=== PATIENT | female | born 1945 | race Caucasian/White ===

== ENCOUNTER 2016-03-04 09:00 | Outpatient (CLI) | payer MEDICARE | END 2016-03-04 09:01 | disposition home or self-care (01) | DX: I48.91 Unspecified atrial fibrillation (principal); Z79.899 Other long term (current) drug therapy ==

== ENCOUNTER 2016-04-01 20:18 | Outpatient (CLI) | payer MEDICARE | END 2016-04-01 20:19 | disposition home or self-care (01) | DX: I48.91 Unspecified atrial fibrillation (principal); Z79.899 Other long term (current) drug therapy ==

== ENCOUNTER 2016-04-15 12:32 | Outpatient (CLI) | payer MEDICARE | END 2016-04-15 12:33 | disposition home or self-care (01) | DX: I48.91 Unspecified atrial fibrillation (principal); Z79.899 Other long term (current) drug therapy ==

== ENCOUNTER 2016-05-06 09:15 | Outpatient (CLI) | payer MEDICARE | END 2016-05-06 09:16 | disposition home or self-care (01) | DX: I48.91 Unspecified atrial fibrillation (principal); Z79.899 Other long term (current) drug therapy ==

== ENCOUNTER 2016-05-24 08:21 | Outpatient (CLI) | payer MEDICARE | END 2016-05-24 08:22 | disposition home or self-care (01) | DX: E78.5 Hyperlipidemia, unspecified (principal); I48.91 Unspecified atrial fibrillation ==

== ENCOUNTER 2016-06-03 08:00 | Outpatient (CLI) | payer MEDICARE | END 2016-06-03 08:01 | DX: I48.91 Unspecified atrial fibrillation (principal); Z79.899 Other long term (current) drug therapy ==

== ENCOUNTER 2016-06-03 08:00 | Outpatient (CLI) | payer MEDICARE | END 2016-06-03 08:01 | disposition home or self-care (01) | DX: R73.9 Hyperglycemia, unspecified (principal) ==

== ENCOUNTER 2016-06-11 11:02 | Outpatient (CLI) | payer MEDICARE | END 2016-06-11 11:03 | disposition home or self-care (01) | DX: Z12.31 Encounter for screening mammogram for malignant neoplasm of breast (principal); R92.1 Mammographic calcification found on diagnostic imaging of breast; Z85.3 Personal history of malignant neoplasm of breast ==

== ENCOUNTER 2016-06-20 12:00 | Outpatient (CLI) | payer MEDICARE | END 2016-06-20 12:01 | disposition home or self-care (01) | DX: R92.1 Mammographic calcification found on diagnostic imaging of breast (principal) ==

== ENCOUNTER 2016-07-11 10:53 | Outpatient (CLI) | payer MEDICARE | END 2016-07-11 10:54 | disposition home or self-care (01) | LOC: LAB.N 10:53 | PROVIDERS: ATTEND Internal Medicine Cardiovascular Disease | DX: I48.91 Unspecified atrial fibrillation (principal); Z79.899 Other long term (current) drug therapy | CPT/HCPCS: 85610 ==

== ENCOUNTER 2016-07-18 10:43 | Outpatient (CLI) | payer MEDICARE | END 2016-07-18 10:44 | disposition home or self-care (01) | DX: I48.91 Unspecified atrial fibrillation (principal); Z79.899 Other long term (current) drug therapy ==

== ENCOUNTER 2016-08-02 07:52 | Outpatient (CLI) | payer MEDICARE ==
[2016-08-02 08:20] LABS: CREATININE 0.9 mg/dL (0.4-1.0)
[2016-08-02] MEDS: GADOBUTROL 10 MMOL/10 ML SYRINGE IVP ONE (09:41)
--- NOTE | 2016-08-02 12:29 | MRI Report ---
MRI BILATERAL BREASTS WITH AND WITHOUT CONTRAST: 08/02/2016 CLINICAL INDICATION: Calcifications on mammogram, discordant biopsy results, history of right breast cancer. TECHNIQUE: Using a dedicated breast coil, axial precontrast STIR, T1, dynamic postcontrast axial 3D images, axial 3D high-resolution images, and postcontrast diffusion-weighted images were obtained. A total of 9 mL of Gadavist was administered intravenously. Post-processing with dynamic contrast enh ancement analysis and multiplanar reformations were performed with [employer]. FINDINGS: The breasts demonstrate no significant background parenchymal enhancement. Right breast: Postoperative and post-treatment changes are present in the right breast. There is no evidence of abnormal enhancement to suggest recurrent or residual tumor. Postoperative changes are noted in the right axilla. No axillary adenopathy is seen. Left breast: There is no abnormal enhancement in the left breast. Biopsy marker is noted in the lef t lower central breast. Left axillary lymph nodes appear unremarkable. IMPRESSION: 1. POSTOPERATIVE AND POST-TREATMENT CHANGES IN THE RIGHT BREAST. 2. POST-BIOPSY CHANGES IN THE LEFT BREAST. RECOMMENDATION: Given discordant biopsy results on stereotactic biopsy, wire localization and surgic al excision of left breast calcifications, as planned for 08/06/2016. BIRADS CATEGORY 2 - BENIGN FINDINGS. The patient has been instructed to obtain results from Dr. Escobar. COMMENT: Breast MRI is a highly sensitive examination, and has a cancer detection threshold down to approximately 5 mm; however, it only has moderate specificity. Although breast MRI has a high negati ve predictive value, appropriate clinical and mammographic followup are always necessary. MRI may mi ss less angiogenic tumors; therefore, it should not be used to avoid a biopsy which is otherwise clin ically indicated. Normal-appearing lymph nodes may contain microscopic tumor. Due to prone position ing, the described location of findings may differ from other modalities. :9 JOB #: [id number] EXT JOB #:[id number]
== END 2016-08-02 07:53 | disposition home or self-care (01) ==
LOC: LAB 07:52
PROVIDERS: ATTEND Surgery
DX: N63 Unspecified lump in breast (principal); Z85.3 Personal history of malignant neoplasm of breast
CPT/HCPCS: 36415; 82565; A9585; C8908; 77059

== ENCOUNTER 2016-08-06 08:36 | Day surgery (SDC) | payer MEDICARE ==
[~2016-08-06 08:36] MED LIST: ceFAZolin 2 GM/50 ML 50 ML IV ONE
[2016-08-06] MEDS ORDERED: LACTATED RINGERS 1,000 ML IV ONE ×2 (09:04→14:15)
[2016-08-06] MEDS ORDERED: BUPIVACAINE 0.5%-EPI 1:200000 PF 30 ML VIAL SUBQ ONE ×2 (12:18)
[2016-08-06] MEDS: BUFFERED LIDOCAINE 10 ML SYRINGE IU ONE (12:21)
[2016-08-06] MEDS ORDERED: BUPIVACAINE 0.5% PF 30 ML VIAL SUBQ ONE (12:58)
[2016-08-06] MEDS ORDERED: fentaNYL 100 MCG/2 ML VIAL IVP ONE (13:00)
[2016-08-06] MEDS ORDERED: MIDAZOLAM 2 MG/2 ML VIAL IVP ONE (13:00)
[2016-08-06] MEDS ORDERED: ONDANSETRON 4 MG/2 ML VIAL IVP ONE (13:00)
[2016-08-06] MEDS ORDERED: LIDOCAINE-MPF 2% 5 ML VIAL IM ONE (13:00)
[2016-08-06] MEDS ORDERED: PROPOFOL 200 MG/20 ML VIAL IVP ONE (13:00)
--- NOTE | 2016-08-06 13:47 | Ultrasound Report ---
ULTRASOUND-GUIDED LEFT BREAST LOCALIZATION: 08/06/2016 Preliminary to the wire localization, an ultrasound exam was done for evaluation of a small stellate lesion noted in the upper outer quadrant of the left breast on review of patient's left mammogram prior to needle localization of calcifications within the left breast. Left breast ultrasound confirms the presence of a 1 cm mass. The mass is hypoechoic with pronounced shadowing and hyperechoic margins. Findings appear classic for breast carcinoma. This lesion is located in the 12 o'clock position 4 cm from the left nipple. Findings have a classic appearance of a breast carcinoma. Since patient is going to surgery today, it was decided to also perform a needle localization on this lesion. The needle localization was done after patient had a bracketed localization under mammographic guidance of the calcifications at the 6 o'clock position. PAR conference was held and informed consent was obtained. Patient's left breast was sterilely prepped with Betadine and Chloraprep. Sterile technique was used throughout the exam; 5 mL of buffered 1% Xylocaine was used in the skin and subcutaneous tissues of the upper outer quadrant of the left breast. Under ultrasound guidance, a 5 cm [place] needle with an inner core hook stylet was placed into the mass and the hook wire was deployed. The mass was very hard and it was difficult to deploy the wire but it was accomplished. The needle was then left in place and was covered with sterile 4 x 4. Final images were reviewed with Dr. Escobar. Also, the radiologist assisted Dr. Escobar with localizing the lesion in surgery using the surgical SonoSite unit. This was done to assure an accurate incision. IMPRESSION: 1. A 1 CM MASS IS NOTED IN THE 12 O'CLOCK POSITION OF THE LEFT BREAST 4 CM SUPERIOR TO THE NIPPLE. THIS MASS HAD CHARACTERISTICS OF A BREAST CARCINOMA ON ULTRASOUND DISCUSSED ABOVE. 2. NEEDLE LOCALIZATION IN THIS LESION WAS DONE UNDER ULTRASOUND GUIDANCE USING A HOMER 5 CM NEEDLE WITH AN INNER CORE HOOK STYLET. JOB #: [id number] EXT JOB #: [id number] HELLEN
[2016-08-06] MEDS ORDERED: oxyCOD/ACETAMIN 5 MG/325 MG TABLET PO ONE (15:43)
[2016-08-06 16:06] VITALS: BP 128/66
--- NOTE | 2016-08-07 07:43 | OPERATIVE REPORT ---
DATE OF SURGERY: 08/06/2016 00:00:00 PREOPERATIVE DIAGNOSIS: Left breast mass. POSTOPERATIVE DIAGNOSES: Left breast mass. PROCEDURE: left breast partial mastectomy SURGEON: Yuki Escobar MD ANESTHESIOLOGIST: Susan Landon CRNA ANESTHESIA: General INDICATION FOR PROCEDURE: This is a 70-year-old female who had a mammographic abnormality in the 6-o'clock position of the left breast which was biopsied; however, biopsy results were not concordant with the mammographic finding, and surgical excision was recommended. The patient on the day of the procedure went for radiologic identification with wire localization, and on this mammography a second lesion was noted in her left breast. Of note, the patient did have a preop MRI that did not suggest any other lesions other than the one lesion at the 6-o'clock position. For this reason, the radiologist placed a needle into the newly-found 1 cm lesion located in the 12-o'clock position of the left breast, which he feels is strongly likely to be carcinoma. Additionally, needle brackets were placed in the 6-o'clock calcification lesions. Prior to proceeding with surgery, a full discussion was had with the patient regarding this new finding and the increased chance of having a second surgery either for positive margins or for the necessity of a sentinel lymph node biopsy; she understands and agrees to proceed. FINDINGS: After obtaining informed consent with the patient, she was brought into the operating room and positioned on the operating table in a supine position, taking note of pressure points. The LMA was placed by Anesthesiology, 2 grams of Ancef were administered, she was prepped and draped in the usual sterile fashion, and a time-out was taken according to protocol. Ultrasound guidance was utilized to find the tip of both needles, and this was marked on the skin. A 3 cm incision was created in the 12-o'clock position approximately 4 cm above the nipple. This was deepened down, creating skin flaps and circumferentially dissecting the breast tissue around the needle. The needle was then disconnected from its hub and withdrawn with the wire remaining in place. The wire was then withdrawn into the incision cavity. The lumpectomy specimen was then completely excised, and hemostasis was achieved by packing the wound. The specimen was then marked with a long stitch placed anteriorly and a short stitch placed laterally; it was then passed off as a specimen. Attention was then turned to the 6-o'clock lesion. A 4 cm incision was created inferior to the nipple approximately 5 cm. This was deepened down, creating skin flaps and circumferentially dissecting breast tissue around the finder needles. These lesions were noted to be more deep in nature, and dissection was slightly more difficult. Upon circumferential dissection, the needles were removed and the wires left in place. The wires were then withdrawn into the incisional cavity. The lumpectomy specimen was then completely removed and the cavity packed. The specimen was marked with a long stitch superiorly and a short stitch laterally and was passed off. Both specimens were sent for radiologic confirmation of the mammographic lesions in question, and this was confirmed. Both packings were removed, and hemostasis was noted to be achieved. The cavities were irrigated. Both cavities were closed with 3-0 Vicryl for deep layers and 4-0 Monocryl for the superficial skin, and Dermabond was applied. The patient was extubated and taken to the recovery room in stable condition. ESTIMATED BLOOD LOSS: 10 mL. SPECIMENS 1. Breast lump in the 12-o'clock position. 3. Breast lump in the 6-o'clock position. JOB #: [id number] EXT JOB #:[id number] MTDPiper
--- NOTE | 2016-08-07 08:41 | Mammography Report ---
PRESURGICAL NEEDLE LOCALIZATION OF AN ELONGATED CLUSTER OF CALCIFICATIONS IN THE 6 O'CLOCK POSITION OF THE LEFT BREAST UNDER MAMMOGRAPHIC GUIDANCE: 2016 Prior to the needle localization, coned-down compression craniocaudad view of the left breast was obtained for evaluation of the stellate lesion at the 12 to 1 o'clock position in the outer half of the left breast. Coned-down craniocaudad view was done and there was still present this small stellate lesion measuring 1.6 cm. It was decided prior to the localization to obtain a left breast ultrasound for evaluation of this lesion. A report will follow on this ultrasound. PRESURGICAL LOCALIZATION: This began after patient's focal left breast ultrasound today. A PAR conference was held and informed consent was obtained. Patient's left breast was sterilely prepped with Betadine and Chloraprep after patient was placed in a localizing grid. Using a localizing grid, coordinates were obtained in the mediolateral projection of the cluster of calcification for a bracketed localization. Two 10 cm [place] needles were utilized with inner core hook stylet. Each of these needles were placed into the breast at approximately the 6 o'clock position. These needles bracketed the anterior and posterior aspect of the cluster of calcification in question. Localizing images demonstrated that the needle tips as well as the hook wires were located at the anterior and posterior borders of the cluster of calcifications. The proximal ends of the needles that were lying outside of the breast were covered with a sterile 4 x 4 after the hook wires were deployed and locked in place. The images were reviewed with patient's surgeon, Dr. Escobar, immediately before patient's surgery. Also, Dr. Galvan assisted Dr. Escobar in localizing the tips of both of the bracketing needles under ultrasound guidance for purposes of accuracy of surgical incision. The small surgical clip deployed at the time of patient's stereotactic biopsy is seen inferior to the cluster of calcifications. Dr. Escobar indicated that she will also attempt to remove this area. IMPRESSION: 1. A 1.6 CM STELLATE LESION IS NOTED IN THE 12 TO 1 O'CLOCK POSITION OF THE ANTERIOR HALF OF THE LEFT BREAST ON ADDITIONAL MAMMOGRAPHIC VIEWS. A LEFT BREAST ULTRASOUND WILL BE OBTAINED FOR FURTHER EVALUATION OF THIS FINDING. ULTRASOUND REPORT IS TO FOLLOW. 2. PRESURGICAL BRACKETED LOCALIZATION OF A SMALL CLUSTER OF CALCIFICATIONS WAS PERFORMED UNDER MAMMOGRAPHIC GUIDANCE USING TWO HOMER NEEDLES DISCUSSED ABOVE. ADDENDUM: Dr. Galvan received a voice order from patient's surgeon, Dr. Escobar for additional left breast mammogram view, left breast ultrasound, and ultrasound- guided wire localization. He did this before proceeding with these examinations. This was done in the morning of 08/06/2016. JOB #: [id number] EXT JOB #: [id number]
--- NOTE | 2016-08-07 08:43 | Mammography Report ---
FIRST SPECIMEN RADIOGRAPH: 08/06/2016 First specimen radiograph was from the lesion in the 12 o'clock position of the left breast. First s pecimen radiograph contained a hook wire in place. Within the central aspect of the specimen was a s tellate mass measuring 1.3 cm x 0.5 cm. This represents the finding noted on today's ultrasound of t he left breast. Dr. Escobar in Surgery was informed by Dr. Galvan of the successful removal of the lesion in questi on in the 12 o'clock position of the left breast. IMPRESSION: A 1.3 CM X 0.5 CM SPICULATED MASS IS NOTED IN THE SPECIMEN RADIOGRAPH. IT REPRESENTS TH E LESION SEEN ON TODAY'S ULTRASOUND IN THE 12 O'CLOCK POSITION OF THE LEFT BREAST. JOB #: [id number] EXT JOB #:
--- NOTE | 2016-08-07 09:43 | Mammography Report ---
EXAM: [id number] MARY/SPECSUR SECOND SPECIMEN RADIOGRAPH: 08/06/2016 This represents the second specimen removed from the left breast. Specimen radiograph demonstrates t wo hook wires in place in association with the cluster of calcifications in question within the speci men. These calcifications reside within the distal aspect of the hook wires. The specimen indicates successful removal of the cluster of calcifications in question on pre-surgical mammograms. Dr. Escobar in Surgery was informed of the successful removal of the cluster of calcifications in qu estion. This was done by Dr. Galvan. IMPRESSION: SPECIMEN RADIOGRAPH 2 CONFIRMS THE SUCCESSFUL REMOVAL OF THE CLUSTER OF CALCIFICATIONS P RESENT IN THE 6 O'CLOCK POSITION OF THE PRE-SURGICAL LEFT MAMMOGRAM. JOB #: [id number] EXT JOB #:[id number]
== END 2016-08-06 08:37 | disposition home or self-care (01) ==
LOC: DI 08:36
PROVIDERS: ATTEND Surgery
PROC: 0HBU0ZX Excision of Left Breast, Open Approach, Diagnostic (ICD-10-PCS; principal; 2016-08-06 11:15)
DX: C50.912 Malignant neoplasm of unspecified site of left female breast (principal); D24.2 Benign neoplasm of left breast; I48.91 Unspecified atrial fibrillation; I25.2 Old myocardial infarction; K21.9 Gastro-esophageal reflux disease without esophagitis; E66.9 Obesity, unspecified; Z68.35 Body mass index [BMI] 35.0-35.9, adult; Z79.01 Long term (current) use of anticoagulants; Z87.891 Personal history of nicotine dependence; Z90.11 Acquired absence of right breast and nipple; Z92.21 Personal history of antineoplastic chemotherapy; Z92.3 Personal history of irradiation; Z95.5 Presence of coronary angioplasty implant and graft
CPT/HCPCS: 19125; 19126; 19281; 19285; 76098; A9270; J0690; J7120; 88305; 88307; 88341; 88342; 88360

== ENCOUNTER 2016-08-19 09:19 | Day surgery (SDC) | payer MEDICARE ==
[2016-08-19] MEDS ORDERED: BUPIVACAINE 0.5%-EPI 1:200000 PF 10 ML VIAL SUBQ ONE (11:13)
[2016-08-19] MEDS ORDERED: LIDOCAINE 1% 50 ML MDV SUBQ ONE ×2 (11:14)
[2016-08-19] MEDS ORDERED: METHYLENE BLUE 100 MG/10 ML VIAL IVP ONE ×2 (11:14)
[2016-08-19] MEDS ORDERED: fentaNYL 100 MCG/2 ML VIAL IVP ONE (12:00)
[2016-08-19] MEDS ORDERED: ONDANSETRON 4 MG/2 ML VIAL IVP ONE (12:00)
[2016-08-19] MEDS ORDERED: LIDOCAINE 2% 10 ML MDV SUBQ ONE (12:00)
[2016-08-19] MEDS ORDERED: PROPOFOL 200 MG/20 ML VIAL IVP ONE (12:00)
[2016-08-19] MEDS ORDERED: DEXAMETHASONE 4 MG/ML VIAL IVP ONE (12:00)
[2016-08-19] MEDS ORDERED: MIDAZOLAM 2 MG/2 ML VIAL IVP ONE (12:00)
[2016-08-19] MEDS ORDERED: ceFAZolin 1 GM VIAL IV ONE (12:00)
[2016-08-19] MEDS ORDERED: LACTATED RINGERS 1,000 ML IV ONE ×2 (12:06→13:55)
--- NOTE | 2016-08-19 12:43 | Nuclear Medicine Report ---
LEFT BREAST INJECTION FOR SENTINEL LYMPH NODE IDENTIFICATION: 08/19/2016 CLINICAL INDICATION: Left breast cancer. FINDINGS: One mCi of technetium-99m filtered sulfur colloid in 4 mL buffered lidocaine was injected intradermally into the left areola. Anterior imaging demonstrates only nipple activity. Discussed with Dr. Escobar in the operating room on 08/19/2016. IMPRESSION: LEFT BREAST INJECTION, BUT NO LEFT AXILLARY UPTAKE IS IDENTIFIED ON ANTERIOR IMAGING. JOB #: [id number] EXT JOB #:[id number]
[2016-08-19] MEDS ORDERED: HYDROmorphone 1 MG/ML SYRINGE ONE (13:25)
[2016-08-19] MEDS ORDERED: KETOROLAC 15 MG/ML VIAL ONE (13:43)
[2016-08-19] MEDS ORDERED: oxyCOD/ACETAMIN 5 MG/325 MG TABLET PO ONE (13:55)
[2016-08-19 14:26] VITALS: BP 109/68
--- NOTE | 2016-08-20 11:10 | OPERATIVE REPORT ---
DATE OF SURGERY: 08/19/2016 00:00:00 PREOPERATIVE DIAGNOSIS: Left breast cancer. POSTOPERATIVE DIAGNOSIS: Left breast cancer. PROCEDURE: Left sentinel lymph node biopsy. SURGEON: Yuki Escobar MD ANESTHESIA: General by Susan Landon CRNA INDICATIONS FOR PROCEDURE: This is a 70-year-old female for whom I performed left breast needle localized excisional biopsies for 2 separate lesions in her left breast; 1 came back positive for invasive cancer. She had not preoperatively had stereotactic biopsy on this lesion because it was not initially seen on her diagnostic mammography, it was only seen on the day of the surgery, when she was being localized for the lesion located at the 6 o' clock position. The lesion in the 12-o'clock position came back positive for breast cancer, and subsequently the patient is being scheduled for a sentinel lymph node biopsy. Prior to the procedure she underwnt sentinel lymph node mapping. FINDINGS: After obtaining informed consent from the patient, she was brought in to the operating room and positioned on the operating table in the supine position, taking note of pressure points. She was administered 2 grams of Ancef. She was sedated by Anesthesia. 5 mL methylene blue was then injected into her left periareolar region and the breast massaged for 5 min. She was then prepped and draped in the usual sterile fashion, and a timeout was taken according to protocol. Subsequently an incision was made in the inferior axillary region approximately 3 cm in length; this was deepened down through the subcutaneous tissue to the fascial layer, which was incised, entering the axillary space. The Neoprobe was utilized to attempt to locate lymph nodes; however, no signal was found. Additionally no blue nodes were found. I did speak with the radiologist at this point to discuss whether or not the tracer was detected on his imaging, and he states that it did not migrate to the axilla. I believe this is secondary to her having undergone the partial mastectomy 1 week prior. In any case, I felt around her axillary space for any enlarged lymph nodes. Small lymph nodes were encountered, but no enlarged lymph nodes were encountered. Four small lymph nodes were excised and sent off as specimens. None of them were noted to be blue, and none of them had a Neoprobe signal. After careful inspection of the axillary space, no additional lymph nodes were felt and no blue dye or neoprobe signal was identified. At this point, the axillary cavity was irrigated and was closed in layers with 3-0 Vicryl and 4-0 Monocryl; 30 mL of local anesthetic was utilized. Steri-Strips and Telfa and Tegaderm were applied. The patient was then taken to recovery in stable condition. ESTIMATED BLOOD LOSS: Minimal. COMPLICATIONS: None. SPECIMENS: Four axillary lymph nodes. JOB #: [id number] [facility] JOB #:[id number] [facility]ITAL[facility]
--- NOTE | 2016-08-21 12:53 | HISTORY & PHYSICAL EXAMINATION ---
HPI - History of Present Illness HPI Comment/Other: This is to reflect H and P performed on 08/19. Nora is here today to proceed with sentinel lymph node biopsy. she underwent needle localization partial mastectomy of two left breast lesions last week and one is positive for invasive breast cancer. On the day of her scheduled surgery last week, the radiologist performing the localization called to inform be that a second lesion was found in the 12 o'clock position and he felt strongly that it was cancer. The localization wire was placed and I informed the patient of these findings. I did indicated that typically a stereotactic biopsy is performed prior to surgery, but as she had the wire placed and was booked for excision of the other lesion she elected to proceed with lumpectomy of both lesions. This was performed and the 12 o'clock lesion was positive for breast cancer while the 6 o'clock position lesion was benign. She is here today to proceed with left SLNB. Past Medical History: Reviewed history from 02/26/2013 and no changes required: NKDA Right hip fx 2012 A fib Acid Reflux cardiac stent [place] Past Surgical History: Reviewed history from 02/26/2013 and no changes required: Right breast lumpectomy: 2002 Left wrist surgery secondary to fracture: 2005 Cardiac stent placed: 1996 temporal artery bx: 2009 Right hip fx 2012 - Dr. Jones Left breast partial mastectomy. Family History Summary: Reviewed history and no changes required: 07/09/2016 Mother (biol.) - Has Family History of Other Medical Problems - Osteoporosis - Entered On: 07/09/2016 General Comments - FH: Dad with alzheimers dz Brother with esophageal ca mom with [place], osteoporosis cousin: DM Social History: Reviewed history from 10/15/2012 and no changes required: Patient is a former smoker. Passive smoke exposure - no Alcohol Use - yes Drug Use - no HIV/High Risk - no Regular Exercise - yes Risk Factors: Smoked Tobacco Use: Former smoker Smokeless Tobacco Use: Never Passive smoke exposure: no Drug use: no HIV high-risk behavior: no Caffeine use: <1 drinks per day Alcohol use: yes Type: 1x week Drinks per day: <1 Exercise: yes Times per week: 3 Type of Exercise: Treadmill Seatbelt use: 100 % Sun Exposure: rarely Review of Systems See HPI Physical Exam General: well developed, well nourished, in no acute distress Breasts: Well healing incisions on left breast. No erythema. Lungs: clear bilaterally to A & P Heart: irregular Abdomen: bowel sounds positive; abdomen soft and non-tender without masses, organomegaly, or hernias noted Pulses: pulses normal in all 4 extremities Extremities: no clubbing, cyanosis, edema, or deformity noted with normal full range of motion of all joints Cervical Nodes: no significant adenopathy Axillary Nodes: no significant adenopathy Psych: alert and cooperative; normal mood and affect; normal attention span and concentration Impression & Recommendations: left breast cancer Will proceed with left sentinel lymph node biopsy. She has received her radionucleotide injection. PMH/PSH - Past Medical History Cardiovascular: positive: Coronary artery disease, [place], Atrial fibrillation Respiratory: positive: None Neuro: positive: None Endocrine/Autoimmune: positive: None GI: positive: GERD, Ulcers STONE BELT SANDER: positive: None : positive: None HEENT: positive: None Psych: positive: None Musculoskeletal: positive: Osteopenia, Chronic back pain Derm: positive: None MRSA Hx?: No - Past Surgical History Ortho: positive: Other /STONE BELT SANDER: positive: Other HEENT: positive: Cataracts Social & Family Hx - Social History Does the pt smoke?: No Smoking Status: Former smoker Does the pt drink ETOH?: Yes ETOH Use: Wine Does the pt have substance abuse?: No - POLST Patient has POLST: No Meds/Allgy - Home Medications Home Medications: Ambulatory Orders Medication Instructions Recorded Confirmed Diltiazem HCl [Dilt-Xr] 240 mg PO DAILY 12/08/12 08/19/16 HYDROcodone/ACET 10/325 [Assonet 10 1 each PO Q4-6H PRN 12/08/12 08/19/16 mg/325 mg] Metoprolol Tartrate 150 mg PO BID 12/08/12 08/19/16 Omeprazole [PriLOSEC] 20 mg PO DAILY 12/08/12 08/19/16 Potassium Chloride [Klor-Con 8] 10 meq PO DAILY 12/08/12 08/19/16 hydroCHLOROthiazide [Hydrodiuril] 12.5 mg PO DAILY 12/08/12 08/19/16 Gabapentin 300 mg PO BID 11/04/13 08/19/16 Warfarin [Coumadin] 2.5 mg PO 1400 11/04/13 08/19/16 Furosemide [Lasix] 40 mg PO DAILY PRN 07/18/16 08/19/16 Cholecalciferol (Vitamin D3) 1,000 unit PO DAILY 08/19/16 08/19/16 [Vitamin D3] - Allergies Allergies/Adverse Reactions: Allergies Allergy/AdvReac Type Severity Reaction Status Date / Time No Known Drug Allergies Allergy Verified 12/08/12 00:26
== END 2016-08-19 09:20 | disposition home or self-care (01) ==
LOC: DI 09:19
PROVIDERS: ATTEND Surgery
PROC: 07B60ZX Excision of Left Axillary Lymphatic, Open Approach, Diagnostic (ICD-10-PCS; principal; 2016-08-19 12:30)
DX: C50.912 Malignant neoplasm of unspecified site of left female breast (principal); M85.80 Other specified disorders of bone density and structure, unspecified site; I48.91 Unspecified atrial fibrillation; K21.9 Gastro-esophageal reflux disease without esophagitis; K22.70 Barrett's esophagus without dysplasia; I25.2 Old myocardial infarction; Z95.5 Presence of coronary angioplasty implant and graft; Z82.0 Family history of epilepsy and other diseases of the nervous system; Z80.0 Family history of malignant neoplasm of digestive organs; Z79.01 Long term (current) use of anticoagulants; Z82.49 Family history of ischemic heart disease and other diseases of the circulatory system; Z82.62 Family history of osteoporosis; Z83.3 Family history of diabetes mellitus; Z87.891 Personal history of nicotine dependence
CPT/HCPCS: 38500; 78195; A9270; A9541; J1170; J7120; 88307

== ENCOUNTER 2016-09-02 08:00 | Outpatient (CLI) | payer MEDICARE | END 2016-09-02 08:01 | disposition home or self-care (01) | LOC: LAB.N 08:00 | PROVIDERS: ATTEND Internal Medicine Cardiovascular Disease | DX: I48.91 Unspecified atrial fibrillation (principal); Z79.899 Other long term (current) drug therapy | CPT/HCPCS: 85610 ==

== ENCOUNTER 2016-09-30 10:02 | Outpatient (CLI) | payer MEDICARE | END 2016-09-30 10:03 | disposition home or self-care (01) | LOC: LAB.N 10:02 | PROVIDERS: ATTEND Internal Medicine Cardiovascular Disease | DX: I48.91 Unspecified atrial fibrillation (principal); Z79.899 Other long term (current) drug therapy | CPT/HCPCS: 85610 ==

== ENCOUNTER 2016-10-28 08:00 | Outpatient (CLI) | payer MEDICARE | END 2016-10-28 08:01 | disposition home or self-care (01) | LOC: LAB.N 08:00 | PROVIDERS: ATTEND Internal Medicine Cardiovascular Disease | DX: I48.91 Unspecified atrial fibrillation (principal); Z79.899 Other long term (current) drug therapy | CPT/HCPCS: 85610 ==

== ENCOUNTER 2016-11-11 12:47 | Outpatient (CLI) | payer MEDICARE ==
--- NOTE | 2016-11-11 18:11 | MRI Report ---
EXAM: RIGHT SHOULDER MRI WITHOUT CONTRAST EXAM DATE: 11/11/2016 01:46 PM. CLINICAL HISTORY: Anterior dislocation of right humerus, sequela. COMPARISON: Plain x-ray from 01/21/2016. TECHNIQUE: Multiplanar, multisequence T1-weighted and fluid-sensitive sequences of the shoulder witho ut contrast. Other: None. FINDINGS: Acromioclavicular Region: The acromion is type II. AC joint is moderately osteoarthritic with a small AC joint effusion. The coracoacromial and coracoclavicular ligaments are intact. Large amount of bur marilyn fluid is present. Glenohumeral Region: Severe subluxation of the humeral head with respect to the bony glenoid and pseu doarticulation with the undersurface of the acromion. Large joint effusion. Some debris also seen dep endently within the joint. Loss of articular cartilage at the humeral head. The glenohumeral ligament s and joint capsule are unremarkable. Bone Marrow: Bone marrow shows focal areas of abnormal mixed T1 and T2 signal in the superior most as pect of the humeral head and also superolaterally. Please see series 501 image 14, series 801 image 3 5. Labrum: The labrum is unremarkable on this nonarthrographic study. Musculature/Rotator Cuff: Full-thickness tear and proximal retraction of the supraspinatus, infraspi natus, and subscapularis portions of the rotator cuff. There may be minimal residual attachment of th e teres minor. Marked fatty atrophy of the supraspinatus, infraspinatus and subscapularis muscle bund les. Biceps Tendon: Long head of the biceps tendon is subluxed into the anterior aspect of the joint, out of the bicipital groove. It does attach to the biceps labral attachment. Other: The subcutaneous tissues are unremarkable. IMPRESSION: 1. Type II unipartite undersurface osseous acromion shape. AC joint is moderately osteoarthritic with small AC joint effusion. Large amount of bursal fluid is present. 2. Superior subluxation of humeral head with respect to the bony glenoid, secondary to full-thickness tear and proximal retraction of the subscapularis, supraspinatus and infraspinatus portions of the r otator cuff. Long head biceps tendon is subluxed into the anterior glenohumeral joint, attached to th e biceps labral attachment. Labrum shows no focal tears. Marked fatty atrophy of the supraspinatus, i nfraspinatus and subscapularis portions of the cuff. [facility] MUSCULOSKELET[facility] RADIOLOG[facility] SECTION Referring Provider Line: [phone] SITE ID: [id number]
== END 2016-11-11 12:48 | disposition home or self-care (01) ==
LOC: DI 12:47
PROVIDERS: ATTEND Physician Assistant Medical
DX: M19.011 Primary osteoarthritis, right shoulder (principal); M75.101 Unspecified rotator cuff tear or rupture of right shoulder, not specified as traumatic; S43.001A Unspecified subluxation of right shoulder joint, initial encounter

== ENCOUNTER 2016-12-02 11:47 | Outpatient (CLI) | payer MEDICARE | END 2016-12-02 11:48 | disposition home or self-care (01) | LOC: LAB.N 11:47 | PROVIDERS: ATTEND Internal Medicine Cardiovascular Disease | DX: I48.91 Unspecified atrial fibrillation (principal); Z79.899 Other long term (current) drug therapy | CPT/HCPCS: 85610 ==

== ENCOUNTER 2016-12-30 10:04 | Outpatient (CLI) | payer MEDICARE | END 2016-12-30 10:05 | disposition home or self-care (01) | LOC: LAB.N 10:04 | PROVIDERS: ATTEND Internal Medicine Cardiovascular Disease | DX: I48.91 Unspecified atrial fibrillation (principal); Z79.899 Other long term (current) drug therapy | CPT/HCPCS: 85610 ==

== ENCOUNTER 2017-01-06 09:22 | Outpatient (CLI) | payer MEDICARE | END 2017-01-06 09:23 | disposition home or self-care (01) | LOC: LAB.N 09:22 | PROVIDERS: ATTEND Internal Medicine Cardiovascular Disease | DX: I48.91 Unspecified atrial fibrillation (principal); Z79.899 Other long term (current) drug therapy | CPT/HCPCS: 85610 ==

== ENCOUNTER 2017-01-13 13:07 | Outpatient (CLI) | payer MEDICARE | END 2017-01-13 13:08 | LOC: LAB.N 13:07 | PROVIDERS: ATTEND Internal Medicine Cardiovascular Disease | DX: I48.91 Unspecified atrial fibrillation (principal); Z79.899 Other long term (current) drug therapy | CPT/HCPCS: 85610 ==

== ENCOUNTER 2017-01-20 10:49 | Outpatient (CLI) | payer MEDICARE | END 2017-01-20 10:50 | disposition home or self-care (01) | LOC: LAB.N 10:49 | PROVIDERS: ATTEND Internal Medicine Cardiovascular Disease | DX: I48.91 Unspecified atrial fibrillation (principal); Z79.899 Other long term (current) drug therapy | CPT/HCPCS: 85610 ==

== ENCOUNTER 2017-01-27 08:00 | Outpatient (CLI) | payer MEDICARE | END 2017-01-27 08:01 | disposition home or self-care (01) | LOC: LAB.N 08:00 | PROVIDERS: ATTEND Internal Medicine Cardiovascular Disease | DX: I48.91 Unspecified atrial fibrillation (principal); Z79.899 Other long term (current) drug therapy | CPT/HCPCS: 85610 ==

== ENCOUNTER 2017-02-07 10:10 | Outpatient (CLI) | payer MEDICARE | END 2017-02-07 10:11 | disposition home or self-care (01) | LOC: LAB.N 10:10 | PROVIDERS: ATTEND Internal Medicine Cardiovascular Disease | DX: I48.91 Unspecified atrial fibrillation (principal); Z79.899 Other long term (current) drug therapy | CPT/HCPCS: 85610 ==

== ENCOUNTER 2017-02-20 10:18 | Outpatient (CLI) | payer MEDICARE ==
--- NOTE | 2017-02-21 08:56 | Mammography Report ---
DATE OF SERVICE: 02/20/2017 DIGITAL LEFT DIAGNOSTIC MAMMOGRAM: 02/20/2017 COMPARISON: Mammogram 08/06/2016. INDICATION: This is a 71-year-old woman who had two left excisional biopsies. One was malignant and one was benign. Preoperative mammography of 08/06/2016 is used as comparison. TECHNIQUE: Multiple views of the left breast including magnification views, CC , MLO, and ML. FINDINGS: There is increased density and architectural distortion about the area of presurgical architectural distortion of the lower outer left breast approximately 3-4 o'clock at anterior to mid depth. It is unclear if findings represent normal scar formation or recurrent mass. In other regards there is no new concerning cluster of microcalcifications. Previous microcalcifications have been excised. IMPRESSION: BIRADS category: 0. Additional imaging is required. Recommend followup bilateral breast MRI in this complex patient. STANDARD QUALIFYING STATEMENTS 1. This examination was reviewed with the aid of Computed-Aided Detection (CAD) . 2. A negative or benign imaging report should not delay biopsy if clinically suspicious findings are present. Consider surgical consultation if warranted. More than 5% of cancers are not identified by imaging. 3. Dense breasts may obscure an underlying neoplasm. TD: 02/20/2017 19:25 HELLEN
== END 2017-02-20 10:19 | disposition home or self-care (01) ==
LOC: DI 10:18
PROVIDERS: ATTEND Internal Medicine Hematology & Oncology
DX: C50.912 Malignant neoplasm of unspecified site of left female breast (principal)

== ENCOUNTER 2017-02-21 09:00 | Outpatient (CLI) | payer MEDICARE | END 2017-02-21 09:01 | disposition home or self-care (01) | LOC: LAB.N 09:00 | PROVIDERS: ATTEND Internal Medicine Cardiovascular Disease | DX: I48.91 Unspecified atrial fibrillation (principal); Z79.899 Other long term (current) drug therapy | CPT/HCPCS: 85610 ==

== ENCOUNTER 2017-03-07 11:11 | Outpatient (CLI) | payer MEDICARE | END 2017-03-07 11:12 | disposition home or self-care (01) | LOC: LAB.N 11:11 | PROVIDERS: ATTEND Internal Medicine Cardiovascular Disease | DX: I48.91 Unspecified atrial fibrillation (principal) | CPT/HCPCS: 85610 ==

== ENCOUNTER 2017-03-13 08:00 | Outpatient (CLI) | payer MEDICARE | END 2017-03-13 08:01 | disposition home or self-care (01) | LOC: LAB.N 08:00 | PROVIDERS: ATTEND Internal Medicine Cardiovascular Disease | DX: I48.91 Unspecified atrial fibrillation (principal); Z79.899 Other long term (current) drug therapy | CPT/HCPCS: 85610 ==

== ENCOUNTER 2017-03-24 11:48 | Outpatient (CLI) | payer MEDICARE ==
[2017-03-24 12:12] LABS: CREATININE 0.9 mg/dL (0.4-1.0)
[2017-03-24] MEDS ORDERED: GADOBUTROL 10 MMOL/10 ML VIAL IVP ONE (12:40)
--- NOTE | 2017-03-24 16:19 | MRI Report ---
DATE OF SERVICE: 03/24/2017 MRI OF BILATERAL BREASTS WITH AND WITHOUT CONTRAST: 03/24/2017 CLINICAL INDICATION: Increased density and architectural distortion on immediate post-lumpectomy mammogram. COMPARISON: Mammogram 02/20/2017, 08/06/2016, 06/11/2016, 04/21/2015, 03/01/2014, 08/27/2012, 07/11/2011, 06/25/2010, 04/20/2009. TECHNIQUE: Using a dedicated breast coil, axial precontrast STIR, T1, dynamic postcontrast axial 3-D images, axial 3-D high resolution images, and postcontrast diffusion-weighted images were obtained. 9 mL Gadavist was administered intravenously. Postprocessing with dynamic contrast enhancement analysis and multiplanar reformations were performed with [employer]. FINDINGS: The breasts demonstrate minimal background parenchymal enhancement. RIGHT BREAST: No mass, abnormal enhancement, or region of architectural distortion is identified. Right axillary lymph nodes appear morphologically unremarkable. Postsurgical changes appear stable. LEFT BREAST: Postoperative changes are present in the left breast. No abnormal enhancement is seen. Left axillary lymph nodes appear morphologically normal. IMPRESSION: EXPECTED POSTOPERATIVE CHANGES. NO ABNORMAL ENHANCEMENT, MASS LESION, OR ARCHITECTURAL DISTORTION. RECOMMENDATION: DIAGNOSTIC BILATERAL MAMMOGRAM IN SIX MONTHS. BIRADS CATEGORY 3-PROBABLE BENIGN FINDINGS. The patient has been instructed to obtain results from Dr. King in five business days. COMMENT: Breast MRI is a highly sensitive examination, and has a cancer detection threshold down to approximately 5 mm; however, it only has moderate specificity. Although breast MRI has a high negative predictive value, appropriate clinical and mammographic followup are always necessary. MRI may miss less angiogenic tumors; therefore, it should not be used to avoid a biopsy which is otherwise clinically indicated. Normal appearing lymph nodes may contain microscopic tumor. Due to prone positioning, the described location of findings may differ from other modalities. TD: 03/24/2017 16:18
== END 2017-03-24 11:49 | disposition home or self-care (01) ==
LOC: LAB 11:48
PROVIDERS: ATTEND Internal Medicine Hematology & Oncology
DX: C50.912 Malignant neoplasm of unspecified site of left female breast (principal)
CPT/HCPCS: 36415; 82565; A9585; C8908; 77059

== ENCOUNTER 2017-04-03 13:10 | Outpatient (CLI) | payer MEDICARE | END 2017-04-03 13:11 | disposition home or self-care (01) | LOC: LAB.N 13:10 | PROVIDERS: ATTEND Internal Medicine Cardiovascular Disease | DX: I48.91 Unspecified atrial fibrillation (principal); Z79.899 Other long term (current) drug therapy | CPT/HCPCS: 85610 ==

== ENCOUNTER 2017-05-01 13:32 | Outpatient (CLI) | payer MEDICARE | END 2017-05-01 13:33 | disposition home or self-care (01) | LOC: LAB.N 13:32 | PROVIDERS: ATTEND Internal Medicine Cardiovascular Disease | DX: I48.91 Unspecified atrial fibrillation (principal); Z79.899 Other long term (current) drug therapy | CPT/HCPCS: 85610 ==

== ENCOUNTER 2017-05-15 09:58 | Outpatient (CLI) | payer MEDICARE ==
--- NOTE | 2017-05-15 11:22 | XRAY Report ---
THREE VIEW LEFT KNEE: 05/15/2017 CLINICAL INDICATION: Pain. FINDINGS: AP, lateral, sunrise views of the left knee demonstrate moderate osteoarthritis. There is no evidence of acute fracture or dislocation. A small effusion is present. Vascular calcifications are seen. IMPRESSION: MODERATE OSTEOARTHRITIS, WITH A SMALL EFFUSION. TD: 05/15/2017 11:21
== END 2017-05-15 09:59 | disposition home or self-care (01) ==
LOC: DI 09:58
PROVIDERS: ATTEND Physician Assistant Medical
DX: M17.12 Unilateral primary osteoarthritis, left knee (principal); M25.462 Effusion, left knee; I48.91 Unspecified atrial fibrillation; Z79.899 Other long term (current) drug therapy
CPT/HCPCS: 85610

== ENCOUNTER 2017-05-15 10:11 | Outpatient (CLI) | payer MEDICARE | END 2017-05-15 10:12 | disposition home or self-care (01) | LOC: LAB 10:11 | PROVIDERS: ATTEND Internal Medicine Cardiovascular Disease | DX: I48.91 Unspecified atrial fibrillation (principal); Z79.899 Other long term (current) drug therapy | CPT/HCPCS: 85610 ==

== ENCOUNTER 2017-06-10 11:07 | Day surgery (SDC) | payer MEDICARE ==
[2017-06-10] MEDS: LACTATED RINGERS 1,000 ML IV ONE (11:33)
[2017-06-10] MEDS: BENZOCAINE/TETRACAINE/BUTAMBEN SPRAY 56 GM TOP ONE (11:59)
[2017-06-10] MEDS ORDERED: fentaNYL 100 MCG/2 ML VIAL IVP ONE (12:04)
[2017-06-10] MEDS ORDERED: MIDAZOLAM 2 MG/2 ML VIAL IVP ONE (12:04)
[2017-06-10 13:14] VITALS: BP 122/65
== END 2017-06-10 11:08 | disposition home or self-care (01) ==
LOC: SDS 11:07
PROVIDERS: ATTEND Surgery
PROC: 0DB78ZX Excision of Stomach, Pylorus, Via Natural or Artificial Opening Endoscopic, Diagnostic (ICD-10-PCS; 2017-06-10)
PROC: 0DB48ZX Excision of Esophagogastric Junction, Via Natural or Artificial Opening Endoscopic, Diagnostic (ICD-10-PCS; principal; 2017-06-10 12:15)
DX: K22.70 Barrett's esophagus without dysplasia (principal); K44.9 Diaphragmatic hernia without obstruction or gangrene; K31.89 Other diseases of stomach and duodenum; I48.91 Unspecified atrial fibrillation; Z79.01 Long term (current) use of anticoagulants; K21.9 Gastro-esophageal reflux disease without esophagitis; Z87.891 Personal history of nicotine dependence; Z79.810 Long term (current) use of selective estrogen receptor modulators (SERMs)
CPT/HCPCS: 43239; A9270; J7120; 88305

== ENCOUNTER 2017-06-24 08:00 | Outpatient (CLI) | payer MEDICARE | END 2017-06-24 08:01 | disposition home or self-care (01) | LOC: LAB.N 08:00 | PROVIDERS: ATTEND Internal Medicine Cardiovascular Disease | DX: I48.91 Unspecified atrial fibrillation (principal); Z79.899 Other long term (current) drug therapy | CPT/HCPCS: 85610 ==

== ENCOUNTER 2017-07-29 08:00 | Outpatient (CLI) | payer MEDICARE | END 2017-07-29 08:01 | LOC: LAB.N 08:00 | PROVIDERS: ATTEND Internal Medicine Cardiovascular Disease | DX: I48.91 Unspecified atrial fibrillation (principal); Z79.899 Other long term (current) drug therapy | CPT/HCPCS: 85610 ==

== ENCOUNTER 2017-08-12 10:46 | Outpatient (CLI) | payer MEDICARE | END 2017-08-12 10:47 | disposition home or self-care (01) | LOC: LAB.N 10:46 | PROVIDERS: ATTEND Internal Medicine Cardiovascular Disease | DX: I48.91 Unspecified atrial fibrillation (principal); Z79.899 Other long term (current) drug therapy | CPT/HCPCS: 85610 ==

== ENCOUNTER 2017-08-28 12:54 | Outpatient (CLI) | payer MEDICARE ==
--- NOTE | 2017-08-28 16:22 | Mammography Report ---
Procedure Date: 08/28/2017 Accession Number: [id number] / [id number] Procedure: MARY - Diagnostic Dig Bilat CPT Code: FULL RESULT: EXAM: Diagnostic Dig Bilat DATE: 08/28/2017 1:32 PM CLINICAL HISTORY: Follow-up left breast cancer post excision and radiation therapy, remote history of right breast cancer status post lumpectomy and radiation therapy. TECHNIQUE: Bilateral CC and MLO views, left true lateral and spot magnification views. COMPARISON: 02/20/2017, 08/06/2016, 06/20/2016, 06/11/2016, 04/21/2015, 03/01/2014, 08/27/2012, 07/11/2011, 06/25/2010, 04/20/2009 FINDINGS: The breasts again demonstrate scattered fibroglandular densities bilaterally. Postoperative and posttreatment changes are present bilaterally. Coarse, typically benign calcifications are present. Previously biopsied nodule in the left breast is unchanged. No suspicious masses, clustered microcalcifications, or new regions of architectural distortion are identified. IMPRESSION: Probable benign postoperative changes in the left breast. RECOMMENDATION: Diagnostic left mammogram in 6 months. BIRADS CATEGORY 3: Probable benign findings STANDARD QUALIFYING STATEMENTS: 1. This examination was reviewed with the aid of Computer-Aided Detection (CAD). 2. A negative or benign imaging report should not delay biopsy if clinically suspicious findings are present. Consider surgical consultation if warrented. More than 5% of cancers are not identified by imaging. 3. Dense breasts may obscure an underlying neoplasm.
== END 2017-08-28 12:55 | disposition home or self-care (01) ==
LOC: DI 12:54
PROVIDERS: ATTEND Internal Medicine Hematology & Oncology
DX: C50.912 Malignant neoplasm of unspecified site of left female breast (principal)
CPT/HCPCS: 77066

== ENCOUNTER 2017-09-09 08:00 | Outpatient (CLI) | payer MEDICARE | END 2017-09-09 08:01 | disposition home or self-care (01) | LOC: LAB.N 08:00 | PROVIDERS: ATTEND Internal Medicine Cardiovascular Disease | DX: I48.91 Unspecified atrial fibrillation (principal); Z79.899 Other long term (current) drug therapy | CPT/HCPCS: 85610 ==

== ENCOUNTER 2017-09-23 08:00 | Outpatient (CLI) | payer MEDICARE | END 2017-09-23 08:01 | disposition home or self-care (01) | LOC: LAB.N 08:00 | PROVIDERS: ATTEND Internal Medicine Cardiovascular Disease | DX: I48.91 Unspecified atrial fibrillation (principal); Z79.899 Other long term (current) drug therapy | CPT/HCPCS: 85610 ==

== ENCOUNTER 2017-09-29 09:08 | Outpatient (CLI) | payer MEDICARE ==
[2017-09-29 13:08] LABS: BASOPHILS % (AUTO) 0.6 %; EOSINOPHILS # (AUTO) 0.1 10^3/uL (0.0-0.7); EOSINOPHILS % (AUTO) 1.4 %; HGB - HEMOGLOBIN 12.4 g/dL (12.0-16.0); LYMPHOCYTES # (AUTO) 1.2 10^3/uL (1.5-3.5); MEAN CORPUSCULAR HEMOGLOBIN 34.5 pg (27.0-31.0); MEAN CORPUSCULAR HGB CONC 33.7 g/dL (32.0-36.0); MEAN CORPUSCULAR VOLUME 102.3 fL (81.0-99.0); MEAN PLATELET VOLUME 8.9 fL (7.9-10.8); MONOCYTES # (AUTO) 0.9 10^3/uL (0.0-1.0); MONOCYTES % (AUTO) 10.6 %; NEUTROPHILS # (AUTO) 5.9 10^3/uL (1.5-6.6); NEUTROPHILS % (AUTO) 72.4 %; PLT - PLATELET COUNT 243 10^3/uL (130-450); RED BLOOD COUNT 3.59 10^6/uL (4.20-5.40); WHITE BLOOD COUNT 8.1 x10^3/uL (4.8-10.8)
[2017-09-29 13:31] LABS: ALBUMIN 3.4 g/dL (3.2-5.5); ALBUMIN/GLOBULIN RATIO 0.8 (1.0-2.2); ALKALINE PHOSPHATASE 92 IU/L (42-121); ALT ALANINE AMINOTRANSFERASE 21 IU/L (10-60); AST ASPARTATE AMINOTRANSFERASE 72 IU/L (10-42); BILIRUBIN,TOTAL 1.3 mg/dL (0.2-1.0); BUN - BLOOD UREA NITROGEN 13 mg/dL (6-20); CALCIUM 8.9 mg/dL (8.5-10.3); CARBON DIOXIDE - CO2 27 mmol/L (21-32); CHLORIDE 102 mmol/L (101-111); CHOL/HDL RATIO 3.6 (<4.4); CHOLESTEROL 174 mg/dL; CREATININE 0.6 mg/dL (0.4-1.0); GFR - MDRD 99 (>89); GLUCOSE 137 mg/dL (70-100); HDL CHOLESTEROL 48 mg/dL; LDL CHOLESTEROL,CALCULATED 101 mg/dL; LDL/HDL RATIO 2.1 (<4.4); SODIUM 139 mmol/L (135-145); TOTAL PROTEIN 7.6 g/dL (6.7-8.2); VLDL CHOLESTEROL 25 mg/dL
[2017-09-29 14:10] LABS: HB2 TOTAL 13.3 g/dL; HEMOGLOBIN A1C 0.49 g/dL; HEMOGLOBIN A1C % 5.5 % (4.6-6.2)
== END 2017-09-29 09:09 | disposition home or self-care (01) ==
LOC: LAB.WCP 09:08
PROVIDERS: ATTEND Physician Assistant Medical
DX: R74.8 Abnormal levels of other serum enzymes (principal); I48.0 Paroxysmal atrial fibrillation; E78.5 Hyperlipidemia, unspecified; R73.9 Hyperglycemia, unspecified; I25.10 Atherosclerotic heart disease of native coronary artery without angina pectoris
CPT/HCPCS: 36415; 80053; 80061; 83036; 83721; 84443; 85025

== ENCOUNTER 2017-10-21 09:09 | Outpatient (CLI) | payer MEDICARE | END 2017-10-21 09:10 | disposition home or self-care (01) | LOC: LAB.N 09:09 | PROVIDERS: ATTEND Internal Medicine Cardiovascular Disease | DX: I48.91 Unspecified atrial fibrillation (principal); Z79.899 Other long term (current) drug therapy | CPT/HCPCS: 85610 ==

== ENCOUNTER 2017-11-04 08:09 | Outpatient (CLI) | payer MEDICARE | END 2017-11-04 08:10 | disposition home or self-care (01) | LOC: LAB.N 08:09 | PROVIDERS: ATTEND Internal Medicine Cardiovascular Disease | DX: I48.91 Unspecified atrial fibrillation (principal); Z79.899 Other long term (current) drug therapy | CPT/HCPCS: 85610 ==

== ENCOUNTER 2017-12-02 08:53 | Outpatient (CLI) | payer MEDICARE | END 2017-12-02 08:54 | disposition home or self-care (01) | LOC: LAB.N 08:53 | PROVIDERS: ATTEND Internal Medicine Cardiovascular Disease | DX: I48.91 Unspecified atrial fibrillation (principal); Z79.899 Other long term (current) drug therapy | CPT/HCPCS: 85610 ==

== ENCOUNTER 2017-12-12 08:56 | Outpatient (CLI) | payer MEDICARE | END 2017-12-12 08:57 | disposition home or self-care (01) | LOC: LAB.N 08:56 | PROVIDERS: ATTEND Internal Medicine Cardiovascular Disease | DX: I48.91 Unspecified atrial fibrillation (principal); Z79.899 Other long term (current) drug therapy | CPT/HCPCS: 85610 ==

== ENCOUNTER 2018-01-06 08:29 | Outpatient (CLI) | payer MEDICARE | END 2018-01-06 08:30 | disposition home or self-care (01) | LOC: LAB.N 08:29 | PROVIDERS: ATTEND Internal Medicine Cardiovascular Disease | DX: I48.91 Unspecified atrial fibrillation (principal); Z79.899 Other long term (current) drug therapy | CPT/HCPCS: 85610 ==

== ENCOUNTER 2018-02-03 08:00 | Outpatient (CLI) | payer MEDICARE | END 2018-02-03 23:59 | disposition home or self-care (01) | LOC: LAB.N 08:00 | PROVIDERS: ATTEND Internal Medicine Cardiovascular Disease | DX: I48.91 Unspecified atrial fibrillation (principal); Z79.899 Other long term (current) drug therapy | CPT/HCPCS: 85610 ==

== ENCOUNTER 2018-03-06 09:07 | Outpatient (CLI) | payer MEDICARE ==
--- NOTE | 2018-03-06 11:53 | Mammography Report ---
Reason: L BREAST CANCER Procedure Date: 03/06/2018 Accession Number: [id number] / [id number] Procedure: MARY - Diagnostic Dig LT CPT Code: FULL RESULT: EXAM: Diagnostic Dig LT DATE: 03/06/2018 10:18 AM CLINICAL HISTORY: History of bilateral breast cancer, status post right lumpectomy 2002 and left lumpectomy 2017 TECHNIQUE: Unilateral left CC, ML, and MLO projections including tomosynthesis with additional magnification views. COMPARISON: 08/28/2017, 02/20/2017, 08/06/2016, 06/20/2016, 06/11/2016, 04/21/2015 and 03/01/2014 FINDINGS: The breast tissue is heterogeneously dense. Innumerable benign-appearing calcifications are present. Post therapeutic architectural distortion is similar to 08/28/2017. One biopsy clip remains as before. No significant new findings. IMPRESSION: Benign findings RECOMMENDATION: Follow-up bilateral mammography in 6 months, screening on the right and diagnostic on the left. BIRADS CATEGORY 2: Benign findings STANDARD QUALIFYING STATEMENTS: 1. This examination was reviewed with the aid of Computer-Aided Detection (CAD). 2. A negative or benign imaging report should not delay biopsy if clinically suspicious findings are present. Consider surgical consultation if warrented. More than 5% of cancers are not identified by imaging. 3. Dense breasts may obscure an underlying neoplasm.
== END 2018-03-06 09:08 | disposition home or self-care (01) ==
LOC: DI 09:07
PROVIDERS: ATTEND Internal Medicine Hematology & Oncology
DX: C50.912 Malignant neoplasm of unspecified site of left female breast (principal)

== ENCOUNTER 2018-03-10 08:00 | Outpatient (CLI) | payer MEDICARE | END 2018-03-10 23:59 | disposition home or self-care (01) | LOC: LAB.N 08:00 | PROVIDERS: ATTEND Internal Medicine Cardiovascular Disease | DX: I48.91 Unspecified atrial fibrillation (principal); Z79.899 Other long term (current) drug therapy | CPT/HCPCS: 85610 ==

== ENCOUNTER 2018-03-25 08:00 | Outpatient (CLI) | payer MEDICARE | END 2018-03-25 23:59 | disposition home or self-care (01) | LOC: LAB.N 08:00 | PROVIDERS: ATTEND Internal Medicine Cardiovascular Disease | DX: I48.91 Unspecified atrial fibrillation (principal); Z79.899 Other long term (current) drug therapy | CPT/HCPCS: 85610 ==

== ENCOUNTER 2018-04-02 09:40 | Outpatient (CLI) | payer MEDICARE ==
[2018-04-02 14:14] LABS: ALBUMIN 3.5 g/dL (3.2-5.5); ALBUMIN/GLOBULIN RATIO 0.9 (1.0-2.2); ALKALINE PHOSPHATASE 92 IU/L (42-121); ALT ALANINE AMINOTRANSFERASE 33 IU/L (10-60); AST ASPARTATE AMINOTRANSFERASE 69 IU/L (10-42); BILIRUBIN,TOTAL 0.9 mg/dL (0.2-1.0); BUN - BLOOD UREA NITROGEN 16 mg/dL (6-20); CALCIUM 8.5 mg/dL (8.5-10.3); CARBON DIOXIDE - CO2 27 mmol/L (21-32); CHLORIDE 102 mmol/L (101-111); CHOLESTEROL 191 mg/dL; CREATININE 0.4 mg/dL (0.4-1.0); GFR - MDRD 158 (>89); GLUCOSE 125 mg/dL (70-100); HDL CHOLESTEROL 48 mg/dL; LDL CHOLESTEROL,CALCULATED 117 mg/dL; LDL/HDL RATIO 2.4 (<4.4); SODIUM 137 mmol/L (135-145); TOTAL PROTEIN 7.5 g/dL (6.7-8.2); VLDL CHOLESTEROL 26 mg/dL
[2018-04-02 14:21] LABS: HB2 TOTAL 14.3 g/dL; HEMOGLOBIN A1C 0.56 g/dL; HEMOGLOBIN A1C % 5.7 % (4.6-6.2)
== END 2018-04-02 23:59 | disposition home or self-care (01) ==
LOC: LAB.WCP 09:40
PROVIDERS: ATTEND Physician Assistant Medical
DX: E78.5 Hyperlipidemia, unspecified (principal); R73.9 Hyperglycemia, unspecified
CPT/HCPCS: 36415; 80053; 80061; 83036; 83721

== ENCOUNTER 2018-04-08 08:00 | Outpatient (CLI) | payer MEDICARE | END 2018-04-08 23:59 | disposition home or self-care (01) | LOC: LAB.N 08:00 | PROVIDERS: ATTEND Internal Medicine Cardiovascular Disease | DX: I48.91 Unspecified atrial fibrillation (principal); Z79.899 Other long term (current) drug therapy | CPT/HCPCS: 85610 ==

== ENCOUNTER 2018-04-28 08:00 | Outpatient (CLI) | payer MEDICARE | END 2018-04-28 23:59 | disposition home or self-care (01) | LOC: LAB.N 08:00 | PROVIDERS: ATTEND Internal Medicine Cardiovascular Disease | DX: I48.91 Unspecified atrial fibrillation (principal); Z79.899 Other long term (current) drug therapy | CPT/HCPCS: 85610 ==

== ENCOUNTER 2018-05-12 08:00 | Outpatient (CLI) | payer MEDICARE | END 2018-05-12 23:59 | disposition home or self-care (01) | LOC: LAB.N 08:00 | PROVIDERS: ATTEND Internal Medicine Cardiovascular Disease | DX: I48.91 Unspecified atrial fibrillation (principal); Z79.899 Other long term (current) drug therapy | CPT/HCPCS: 85610 ==

== ENCOUNTER 2018-06-08 08:00 | Outpatient (CLI) | payer MEDICARE | END 2018-06-08 23:59 | disposition home or self-care (01) | LOC: LAB.N 08:00 | PROVIDERS: ATTEND Internal Medicine Cardiovascular Disease | DX: I48.91 Unspecified atrial fibrillation (principal); Z79.899 Other long term (current) drug therapy | CPT/HCPCS: 85610 ==

== ENCOUNTER 2018-07-08 08:00 | Outpatient (CLI) | payer MEDICARE | END 2018-07-08 23:59 | disposition home or self-care (01) | LOC: LAB.N 08:00 | PROVIDERS: ATTEND Internal Medicine Cardiovascular Disease | DX: I48.91 Unspecified atrial fibrillation (principal); Z79.899 Other long term (current) drug therapy | CPT/HCPCS: 85610 ==

== ENCOUNTER 2018-07-29 08:00 | Outpatient (CLI) | payer MEDICARE | END 2018-07-29 23:59 | disposition home or self-care (01) | LOC: LAB.N 08:00 | PROVIDERS: ATTEND Internal Medicine Cardiovascular Disease | DX: I48.91 Unspecified atrial fibrillation (principal); Z79.899 Other long term (current) drug therapy | CPT/HCPCS: 85610 ==

== ENCOUNTER 2018-08-18 12:34 | Outpatient (CLI) | payer MEDICARE ==
--- NOTE | 2018-08-18 13:32 | Mammography Report ---
Reason: LT BREAST CA Procedure Date: 08/18/2018 Accession Number: [id number] / [id number] Procedure: MARY - Diagnostic Dig Bilat CPT Code: FULL RESULT: EXAM: Diagnostic Dig Bilat DATE: 08/18/2018 1:08 PM CLINICAL HISTORY: History of bilateral breast cancers, on the right treated with radiation and chemotherapy and on the left with lumpectomy. TECHNIQUE: (B) - Bilateral CC and MLO views were obtained. COMPARISON: 03/06/2018, 08/28/2017, 02/20/2017, 08/06/2016, 06/20/2016, 06/11/2016, 04/21/2015 and 03/01/2014 PARENCHYMAL PATTERN: (D) - The breasts demonstrate heterogeneously dense fibroglandular parenchyma bilaterally. FINDINGS: No significant interval change. Multiple surgical clips right breast and right axilla with architectural distortion and skin thickening consistent with prior treatment. Architectural distortion left breast consistent with prior lumpectomy. Stable biopsy clip left breast. Extensive bilateral benign-appearing calcifications.. There are no new suspicious masses, suspicious calcifications, or new areas of distortion. IMPRESSION: Benign findings. BI-RADS category 2. RECOMMENDATION: (ANNUAL) - Recommend routine annual screening mammography. BI-RADS CATEGORY: (2) - Benign Findings. STANDARD QUALIFYING STATEMENTS: 1. This examination was not reviewed with the aid of Computer-Aided Detection (CAD). 2. A negative or benign imaging report should not preclude biopsy if clinically suspicious findings are present. 3. Dense breasts may obscure an underlying neoplasm. 4. This examination was reviewed with the aid of 3D breast imaging (tomosynthesis).
== END 2018-08-18 12:35 | disposition home or self-care (01) ==
LOC: DI 12:34
PROVIDERS: ATTEND Internal Medicine Hematology & Oncology
DX: C50.912 Malignant neoplasm of unspecified site of left female breast (principal)
CPT/HCPCS: 77066; G0279; 77062

== ENCOUNTER 2018-08-26 08:00 | Outpatient (CLI) | payer MEDICARE | END 2018-08-26 23:59 | disposition home or self-care (01) | LOC: LAB.WCP 08:00 | PROVIDERS: ATTEND Internal Medicine Cardiovascular Disease | DX: I48.91 Unspecified atrial fibrillation (principal); Z79.899 Other long term (current) drug therapy | CPT/HCPCS: 85610 ==

== ENCOUNTER 2018-09-30 08:00 | Outpatient (CLI) | payer MEDICARE | END 2018-09-30 23:59 | disposition home or self-care (01) | LOC: LAB.N 08:00 | PROVIDERS: ATTEND Internal Medicine Cardiovascular Disease | DX: I48.91 Unspecified atrial fibrillation (principal); Z79.899 Other long term (current) drug therapy | CPT/HCPCS: 85610 ==

== ENCOUNTER 2018-10-28 08:00 | Outpatient (CLI) | payer MEDICARE | END 2018-10-28 23:59 | disposition home or self-care (01) | LOC: LAB.N 08:00 | PROVIDERS: ATTEND Internal Medicine Cardiovascular Disease | DX: I48.91 Unspecified atrial fibrillation (principal); Z79.899 Other long term (current) drug therapy | CPT/HCPCS: 85610 ==

== ENCOUNTER 2018-11-11 09:16 | Outpatient (CLI) | payer MEDICARE | END 2018-11-11 23:59 | disposition home or self-care (01) | LOC: LAB.N 09:16 | PROVIDERS: ATTEND Internal Medicine Cardiovascular Disease | DX: I48.91 Unspecified atrial fibrillation (principal); Z79.899 Other long term (current) drug therapy | CPT/HCPCS: 85610 ==

== ENCOUNTER 2018-12-09 08:00 | Outpatient (CLI) | payer MEDICARE ==
[2018-12-09 12:21] LABS: BASOPHILS # (AUTO) 0.1 10^3/uL (0.0-0.1); BASOPHILS % (AUTO) 0.7 %; EOSINOPHILS # (AUTO) 0.1 10^3/uL (0.0-0.7); EOSINOPHILS % (AUTO) 1.5 %; HGB - HEMOGLOBIN 12.5 g/dL (12.0-16.0); LYMPHOCYTES # (AUTO) 1.6 10^3/uL (1.5-3.5); LYMPHOCYTES % (AUTO) 22.1 %; MEAN CORPUSCULAR HEMOGLOBIN 33.4 pg (27.0-31.0); MEAN CORPUSCULAR HGB CONC 32.8 g/dL (32.0-36.0); MEAN CORPUSCULAR VOLUME 101.9 fL (81.0-99.0); MEAN PLATELET VOLUME 10.4 fL (7.9-10.8); MONOCYTES # (AUTO) 0.9 10^3/uL (0.0-1.0); MONOCYTES % (AUTO) 12.5 %; NEUTROPHILS # (AUTO) 4.6 10^3/uL (1.5-6.6); NEUTROPHILS % (AUTO) 62.8 %; PLT - PLATELET COUNT 257 10^3/uL (130-450); RED BLOOD COUNT 3.74 10^6/uL (4.20-5.40); WHITE BLOOD COUNT 7.4 x10^3/uL (4.8-10.8)
== END 2018-12-09 23:59 | disposition home or self-care (01) ==
LOC: LAB.N 08:00
PROVIDERS: ATTEND Internal Medicine Cardiovascular Disease
DX: I48.91 Unspecified atrial fibrillation (principal); Z79.899 Other long term (current) drug therapy; I48.0 Paroxysmal atrial fibrillation; Z51.81 Encounter for therapeutic drug level monitoring; Z79.01 Long term (current) use of anticoagulants
CPT/HCPCS: 36415; 85025; 85610

== ENCOUNTER 2018-12-23 08:00 | Outpatient (CLI) | payer MEDICARE | END 2018-12-23 23:59 | disposition home or self-care (01) | LOC: LAB.N 08:00 | PROVIDERS: ATTEND Internal Medicine Cardiovascular Disease | DX: I48.91 Unspecified atrial fibrillation (principal); Z79.899 Other long term (current) drug therapy | CPT/HCPCS: 85610 ==

== ENCOUNTER 2019-01-04 09:34 | Outpatient (CLI) | payer MEDICARE | END 2019-01-04 23:59 | disposition home or self-care (01) | LOC: LAB.N 09:34 | PROVIDERS: ATTEND Internal Medicine Cardiovascular Disease | DX: I48.91 Unspecified atrial fibrillation (principal); Z79.899 Other long term (current) drug therapy | CPT/HCPCS: 85610 ==

== ENCOUNTER 2019-01-07 12:41 | Outpatient (CLI) | payer MEDICARE ==
--- NOTE | 2019-01-12 08:14 | DEXA Report ---
Reason: OSTEOPENIA Procedure Date: 01/07/2019 Accession Number: [id number] / [id number] Procedure: DEX - Dexa Spine and/or Hip CPT Code: Final Report FULL RESULT: EXAM: Dexa Spine and/or Hip DATE: 01/07/2019 2:52 PM CLINICAL HISTORY: OSTEOPENIA TECHNIQUE: Dual energy x-ray absorptiometry (DXA) was performed on a [employer] System. Regions measured are the AP Spine, femoral neck, and if needed forearm. COMPARISON: 12/09/2016 In accordance with the International Society for Clinical Densitometry (ISCD) guidelines, data from previous exams may be reanalyzed using current recommendations and techniques. This is done to allow a more accurate basis for comparison with the current study. FINDINGS: The data for the lumbar spine is as follows: BMD (g/cm/cm) T-SCORE Z-SCORE REGION L1 1.201 0.6 1.3 L2 1.412 1.8 2.4 L3 1.414 1.8 2.5 L4 1.278 0.6 1.3 TOTAL 1.327 1.2 1.9 NOTE: All evaluable vertebrae are used for classification The data for the hip is as follows: BMD (g/cm/cm) T-SCORE Z-SCORE REGION Neck 0.710 -2.4 -1.3 TOTAL 0.748 -2.1 -1.3 NOTE: The femoral neck or total proximal femur, whichever is lowest, is used for classification. DXA RESULTS SUMMARY: Spine SCAN DATE AGE BMD CHANGE VS CHANGE VS PREVIOUS PREVIOUS % 01[age]07/2019 [age] 1[age]327 0.004 0.3 12/09/2016 [age] 1.323 * Denotes significant change at the 95% confidence level. Denotes dissimilar scan types or analysis methods. DXA RESULTS SUMMARY: Hip SCAN DATE AGE BMD CHANGE VS CHANGE VS PREVIOUS PREVIOUS % [birth year][age]07/2019 [age] 0.748 -0.012 -1.6 12/09/2016 [age] 0.760 * Denotes significant change at the 95% confidence level. Denotes dissimilar scan types or analysis methods. DXA RESULTS SUMMARY: Forearm IMPRESSION: 1. THE WHO CLASSIFICATION BASED ON THE INTERNATIONAL REFERENCE STANDARD IS OSTEOPENIA; REFERENCE HIP RESULTS. THE FRACTURE RISK IS INCREASED. 2. THERE HAS BEEN NO STATISTICALLY SIGNIFICANT CHANGE SINCE THE PRIOR STUDY (12/09/2016). RECOMMENDATION: Patients with diagnosis of osteoporosis or osteopenia should have regular bone mineral density assessment. For those eligible for Medicare, routine testing is allowed once every 2 years. Testing frequency can be increased for patients who have rapidly progressing disease or for those who are receiving medical therapy to restore bone mass. COMMENT: World Health Organization (WHO) definitions for osteoporosis and osteopenia: NORMAL BMD: T-score at -1.0 or higher, fracture risk is low OSTEOPENIA BMD: T-score between -1.0 and -2.5, fracture risk is increased. OSTEOPOROSIS BMD: T-score at -2.5 or lower, fracture risk is high. National Osteoporosis Foundation recommends: 1. Obtain adequate dietary calcium (at least 1200 mg per day) and vitamin D (400-800 international units per day). 2. Participate, as appropriate, in regular weightbearing and muscle-strengthening exercise. 3. Avoid tobacco use and reduce alcohol and caffeine intake. 4. For more detailed information see the website at www.NOF.org.
== END 2019-01-07 12:42 | disposition home or self-care (01) ==
LOC: DI 12:41
PROVIDERS: ATTEND Physician Assistant Medical
DX: M85.88 Other specified disorders of bone density and structure, other site (principal)
CPT/HCPCS: 77080

== ENCOUNTER 2019-01-18 08:55 | Outpatient (CLI) | payer MEDICARE | END 2019-01-18 23:59 | disposition home or self-care (01) | LOC: LAB.N 08:55 | PROVIDERS: ATTEND Internal Medicine Cardiovascular Disease | DX: I48.91 Unspecified atrial fibrillation (principal); Z79.899 Other long term (current) drug therapy | CPT/HCPCS: 85610 ==

== ENCOUNTER 2019-02-01 08:00 | Outpatient (CLI) | payer MEDICARE | END 2019-02-01 23:59 | disposition home or self-care (01) | LOC: LAB.N 08:00 | PROVIDERS: ATTEND Internal Medicine Cardiovascular Disease | DX: I48.91 Unspecified atrial fibrillation (principal); Z79.899 Other long term (current) drug therapy | CPT/HCPCS: 85610 ==

== ENCOUNTER 2019-02-24 08:00 | Outpatient (CLI) | payer MEDICARE | END 2019-02-24 23:59 | disposition home or self-care (01) | LOC: LAB.N 08:00 | PROVIDERS: ATTEND Internal Medicine Cardiovascular Disease | DX: I48.91 Unspecified atrial fibrillation (principal); Z79.899 Other long term (current) drug therapy | CPT/HCPCS: 85610 ==

== ENCOUNTER 2019-03-10 08:00 | Outpatient (CLI) | payer MEDICARE | END 2019-03-10 23:59 | disposition home or self-care (01) | LOC: LAB.N 08:00 | PROVIDERS: ATTEND Internal Medicine Cardiovascular Disease | DX: I48.91 Unspecified atrial fibrillation (principal); Z79.899 Other long term (current) drug therapy | CPT/HCPCS: 85610 ==

== ENCOUNTER 2019-03-24 08:00 | Outpatient (CLI) | payer MEDICARE | END 2019-03-24 23:59 | disposition home or self-care (01) | LOC: LAB.N 08:00 | PROVIDERS: ATTEND Internal Medicine Cardiovascular Disease | DX: I48.91 Unspecified atrial fibrillation (principal); Z79.899 Other long term (current) drug therapy | CPT/HCPCS: 85610 ==

== ENCOUNTER 2019-04-21 10:15 | Outpatient (CLI) | payer MEDICARE | END 2019-04-21 23:59 | disposition home or self-care (01) | LOC: LAB.N 10:15 | PROVIDERS: ATTEND Internal Medicine Cardiovascular Disease | DX: I48.91 Unspecified atrial fibrillation (principal); Z79.899 Other long term (current) drug therapy | CPT/HCPCS: 85610 ==

== ENCOUNTER 2019-05-21 08:00 | Outpatient (CLI) | payer MEDICARE ==
[2019-05-21 12:56] LABS: INR 2.6 (0.8-1.2); PT - PROTHROMBIN TIME 28.3 secs (9.9-12.6)
[2019-05-21 13:24] LABS: BASOPHILS # (AUTO) 0.1 10^3/uL (0.0-0.1); BASOPHILS % (AUTO) 0.6 %; EOSINOPHILS # (AUTO) 0.2 10^3/uL (0.0-0.7); EOSINOPHILS % (AUTO) 1.7 %; HGB - HEMOGLOBIN 12.3 g/dL (12.0-16.0); LYMPHOCYTES # (AUTO) 2.5 10^3/uL (1.5-3.5); LYMPHOCYTES % (AUTO) 24.5 %; MEAN CORPUSCULAR HEMOGLOBIN 34.7 pg (27.0-31.0); MEAN CORPUSCULAR HGB CONC 33.7 g/dL (32.0-36.0); MEAN CORPUSCULAR VOLUME 103.1 fL (81.0-99.0); MEAN PLATELET VOLUME 10.4 fL (7.9-10.8); MONOCYTES # (AUTO) 1.1 10^3/uL (0.0-1.0); MONOCYTES % (AUTO) 11.3 %; NEUTROPHILS # (AUTO) 6.1 10^3/uL (1.5-6.6); NEUTROPHILS % (AUTO) 61.4 %; PLT - PLATELET COUNT 286 10^3/uL (130-450); RED BLOOD COUNT 3.54 10^6/uL (4.20-5.40); RED CELL DISTRIBUTION WIDTH 13.2 % (12.0-15.0)
[2019-05-21 13:39] LABS: ALBUMIN/GLOBULIN RATIO 0.9 (1.0-2.2); ALKALINE PHOSPHATASE 86 IU/L (42-121); ALT ALANINE AMINOTRANSFERASE 18 IU/L (10-60); AST ASPARTATE AMINOTRANSFERASE 50 IU/L (10-42); BUN - BLOOD UREA NITROGEN 18 mg/dL (6-20); CALCIUM 8.1 mg/dL (8.5-10.3); CARBON DIOXIDE - CO2 25 mmol/L (21-32); CHLORIDE 98 mmol/L (101-111); CHOL/HDL RATIO 3.3 (<4.4); CHOLESTEROL 179 mg/dL; CREATININE 1.1 mg/dL (0.4-1.0); GLUCOSE 145 mg/dL (70-100); HDL CHOLESTEROL 55 mg/dL; LDL CHOLESTEROL,CALCULATED 93 mg/dL; LDL/HDL RATIO 1.7 (<4.4); SODIUM 136 mmol/L (135-145); TOTAL PROTEIN 8.4 g/dL (6.7-8.2); VLDL CHOLESTEROL 31 mg/dL
[2019-05-21 13:45] LABS: HB2 TOTAL 12.7 g/dL; HEMOGLOBIN A1C 0.53 g/dL
== END 2019-05-21 23:59 | disposition home or self-care (01) ==
LOC: LAB.WCP 08:00
PROVIDERS: ATTEND Internal Medicine Cardiovascular Disease
DX: I48.91 Unspecified atrial fibrillation (principal); Z79.899 Other long term (current) drug therapy; R74.8 Abnormal levels of other serum enzymes; R73.9 Hyperglycemia, unspecified; I25.10 Atherosclerotic heart disease of native coronary artery without angina pectoris; E78.5 Hyperlipidemia, unspecified
CPT/HCPCS: 36415; 80053; 80061; 83036; 83721; 84443; 85025; 85610

== ENCOUNTER 2019-06-25 09:10 | Outpatient (CLI) | payer MEDICARE ==
[2019-06-25 13:37] LABS: INR 1.9 (0.8-1.2); PT - PROTHROMBIN TIME 20.9 secs (9.9-12.6)
== END 2019-06-25 23:59 | disposition home or self-care (01) ==
LOC: LAB.WCP 09:10
PROVIDERS: ATTEND Internal Medicine Cardiovascular Disease
DX: I48.91 Unspecified atrial fibrillation (principal); Z79.899 Other long term (current) drug therapy
CPT/HCPCS: 36415; 85610

== ENCOUNTER 2019-07-26 08:00 | Outpatient (CLI) | payer MEDICARE ==
[2019-07-26 12:09] LABS: INR 2.6 (0.8-1.2); PT - PROTHROMBIN TIME 28.2 secs (9.9-12.6)
== END 2019-07-26 23:59 | disposition home or self-care (01) ==
LOC: LAB.WCP 08:00
PROVIDERS: ATTEND Internal Medicine Cardiovascular Disease
DX: I48.91 Unspecified atrial fibrillation (principal); Z79.899 Other long term (current) drug therapy
CPT/HCPCS: 36415; 85610

== ENCOUNTER 2019-08-25 08:00 | Outpatient (CLI) | payer MEDICARE ==
[2019-08-25 18:29] LABS: INR 2.9 (0.8-1.2); PT - PROTHROMBIN TIME 31.3 secs (9.9-12.6)
== END 2019-08-25 23:59 | disposition home or self-care (01) ==
LOC: LAB.WCP 08:00
PROVIDERS: ATTEND Internal Medicine Cardiovascular Disease
DX: I48.91 Unspecified atrial fibrillation (principal); Z79.899 Other long term (current) drug therapy
CPT/HCPCS: 36415; 85610

== ENCOUNTER 2019-09-30 16:00 | Outpatient (CLI) | payer MEDICARE ==
[2019-09-30 18:38] LABS: INR 1.7 (0.8-1.2); PT - PROTHROMBIN TIME 18.9 secs (9.9-12.6)
== END 2019-09-30 23:59 | disposition home or self-care (01) ==
LOC: LAB.WCP 16:00
PROVIDERS: ATTEND Internal Medicine Cardiovascular Disease
DX: I48.91 Unspecified atrial fibrillation (principal); Z79.899 Other long term (current) drug therapy
CPT/HCPCS: 36415; 85610

== ENCOUNTER 2019-10-04 09:20 | Outpatient (CLI) | payer MEDICARE ==
--- NOTE | 2019-10-05 08:29 | Mammography Report ---
BILATERAL DIGITAL DIAGNOSTIC MAMMOGRAM 3D/2D: 10/04/2019 CLINICAL: Palpable left breast lump. Comparison is made to exams dated: 08/18/2018 mammogram, 03/06/2018 mammogram, 08/28/2017 mammogram, 03/24 breast MRI, 02/20/2017 mammogram, and 08/06/2016 ultrasound - [facility]. There are scattered fibroglandular elements in both breasts. The right breast has post-operative findings. There is a biopsy site marker on the left breast. The re are benign appearing calcifications in both breasts that are not significantly changed. Post biop sy changes in the left breast. No other significant masses, calcifications, or other findings are seen in either breast. IMPRESSION: INCOMPLETE: NEEDS ADDITIONAL IMAGING EVALUATION There is no abnormality seen in the left breast to correspond with the area of clinical concern and p alpable abnormality indicated by triangular marker in the anterior depth in the lower inner quadrant. A left breast ultrasound is recommended for further evaluation and is scheduled to immediately foll ow this examination. This exam was interpreted at Station ID: [id number]. NOTE: For mammograms, a report in lay terms will be sent to the patient. Approximately 15% of breast malignancies will not be visualized mammographically. In the management of a palpable breast mass, a negative mammogram must not discourage biopsy of a clinically suspicious lesion. Electronically Signed By: Kaleb Ash M.D. aty/:10/04/2019 10:25:11 ACR BI-RADS Category 0: Incomplete 3340F PARENCHYMAL PATTERN: (A) - The breast(s) demonstrate(s) scattered fibroglandular densities. BI-RADS CATEGORY: (0) - 0 Ultrasound [id number] Immediate follow-up LATERALITY: (L)
--- NOTE | 2019-10-05 08:29 | Ultrasound Report ---
LIMITED ULTRASOUND OF LEFT BREAST: 10/04/2019 CLINICAL: Palpable left breast lump. Comparison is made to exams dated: 10/04/2019 mammogram, 08/18/2018 mammogram, 03/06/2018 mammogram, 08/17 mammogram, 03/24/2017 breast MRI, and [facility] Real-time ultrasound of the left breast 10 o'clock region was performed. Matthews scale images of the r eal-time examination were reviewed. No significant abnormalities were seen sonographically in the left breast. IMPRESSION: BENIGN There is no sonographic evidence of malignancy. There is no abnormality seen in the left breast to correspond with the area of clinical concern and p alpable abnormality at 10 o'clock, however, clinical followup is recommended for persistent or worsen ing symptoms and/or development of any clinically suspicious findings. A 1 year screening mammogram is recommended. Findings and recommendations were conveyed to the patient during today's visit. This exam was interpreted at Station ID: [id number]. Electronically Signed By: Kaleb Ash M.D. aty/:10/04/2019 10:35:41 Ultrasound BI-RADS: 2 Benign BI-RADS CATEGORY: (2) - 2 RECOMMENDATION: (ANNUAL) - Recommend routine annual screening mammography. [id number] 1 year screening LATERALITY: (B)
== END 2019-10-04 09:21 | disposition home or self-care (01) ==
LOC: DI 09:20
PROVIDERS: ATTEND Internal Medicine Hematology & Oncology
DX: N63.25 Unspecified lump in the left breast, overlapping quadrants (principal)
CPT/HCPCS: 76642; 77066

== ENCOUNTER 2019-10-15 08:52 | Outpatient (CLI) | payer MEDICARE ==
[2019-10-15 11:53] LABS: INR 2.3 (0.8-1.2); PT - PROTHROMBIN TIME 25.3 secs (9.9-12.6)
== END 2019-10-15 23:59 | disposition home or self-care (01) ==
LOC: LAB.WCP 08:52
PROVIDERS: ATTEND Internal Medicine Cardiovascular Disease
DX: I48.91 Unspecified atrial fibrillation (principal); Z79.899 Other long term (current) drug therapy
CPT/HCPCS: 36415; 85610

== ENCOUNTER 2019-11-08 09:18 | Outpatient (CLI) | payer MEDICARE ==
[2019-11-08 12:22] LABS: INR 2.6 (0.8-1.2); PT - PROTHROMBIN TIME 27.6 secs (9.9-12.6)
== END 2019-11-08 23:59 | disposition home or self-care (01) ==
LOC: LAB.WCP 09:18
PROVIDERS: ATTEND Internal Medicine Cardiovascular Disease
DX: I48.91 Unspecified atrial fibrillation (principal); Z79.899 Other long term (current) drug therapy
CPT/HCPCS: 36415; 85610

== ENCOUNTER 2019-12-07 15:59 | Outpatient (CLI) | payer MEDICARE ==
[2019-12-07 19:20] LABS: INR 3.3 (0.8-1.2); PT - PROTHROMBIN TIME 33.9 secs (9.9-12.6)
== END 2019-12-07 23:59 | disposition home or self-care (01) ==
LOC: LAB.WCP 15:59
PROVIDERS: ATTEND Internal Medicine Cardiovascular Disease
DX: I48.91 Unspecified atrial fibrillation (principal); Z79.899 Other long term (current) drug therapy
CPT/HCPCS: 36415; 85610

== ENCOUNTER 2019-12-23 07:00 | Outpatient (CLI) | payer MEDICARE ==
[2019-12-23 18:50] LABS: INR 3.7 (0.8-1.2); PT - PROTHROMBIN TIME 37.8 secs (9.9-12.6)
== END 2019-12-23 23:59 | disposition home or self-care (01) ==
LOC: LAB.WCP 07:00
PROVIDERS: ATTEND Internal Medicine Cardiovascular Disease
DX: I48.91 Unspecified atrial fibrillation (principal); Z79.899 Other long term (current) drug therapy
CPT/HCPCS: 36415; 85610

== ENCOUNTER 2020-01-06 08:00 | Outpatient (CLI) | payer MEDICARE ==
[2020-01-06 12:07] LABS: INR 3.5 (0.8-1.2); PT - PROTHROMBIN TIME 35.9 secs (9.9-12.6)
== END 2020-01-06 23:59 | disposition home or self-care (01) ==
LOC: LAB.WCP 08:00
PROVIDERS: ATTEND Internal Medicine Cardiovascular Disease
DX: I48.91 Unspecified atrial fibrillation (principal); Z79.899 Other long term (current) drug therapy
CPT/HCPCS: 36415; 85610

== ENCOUNTER 2020-01-20 09:09 | Outpatient (CLI) | payer MEDICARE ==
[2020-01-20 13:45] LABS: INR 2.5 (0.8-1.2); PT - PROTHROMBIN TIME 26.4 secs (9.9-12.6)
== END 2020-01-20 09:10 | disposition home or self-care (01) ==
LOC: LAB.N 09:09
PROVIDERS: ATTEND Internal Medicine Cardiovascular Disease
DX: I48.91 Unspecified atrial fibrillation (principal); Z79.899 Other long term (current) drug therapy
CPT/HCPCS: 36415; 85610

== ENCOUNTER 2020-02-03 09:20 | Outpatient (CLI) | payer MEDICARE ==
[2020-02-03 12:45] LABS: INR 3.1 (0.8-1.2); PT - PROTHROMBIN TIME 32.7 secs (9.9-12.6)
== END 2020-02-03 09:21 | disposition home or self-care (01) ==
LOC: LAB.N 09:20
PROVIDERS: ATTEND Internal Medicine Cardiovascular Disease
DX: I48.91 Unspecified atrial fibrillation (principal); Z79.899 Other long term (current) drug therapy
CPT/HCPCS: 36415; 85610

== ENCOUNTER 2020-02-17 08:00 | Outpatient (CLI) | payer MEDICARE ==
[2020-02-17 13:15] LABS: INR 2.3 (0.8-1.2); PT - PROTHROMBIN TIME 24.8 secs (9.9-12.6)
== END 2020-02-17 08:01 | disposition home or self-care (01) ==
LOC: LAB.N 08:00
PROVIDERS: ATTEND Internal Medicine Cardiovascular Disease
DX: I48.91 Unspecified atrial fibrillation (principal); Z79.899 Other long term (current) drug therapy
CPT/HCPCS: 36415; 85610

== ENCOUNTER 2020-03-03 14:28 | Outpatient (CLI) | payer MEDICARE | END 2020-03-03 14:29 | disposition home or self-care (01) | LOC: LAB 14:28 | PROVIDERS: ATTEND Internal Medicine Cardiovascular Disease | DX: I48.91 Unspecified atrial fibrillation (principal); Z79.899 Other long term (current) drug therapy | CPT/HCPCS: 85610 ==

== ENCOUNTER 2020-03-13 13:15 | Outpatient (CLI) | payer MEDICARE | END 2020-03-13 13:16 | disposition home or self-care (01) | LOC: LAB 13:15 | PROVIDERS: ATTEND Internal Medicine Cardiovascular Disease | DX: I48.91 Unspecified atrial fibrillation (principal); Z79.899 Other long term (current) drug therapy | CPT/HCPCS: 85610 ==

== ENCOUNTER 2020-03-27 09:19 | Outpatient (CLI) | payer MEDICARE | END 2020-03-27 09:20 | disposition home or self-care (01) | LOC: LAB 09:19 | PROVIDERS: ATTEND Internal Medicine Cardiovascular Disease | DX: I48.91 Unspecified atrial fibrillation (principal); Z79.899 Other long term (current) drug therapy | CPT/HCPCS: 85610 ==

== ENCOUNTER 2020-04-10 09:02 | Outpatient (CLI) | payer MEDICARE | END 2020-04-10 09:03 | disposition home or self-care (01) | LOC: LAB 09:02 | PROVIDERS: ATTEND Internal Medicine Cardiovascular Disease | DX: I48.91 Unspecified atrial fibrillation (principal); Z79.899 Other long term (current) drug therapy | CPT/HCPCS: 85610 ==

== ENCOUNTER 2020-04-24 09:39 | Outpatient (CLI) | payer MEDICARE | END 2020-04-24 09:40 | disposition home or self-care (01) | LOC: LAB 09:39 | PROVIDERS: ATTEND Internal Medicine Cardiovascular Disease | DX: I48.91 Unspecified atrial fibrillation (principal); Z51.81 Encounter for therapeutic drug level monitoring; Z79.01 Long term (current) use of anticoagulants; Z79.899 Other long term (current) drug therapy | CPT/HCPCS: 85610 ==

== ENCOUNTER 2020-05-08 09:50 | Outpatient (CLI) | payer MEDICARE | END 2020-05-08 09:51 | disposition home or self-care (01) | LOC: LAB 09:50 | PROVIDERS: ATTEND Internal Medicine Cardiovascular Disease | DX: I48.91 Unspecified atrial fibrillation (principal); Z79.899 Other long term (current) drug therapy | CPT/HCPCS: 85610 ==

== ENCOUNTER 2020-05-22 09:17 | Outpatient (CLI) | payer MEDICARE | END 2020-05-22 09:18 | disposition home or self-care (01) | LOC: LAB 09:17 | PROVIDERS: ATTEND Internal Medicine Cardiovascular Disease | DX: I48.91 Unspecified atrial fibrillation (principal); Z79.899 Other long term (current) drug therapy | CPT/HCPCS: 85610 ==

== ENCOUNTER 2020-06-05 11:58 | Outpatient (CLI) | payer MEDICARE | END 2020-06-05 11:59 | disposition home or self-care (01) | LOC: LAB 11:58 | PROVIDERS: ATTEND Internal Medicine Cardiovascular Disease | DX: I48.91 Unspecified atrial fibrillation (principal); Z79.899 Other long term (current) drug therapy | CPT/HCPCS: 85610 ==

== ENCOUNTER 2020-06-16 08:00 | Outpatient (CLI) | payer MEDICARE ==
[2020-06-16 12:05] LABS: BASOPHILS % (AUTO) 0.7 %; EOSINOPHILS % (AUTO) 14.6 %; HGB - HEMOGLOBIN 11.4 g/dL (12.0-16.0); LYMPHOCYTES % (AUTO) 18.4 %; MEAN CORPUSCULAR HEMOGLOBIN 35.1 pg (27.0-31.0); MEAN CORPUSCULAR HGB CONC 32.6 g/dL (32.0-36.0); MEAN CORPUSCULAR VOLUME 107.7 fL (81.0-99.0); MEAN PLATELET VOLUME 10.2 fL (7.9-10.8); MONOCYTES % (AUTO) 10.9 %; PLT - PLATELET COUNT 258 10^3/uL (130-450); RED BLOOD COUNT 3.25 10^6/uL (4.20-5.40); RED CELL DISTRIBUTION WIDTH 13.2 % (12.0-15.0); WHITE BLOOD COUNT 7.6 x10^3/uL (4.8-10.8)
[2020-06-16 12:08] LABS: ABNORMAL LYMPHS % (MANUAL) 0 %; BAND NEUTROPHILS % (MANUAL) 0 %
[2020-06-16 12:25] LABS: BASOPHILS # (MANUAL) 0.2 10^3/uL (0-0.1); BASOPHILS % (MANUAL) 2 %; EOSINOPHILS # (MANUAL) 0.4 10^3/uL (0-0.7); LYMPHOCYTES # (MANUAL) 1.6 10^3/uL (1.5-3.5); LYMPHOCYTES % (MANUAL) 21 %; MONOCYTES # (MANUAL) 0.5 10^3/uL (0.0-1.0); NEUTROPHILS # (MANUAL) 4.9 10^3/uL (1.5-6.6); RBC MORPHOLOGY (MULTIPLE) 1+ MACROCYTOSIS (NORMAL)
[2020-06-16 12:26] LABS: DIFFERENTIAL COMMENT MANUAL DIFFERENTIAL; PLATELET ESTIMATE, MANUAL NORMAL (130-450,000) (NORMAL); PLATELET MORPHOLOGY NORMAL APPEARANCE (NORMAL)
[2020-06-16 13:03] LABS: ALBUMIN 3.6 g/dL (3.2-5.5); ALBUMIN/GLOBULIN RATIO 0.9 (1.0-2.2); ALKALINE PHOSPHATASE 93 IU/L (42-121); ALT ALANINE AMINOTRANSFERASE 14 IU/L (10-60); AST ASPARTATE AMINOTRANSFERASE 30 IU/L (10-42); BUN - BLOOD UREA NITROGEN 14 mg/dL (6-20); CALCIUM 8.8 mg/dL (8.5-10.3); CARBON DIOXIDE - CO2 25 mmol/L (21-32); CHLORIDE 102 mmol/L (101-111); CHOL/HDL RATIO 2.7 (<4.4); CHOLESTEROL 172 mg/dL; CREATININE 1.2 mg/dL (0.4-1.0); GFR - MDRD 44 (>89); GLUCOSE 128 mg/dL (70-100); HDL CHOLESTEROL 63 mg/dL; LDL CHOLESTEROL,CALCULATED 87 mg/dL; LDL/HDL RATIO 1.4 (<4.4); POTASSIUM 4.2 mmol/L (3.5-5.0); SODIUM 139 mmol/L (135-145); TOTAL PROTEIN 7.7 g/dL (6.7-8.2); TRIGLYCERIDES 109 mg/dL; VLDL CHOLESTEROL 22 mg/dL
[2020-06-16 13:07] LABS: THYROID STIMULATING HORMONE 3.01 uIU/mL (0.34-5.60)
[2020-06-16 13:15] LABS: ESTIMATED AVERAGE GLUCOSE 114 mg/dL (70-100); HEMOGLOBIN A1c% 5.6 % (4.27-6.07)
== END 2020-06-16 23:59 | disposition home or self-care (01) ==
LOC: LAB.WCP 08:00
PROVIDERS: ATTEND Physician Assistant Medical
DX: E78.5 Hyperlipidemia, unspecified (principal); R73.9 Hyperglycemia, unspecified; I48.0 Paroxysmal atrial fibrillation; C50.912 Malignant neoplasm of unspecified site of left female breast; C50.911 Malignant neoplasm of unspecified site of right female breast
CPT/HCPCS: 36415; 80053; 80061; 83036; 83721; 84443; 85025

== ENCOUNTER 2020-06-19 07:00 | Outpatient (CLI) | payer MEDICARE | END 2020-06-19 23:59 | disposition home or self-care (01) | LOC: LAB 07:00 | PROVIDERS: ATTEND Internal Medicine Cardiovascular Disease | DX: I48.91 Unspecified atrial fibrillation (principal); Z79.899 Other long term (current) drug therapy | CPT/HCPCS: 36416; 85610 ==

== ENCOUNTER 2020-07-03 09:27 | Outpatient (CLI) | payer MEDICARE | END 2020-07-03 09:28 | disposition home or self-care (01) | LOC: LAB 09:27 | PROVIDERS: ATTEND Internal Medicine Cardiovascular Disease | DX: I48.91 Unspecified atrial fibrillation (principal); Z79.899 Other long term (current) drug therapy | CPT/HCPCS: 36416; 85610 ==

== ENCOUNTER 2020-07-07 10:58 | Outpatient (CLI) | payer MEDICARE | END 2020-07-07 10:59 | disposition home or self-care (01) | LOC: LAB 10:58 | PROVIDERS: ATTEND Internal Medicine Cardiovascular Disease | DX: I48.91 Unspecified atrial fibrillation (principal); Z79.899 Other long term (current) drug therapy | CPT/HCPCS: 36416; 85610 ==

== ENCOUNTER 2020-07-10 11:38 | Outpatient (CLI) | payer MEDICARE | END 2020-07-10 11:39 | disposition home or self-care (01) | LOC: LAB 11:38 | PROVIDERS: ATTEND Internal Medicine Cardiovascular Disease | DX: I48.91 Unspecified atrial fibrillation (principal); Z79.899 Other long term (current) drug therapy | CPT/HCPCS: 36416; 85610 ==

== ENCOUNTER 2020-07-26 09:02 | Outpatient (CLI) | payer MEDICARE | END 2020-07-26 09:03 | disposition home or self-care (01) | LOC: LAB 09:02 | PROVIDERS: ATTEND Internal Medicine Cardiovascular Disease | DX: I48.91 Unspecified atrial fibrillation (principal); Z79.899 Other long term (current) drug therapy | CPT/HCPCS: 36416; 85610 ==

== ENCOUNTER 2020-08-03 09:12 | Outpatient (CLI) | payer MEDICARE | END 2020-08-03 09:13 | disposition home or self-care (01) | LOC: LAB 09:12 | PROVIDERS: ATTEND Internal Medicine Cardiovascular Disease | DX: I48.91 Unspecified atrial fibrillation (principal); Z79.899 Other long term (current) drug therapy | CPT/HCPCS: 36416; 85610 ==

== ENCOUNTER 2020-08-17 09:22 | Outpatient (CLI) | payer MEDICARE | END 2020-08-17 09:23 | disposition home or self-care (01) | LOC: LAB 09:22 | PROVIDERS: ATTEND Internal Medicine Cardiovascular Disease | DX: I48.91 Unspecified atrial fibrillation (principal); Z79.899 Other long term (current) drug therapy | CPT/HCPCS: 36416; 85610 ==

== ENCOUNTER 2020-09-07 08:52 | Outpatient (CLI) | payer MEDICARE | END 2020-09-07 08:53 | disposition home or self-care (01) | LOC: LAB 08:52 | PROVIDERS: ATTEND Internal Medicine Cardiovascular Disease | DX: I48.91 Unspecified atrial fibrillation (principal); Z79.01 Long term (current) use of anticoagulants | CPT/HCPCS: 36416; 85610 ==

== ENCOUNTER 2020-10-04 09:00 | Outpatient (CLI) | payer MEDICARE | END 2020-10-04 09:01 | disposition home or self-care (01) | LOC: LAB 09:00 | PROVIDERS: ATTEND Internal Medicine Cardiovascular Disease | DX: I48.91 Unspecified atrial fibrillation (principal); Z79.899 Other long term (current) drug therapy | CPT/HCPCS: 36416; 85610 ==

== ENCOUNTER 2020-10-10 11:22 | Outpatient (CLI) | payer MEDICARE ==
--- NOTE | 2020-10-11 12:15 | Mammography Report ---
BILATERAL DIGITAL SCREENING MAMMOGRAM 3D/2D: 10/10/2020 CLINICAL: Routine screening. Personal history of left breast cancer. Routine screening. Personal hist ory of right breast cancer. Comparison is made to exams dated: 10/04/2019 mammogram, 08/18/2018 mammogram, 03/06/2018 mammogram, and 08/28/2017 mammogram - [facility]. The tissue of both breasts is heterogeneously d ense. This may lower the sensitivity of mammography. There is a benign calcification in both breasts. There also are benign post operative findings in th e right breast. Additionally, there is a biopsy clip in the left breast. No significant masses, calcifications, or other findings are seen in either breast. There has been no significant interval change. IMPRESSION: BENIGN There is no mammographic evidence of malignancy. A 1 year screening mammogram is recommended. This exam was interpreted at Station ID: [id number]. NOTE: For mammograms, a report in lay terms will be sent to the patient. Approximately 15% of breast malignancies will not be visualized mammographically. In the management of a palpable breast mass, a negative mammogram must not discourage biopsy of a clinically suspicious lesion. Electronically Signed By: Claudio watters/akila:10/10/2020 15:28:54 ACR BI-RADS Category 2: Benign Finding(s) 3342F PARENCHYMAL PATTERN: (D) - The breast(s) demonstrate(s) heterogeneously dense fibroglandular lucy boucher. BI-RADS CATEGORY: (2) - 2 RECOMMENDATION: (ANNUAL) - Recommend routine annual screening mammography. [id number] 1 year screening LATERALITY: (B)
== END 2020-10-10 11:23 | disposition home or self-care (01) ==
LOC: DI 11:22
PROVIDERS: ATTEND Physician Assistant
DX: Z12.31 Encounter for screening mammogram for malignant neoplasm of breast (principal); Z85.3 Personal history of malignant neoplasm of breast

== ENCOUNTER 2020-11-07 08:27 | Outpatient (CLI) | payer MEDICARE ==
[2020-11-07 08:49] LABS: BASOPHILS % (AUTO) 0.6 %; EOSINOPHILS # (AUTO) 0.1 10^3/uL (0.0-0.7); EOSINOPHILS % (AUTO) 1.3 %; HCT - HEMATOCRIT 35.1 % (37.0-47.0); HGB - HEMOGLOBIN 11.8 g/dL (12.0-16.0); LYMPHOCYTES # (AUTO) 1.2 10^3/uL (1.5-3.5); LYMPHOCYTES % (AUTO) 16.7 %; MEAN CORPUSCULAR HEMOGLOBIN 35.6 pg (27.0-31.0); MEAN CORPUSCULAR HGB CONC 33.6 g/dL (32.0-36.0); MEAN PLATELET VOLUME 9.4 fL (7.9-10.8); MONOCYTES # (AUTO) 0.9 10^3/uL (0.0-1.0); MONOCYTES % (AUTO) 12.5 %; NEUTROPHILS # (AUTO) 4.9 10^3/uL (1.5-6.6); NEUTROPHILS % (AUTO) 68.5 %; PLT - PLATELET COUNT 231 10^3/uL (130-450); RED BLOOD COUNT 3.31 10^6/uL (4.20-5.40); RED CELL DISTRIBUTION WIDTH 13.7 % (12.0-15.0); WHITE BLOOD COUNT 7.1 x10^3/uL (4.8-10.8)
== END 2020-11-07 08:28 | disposition home or self-care (01) ==
LOC: LAB 08:27
PROVIDERS: ATTEND Internal Medicine Cardiovascular Disease
DX: I48.91 Unspecified atrial fibrillation (principal); Z79.899 Other long term (current) drug therapy
CPT/HCPCS: 36415; 85025; 85610

== ENCOUNTER 2020-11-28 09:23 | Outpatient (CLI) | payer MEDICARE | END 2020-11-28 09:24 | disposition home or self-care (01) | LOC: LAB 09:23 | PROVIDERS: ATTEND Internal Medicine Cardiovascular Disease | DX: I48.91 Unspecified atrial fibrillation (principal); Z79.899 Other long term (current) drug therapy | CPT/HCPCS: 36416; 85610 ==

== ENCOUNTER 2020-12-08 08:56 | Outpatient (CLI) | payer MEDICARE | END 2020-12-08 08:57 | disposition home or self-care (01) | LOC: LAB 08:56 | PROVIDERS: ATTEND Internal Medicine Cardiovascular Disease | DX: I48.91 Unspecified atrial fibrillation (principal); Z79.899 Other long term (current) drug therapy | CPT/HCPCS: 36416; 85610 ==

== ENCOUNTER 2020-12-15 09:31 | Outpatient (CLI) | payer MEDICARE | END 2020-12-15 09:32 | disposition home or self-care (01) | LOC: LAB 09:31 | PROVIDERS: ATTEND Internal Medicine Cardiovascular Disease | DX: I48.91 Unspecified atrial fibrillation (principal); Z79.899 Other long term (current) drug therapy | CPT/HCPCS: 36416; 85610 ==

== ENCOUNTER 2020-12-22 09:35 | Outpatient (CLI) | payer MEDICARE ==
[2020-12-22 13:26] LABS: BASOPHILS # (AUTO) 0.1 10^3/uL (0.0-0.1); BASOPHILS % (AUTO) 0.6 %; EOSINOPHILS # (AUTO) 0.1 10^3/uL (0.0-0.7); EOSINOPHILS % (AUTO) 1.2 %; HCT - HEMATOCRIT 36.9 % (37.0-47.0); HGB - HEMOGLOBIN 12.3 g/dL (12.0-16.0); LYMPHOCYTES # (AUTO) 1.7 10^3/uL (1.5-3.5); LYMPHOCYTES % (AUTO) 19.7 %; MEAN CORPUSCULAR HGB CONC 33.3 g/dL (32.0-36.0); MEAN CORPUSCULAR VOLUME 107.9 fL (81.0-99.0); MEAN PLATELET VOLUME 9.7 fL (7.9-10.8); MONOCYTES # (AUTO) 1.1 10^3/uL (0.0-1.0); NEUTROPHILS # (AUTO) 5.5 10^3/uL (1.5-6.6); NEUTROPHILS % (AUTO) 65.1 %; PLT - PLATELET COUNT 295 10^3/uL (130-450); RED BLOOD COUNT 3.42 10^6/uL (4.20-5.40); WHITE BLOOD COUNT 8.5 x10^3/uL (4.8-10.8)
[2020-12-22 14:16] LABS: CREATININE 0.9 mg/dL (0.4-1.0); POTASSIUM 4.5 mmol/L (3.5-5.0)
== END 2020-12-22 23:59 | disposition home or self-care (01) ==
LOC: LAB.WCP 09:35
PROVIDERS: ATTEND Physician Assistant Medical
DX: N18.9 Chronic kidney disease, unspecified (principal); D64.9 Anemia, unspecified
CPT/HCPCS: 36415; 80048; 85025

== ENCOUNTER 2020-12-28 13:41 | Outpatient (CLI) | payer MEDICARE ==
[2020-12-28 18:46] LABS: ESTIMATED AVERAGE GLUCOSE 114 mg/dL (70-100); HEMOGLOBIN A1c% 5.6 % (4.27-6.07)
== END 2020-12-28 23:59 | disposition home or self-care (01) ==
LOC: LAB.WCP 13:41
PROVIDERS: ATTEND Physician Assistant Medical
DX: E83.42 Hypomagnesemia (principal); R73.9 Hyperglycemia, unspecified
CPT/HCPCS: 36415; 83036; 83735

== ENCOUNTER 2021-01-04 09:28 | Outpatient (CLI) | payer MEDICARE | END 2021-01-04 09:29 | disposition home or self-care (01) | LOC: LAB 09:28 | PROVIDERS: ATTEND Internal Medicine Cardiovascular Disease | DX: I48.91 Unspecified atrial fibrillation (principal); Z79.899 Other long term (current) drug therapy | CPT/HCPCS: 36416; 85610 ==

== ENCOUNTER 2021-01-31 10:14 | Outpatient (CLI) | payer MEDICARE | END 2021-01-31 10:15 | disposition home or self-care (01) | LOC: LAB 10:14 | PROVIDERS: ATTEND Internal Medicine Cardiovascular Disease | DX: I48.91 Unspecified atrial fibrillation (principal); Z79.899 Other long term (current) drug therapy | CPT/HCPCS: 36416; 85610 ==

== ENCOUNTER 2021-02-28 09:53 | Outpatient (CLI) | payer MEDICARE | END 2021-02-28 09:54 | disposition home or self-care (01) | LOC: LAB 09:53 | PROVIDERS: ATTEND Internal Medicine Cardiovascular Disease | DX: I48.91 Unspecified atrial fibrillation (principal); Z79.899 Other long term (current) drug therapy | CPT/HCPCS: 36416; 85610 ==

== ENCOUNTER 2021-03-14 09:41 | Outpatient (CLI) | payer MEDICARE | END 2021-03-14 09:42 | disposition home or self-care (01) | LOC: LAB.N 09:41 | PROVIDERS: ATTEND Internal Medicine Cardiovascular Disease | DX: I48.91 Unspecified atrial fibrillation (principal); Z79.899 Other long term (current) drug therapy | CPT/HCPCS: 36416; 85610 ==

== ENCOUNTER 2021-03-19 09:43 | Outpatient (CLI) | payer MEDICARE | END 2021-03-19 09:44 | disposition home or self-care (01) | LOC: LAB 09:43 | PROVIDERS: ATTEND Internal Medicine Cardiovascular Disease | DX: I48.91 Unspecified atrial fibrillation (principal); Z79.899 Other long term (current) drug therapy | CPT/HCPCS: 36416; 85610 ==

== ENCOUNTER 2021-03-21 09:23 | Outpatient (CLI) | payer MEDICARE | END 2021-03-21 09:24 | disposition home or self-care (01) | LOC: LAB 09:23 | PROVIDERS: ATTEND Internal Medicine Cardiovascular Disease | DX: I48.91 Unspecified atrial fibrillation (principal); Z79.899 Other long term (current) drug therapy | CPT/HCPCS: 36416; 85610 ==

== ENCOUNTER 2021-03-23 10:23 | Outpatient (CLI) | payer MEDICARE | END 2021-03-23 10:24 | disposition home or self-care (01) | LOC: LAB 10:23 | PROVIDERS: ATTEND Internal Medicine Cardiovascular Disease | DX: I48.91 Unspecified atrial fibrillation (principal); Z79.899 Other long term (current) drug therapy | CPT/HCPCS: 36416; 85610 ==

== ENCOUNTER 2021-03-26 09:24 | Outpatient (CLI) | payer MEDICARE | END 2021-03-26 09:25 | disposition home or self-care (01) | LOC: LAB 09:24 | PROVIDERS: ATTEND Internal Medicine Cardiovascular Disease | DX: I48.91 Unspecified atrial fibrillation (principal); Z79.899 Other long term (current) drug therapy | CPT/HCPCS: 36416; 85610 ==

== ENCOUNTER 2021-04-04 10:47 | Outpatient (CLI) | payer MEDICARE | END 2021-04-04 10:48 | disposition home or self-care (01) | LOC: LAB 10:47 | PROVIDERS: ATTEND Internal Medicine Cardiovascular Disease | DX: I48.91 Unspecified atrial fibrillation (principal); Z79.899 Other long term (current) drug therapy | CPT/HCPCS: 36416; 85610 ==

== ENCOUNTER 2021-04-10 13:57 | Outpatient (CLI) | payer MEDICARE ==
--- NOTE | 2021-04-10 16:42 | DEXA Report ---
PROCEDURE: Dexa Spine and/or Hip INDICATIONS: OSTEOPOROSIS TECHNIQUE: Dual energy x-ray absorptiometry (DXA) was performed on a [employer] System. Regions measur ed are the AP Spine, femoral neck, and if needed forearm. COMPARISON: 01/07/2019 FINDINGS: Lumbar Spine: Bone Mineral Density 1.384 g/cm/cm,T score 1.7, normal bone density Left Hip: Bone Mineral Density 0.756 g/cm/cm,T score -2.0, osteopenia Left Femoral Neck: Bone Mineral Density 0.760 g/cm/cm, T score -2.0, osteopenia (T score greater or equal to -1.0: NORMAL) (T score from -1.1 to -2.4: OSTEOPENIA) (T score less than or equal to -2.5 to: OSTEOPOROSIS) Impression: OSTEOPENIA. Patient is at increased risk for fracture. Patients with diagnosis of osteoporosis or osteopenia should have regular bone mineral density assess ment. For those eligible for Medicare, routine testing is allowed once every 2 years. Testing frequ ency can be increased for patients who have rapidly progressing disease or for those who are receivin g medical therapy to restore bone mass. Reviewed by: Kaleb Ash MD on 04/10/2021 4:40 PM PST Approved by: Kaleb Ash MD on 04/10/2021 4:40 PM PST Station ID: [id number]
== END 2021-04-10 13:58 | disposition home or self-care (01) ==
LOC: DI 13:57
PROVIDERS: ATTEND Physician Assistant
DX: M85.89 Other specified disorders of bone density and structure, multiple sites (principal); Z79.811 Long term (current) use of aromatase inhibitors; Z92.3 Personal history of irradiation

== ENCOUNTER 2021-04-19 08:46 | Outpatient (CLI) | payer MEDICARE | END 2021-04-19 08:47 | disposition home or self-care (01) | LOC: LAB 08:46 | PROVIDERS: ATTEND Internal Medicine Cardiovascular Disease | DX: I48.91 Unspecified atrial fibrillation (principal); Z79.899 Other long term (current) drug therapy | CPT/HCPCS: 36416; 85610 ==

== ENCOUNTER 2021-04-26 08:45 | Outpatient (CLI) | payer MEDICARE | END 2021-04-26 08:46 | disposition home or self-care (01) | LOC: LAB 08:45 | PROVIDERS: ATTEND Internal Medicine Cardiovascular Disease | DX: I48.91 Unspecified atrial fibrillation (principal); Z79.899 Other long term (current) drug therapy | CPT/HCPCS: 36416; 85610 ==

== ENCOUNTER 2021-05-10 10:02 | Outpatient (CLI) | payer MEDICARE | END 2021-05-10 10:03 | disposition home or self-care (01) | LOC: LAB 10:02 | PROVIDERS: ATTEND Internal Medicine Cardiovascular Disease | DX: I48.91 Unspecified atrial fibrillation (principal); Z79.899 Other long term (current) drug therapy | CPT/HCPCS: 36416; 85610 ==

== ENCOUNTER 2021-05-23 08:36 | Outpatient (CLI) | payer MEDICARE ==
[2021-05-23 08:48] LABS: HCT - HEMATOCRIT 35.5 % (37.0-47.0); HGB - HEMOGLOBIN 11.9 g/dL (12.0-16.0); MEAN CORPUSCULAR HEMOGLOBIN 34.5 pg (27.0-31.0); MEAN CORPUSCULAR HGB CONC 33.5 g/dL (32.0-36.0); MEAN CORPUSCULAR VOLUME 102.9 fL (81.0-99.0); MEAN PLATELET VOLUME 9.9 fL (7.9-10.8); RED BLOOD COUNT 3.45 10^6/uL (4.20-5.40); RED CELL DISTRIBUTION WIDTH 13.2 % (12.0-15.0); WHITE BLOOD COUNT 8.6 x10^3/uL (4.8-10.8)
[2021-05-23 09:07] LABS: BUN - BLOOD UREA NITROGEN 12 mg/dL (6-20); CALCIUM 8.8 mg/dL (8.5-10.3); CARBON DIOXIDE - CO2 25 mmol/L (21-32); CHLORIDE 102 mmol/L (101-111); CHOL/HDL RATIO 2.2 (<4.4); CHOLESTEROL 181 mg/dL; CREATININE 1.1 mg/dL (0.4-1.0); GFR - MDRD 49 (>89); GLUCOSE 113 mg/dL (70-100); HDL CHOLESTEROL 82 mg/dL; LDL CHOLESTEROL,CALCULATED 80 mg/dL; POTASSIUM 4.4 mmol/L (3.5-5.0); SODIUM 137 mmol/L (135-145); TRIGLYCERIDES 93 mg/dL; VLDL CHOLESTEROL 19 mg/dL
== END 2021-05-23 08:37 | disposition home or self-care (01) ==
LOC: LAB 08:36
PROVIDERS: ATTEND Internal Medicine Cardiovascular Disease
DX: I10 Essential (primary) hypertension (principal); I48.0 Paroxysmal atrial fibrillation; I25.2 Old myocardial infarction
CPT/HCPCS: 36415; 80048; 80061; 83721; 85027

== ENCOUNTER 2021-06-08 08:18 | Outpatient (CLI) | payer MEDICARE | END 2021-06-08 08:19 | disposition home or self-care (01) | LOC: LAB 08:18 | PROVIDERS: ATTEND Internal Medicine Cardiovascular Disease | DX: I48.91 Unspecified atrial fibrillation (principal); Z79.899 Other long term (current) drug therapy | CPT/HCPCS: 36416; 85610 ==

== ENCOUNTER 2021-06-28 08:56 | Outpatient (CLI) | payer MEDICARE | END 2021-06-28 08:57 | disposition home or self-care (01) | LOC: LAB 08:56 | PROVIDERS: ATTEND Internal Medicine Cardiovascular Disease | DX: I48.91 Unspecified atrial fibrillation (principal); Z79.899 Other long term (current) drug therapy | CPT/HCPCS: 36416; 85610 ==

== ENCOUNTER 2021-07-06 08:23 | Outpatient (CLI) | payer MEDICARE ==
--- NOTE | 2021-07-06 14:10 | Nuclear Medicine Report ---
PROCEDURE: Bone Whole Body INDICATIONS: BREAST CA RADIOPHARMACEUTICAL: 25.3 mCi Tc-99m MDP IV. TECHNIQUE: Delayed whole-body scintigrams were obtained approximately 3-4 hours after intravenous injection of r adiotracer. Anterior and posterior views were acquired from vertex to feet. Additional left and rig ht oblique views of the calvarium were obtained. COMPARISON: CT chest 06/25/2021. FINDINGS: Linear increased radiotracer uptake identified in the medial aspect of the left clavicle i n the region of left clavicle fracture. Increased radiotracer uptake identified in the right shoulder corresponds to severe osteophytic degenerative changes identified by prior CT scan. Increased radiot racer uptake identified in the bilateral ribs at the site of multiple rib fractures. No areas of phot openia identified in the osseous skeleton. No abnormal soft tissue uptake identified. Activity in the kidneys is normal and symmetric. IMPRESSION: 1. No scintigraphic evidence of osseous metastatic disease. 2. Left clavicle and bilateral rib fractures. Reviewed by: Nely Trejo MD, PhD on 07/06/2021 2:09 PM PDT Approved by: Nely Trejo MD, PhD on 07/06/2021 2:09 PM PDT Station ID: [id number]
== END 2021-07-06 08:24 | disposition home or self-care (01) ==
LOC: DI 08:23
PROVIDERS: ATTEND Internal Medicine Hematology & Oncology
DX: C50.912 Malignant neoplasm of unspecified site of left female breast (principal); R63.4 Abnormal weight loss; S42.002A Fracture of unspecified part of left clavicle, initial encounter for closed fracture; S22.32XA Fracture of one rib, left side, initial encounter for closed fracture; S22.31XA Fracture of one rib, right side, initial encounter for closed fracture
CPT/HCPCS: 78306

== ENCOUNTER 2021-07-12 09:46 | Outpatient (CLI) | payer MEDICARE ==
--- NOTE | 2021-07-12 11:13 | CARDIAC PROCEDURE NOTE ---
Stress Test Report Service Date: 07/12/21 Service Time: 10:30 Ordering Provider: Michael Staton Indication for Test: Assess for evidence of recurrent inducible ischemia in patient with known CAD. Significant Medical History: Nora is referred for a walking Lexiscan stress myocardial perfusion imaging study today, to re-assess for inducible ischemia in the setting of known longstanding coronary artery disease and what she reports as chronic atrial fibrillation (on warfarin). She was a regular smoker when in 1996 she experienced severe heartburn that ultimately proved due to an acute PA, for which left circumflex PCI was performed. However she did not discontinue smoking at that time and approximately 8 months later had another event, on this occasion without target vessel for PCI. Subsequently she discontinued smoking and has not had recurrent heartburnlike angina since. However she describes a significant decrease in activity tolerance over the past year with a decreasing threshold for exertional dyspnea. She denies associated lightheadedness, palpitations or resting dyspnea. There is a separate issue of significant weight loss, for which she remains under active work-up by her care team that consists of her oncologist, Dr. Michael King and PCP, SHANE Gregg. Cardiac Risk Factors: Known CAD, s/p PA x2 with PCI to LCx; she has a history of hypertension and family history of coronary heart disease in her mother and maternal grandfather; no known history of diabetes or hyperlipidemia. She has a remote smoking history but discontinued approximately 21 years ago. Type of Stress Test: Pharmacologic Stress Test with MPI Pharmacologic Agent: Lexiscan Procedure: -Pharmacologic Stress Test- After signing informed consent, the patient underwent rest SPECT imaging and then performed a walking Lexiscan pharmacologic stress test. After obtaining resting vital signs and EKG (resting), the patient walked for 2 minutes (without elevation) at 0.8 mph ("baseline") followed by injection of Lexiscan and high dose 99Tc-Myoview with an additional 2 minutes of walking ("peak" reassessment) followed by monitoring for an additional 4 minutes ("recovery"). The test was terminated due to completing the protocol. Resting HR: 113 Baseline HR: 158 Peak HR: 176 Abnormal HR response. Note: patient in atrial fibrillation and omitted taking her AM metoprolol and diltiazem; also, precision of estimated HRs was limited by severe baseline artifact. Resting BP: 124/80 Baseline BP: 107/77 Peak BP: 108/74 ABNORMAL hypotensive BP response to baseline walking, with no change following Lexiscan administration. Rhythm during testing: Atrial fibrillation throughout with rare premature ventricular or aberrantly conducted QRS complexes. Symptoms: Following Lexiscan injection there was a marked increase in dyspnea and fatigue beyond that associated with baseline walking. No "heartburn" or chest discomfort reported. EKG at rest showed atrial fibrillation with incomplete left bundle branch block QRS morphologies. EKG at peak stress showed no ischemia by EKG criteria. In Recovery HR returned to resting level; BP increased sequentially with final reading (151/81) highest recorded during the study. Nuclear imaging was performed at rest and with stress. Formal image interpretat ion will be reported separately. ISteven MD, was present throughout this walking Lexiscan stress study and supervised it in its entirety. Summary: 1) Abnormal resting EKG. 2) Adequate stress was likely achieved. 3) Abnormal hypotensive BP response to walking with no change following administration of Lexiscan. 4) No ischemic changes by EKG criteria were seen at peak stress. 5) Analysis of gated nuclear images reveals normal left ventricular size and systolic function, but with dyskinesis of the septum; SPECT analysis reveals a large, primarily fixed defect of the anterior septum consistent with prior infarct, with only minimal periscar ischemia. Increase tracer uptake in the lungs compared with the heart is noted, an additional adverse predictor. See separate report for more detail. CONCLUSIONS: 1) Abnormal BP response to slow walking, with supercompensatory increase in Recovery. 2) Large anteroseptal infarct present, with associated dyskinesis but only minimal ischemia. Increased lung uptake of tracer is an additional adverse predictor.
[2021-07-12] MEDS ORDERED: REGADENOSON 0.4 MG/5 ML SYRINGE IVP ONE ×2 (11:52→13:43)
--- NOTE | 2021-07-12 15:12 | Nuclear Medicine Report ---
PROCEDURE: Rest and pharmacological stress myocardial perfusion SPECT with gated imaging and ejection fraction INDICATIONS: AFIB RADIOPHARMACEUTICAL: 12.8 mCi Tc-99m Myoview IV at rest and 39.7 mCi Tc-99m Myoview IV at peak exerc ise. [id number] was performed. TECHNIQUE: Radiopharmaceutical was injected at peak stress test, and also at rest. SPECT images wer e obtained. SPECT myocardial perfusion images were displayed in short axis, horizontal long axis, an d vertical long axis views. Gated images were reviewed using Auto[employer] software. COMPARISON: None available. FINDINGS: Raw data: There is good myocardial labeling by radiotracer. No significant motion artifacts. Lung- to-heart ratio (LHR) is 0.55 (normal is less than 0.46 for tetrafosmin tracer). Left ventricle function: Gated images demonstrate normal left ventricle wall thickening. There is se ptal dyskinesia. No transient ischemic dilation; TID is 0.73 (normal less than 1.30). The left ventr icle end-diastolic volume is normal. Left ventricle stress ejection fraction is 49%; normal values a re above 45%. Myocardial perfusion: There is a large, severe, fixed perfusion defect in the anterior septum consis tent with myocardial infarct. There is minimal reversibility in the septum. IMPRESSION: Abnormal myocardial perfusion images. 1. There is a large, severe, fixed perfusion defect in the anterior septum, consistent with myocardia l infarction. There is minimal gianluca-infarct ischemia in the infarcted territory. 2. Normal left ventricular volume and low normal left ventricular ejection fraction. There is septal dyskinesia. 3. There is elevated LHR which is an independent predictor for adverse cardiac event. 4. Please correlate with stress EKG result. PQRS ATTESTATIONS: Measure 322 - Is this imaging test primarily performed on a low-risk surgery patient for preoperative evaluation within 30 days preceding their low-risk non-cardiac surgery? Low-risk surgery is defined as cardiac or myocardial infarction less than 1%, including (but not limited to) endoscopic pr ocedures, superficial procedures, cataract surgery, and excisional breast surgery: Answer: No Measure 323 - Is this imaging test performed primarily for the monitoring of an asymptomatic patient who had percutaneous coronary intervention on the visit date or within 2 years of the visit date? An swer: No Measure 324 - Is this imaging test performed primarily for the initial detection and risk assessment on an asymptomatic, low coronary heart disease patient? Low CHD risk definition = clinicians should consider the maximum number of available patient factors used to estimate risk based on [place] (A TP III criteria), typically age, gender, diabetes, smoking status, and use of blood pressure medicati on, and integrate age appropriate estimates for missing elements, such as LDL or standard blood press ure. Answer: No Reviewed by: Svetlana Modi MD on 07/12/2021 3:10 PM PDT Approved by: Svetlana Mdoi MD on 07/12/2021 3:10 PM PDT Station ID: [id number]
== END 2021-07-12 09:47 | disposition home or self-care (01) ==
LOC: DI 09:46
PROVIDERS: ATTEND Internal Medicine Cardiovascular Disease
DX: I25.9 Chronic ischemic heart disease, unspecified (principal); R94.31 Abnormal electrocardiogram [ECG] [EKG]; I25.10 Atherosclerotic heart disease of native coronary artery without angina pectoris; I48.91 Unspecified atrial fibrillation; I10 Essential (primary) hypertension; Z82.49 Family history of ischemic heart disease and other diseases of the circulatory system; Z87.891 Personal history of nicotine dependence; Z79.899 Other long term (current) drug therapy
CPT/HCPCS: 36416; 78452; 85610; 93017; A9500; J2785

== ENCOUNTER 2021-08-01 09:26 | Outpatient (CLI) | payer MEDICARE ==
[2021-08-01 10:09] LABS: ALBUMIN 3.6 g/dL (3.2-5.5); BILIRUBIN,DIRECT 0.1 mg/dL (0.1-0.5); BILIRUBIN,TOTAL 0.7 mg/dL (0.2-1.0)
== END 2021-08-01 09:27 | disposition home or self-care (01) ==
LOC: LAB 09:26
PROVIDERS: ATTEND Internal Medicine Cardiovascular Disease
DX: I48.91 Unspecified atrial fibrillation (principal); Z79.899 Other long term (current) drug therapy; R19.7 Diarrhea, unspecified; R79.89 Other specified abnormal findings of blood chemistry
CPT/HCPCS: 36415; 80076; 82977; 83690; 85610

== ENCOUNTER 2021-09-05 08:12 | Outpatient (CLI) | payer MEDICARE ==
[2021-09-05 08:48] LABS: ALBUMIN 3.7 g/dL (3.2-5.5); ALKALINE PHOSPHATASE 87 IU/L (42-121); ALT ALANINE AMINOTRANSFERASE 17 IU/L (10-60); AST ASPARTATE AMINOTRANSFERASE 33 IU/L (10-42); BILIRUBIN,TOTAL 0.6 mg/dL (0.2-1.0); BUN - BLOOD UREA NITROGEN 15 mg/dL (6-20); CALCIUM 8.7 mg/dL (8.5-10.3); CARBON DIOXIDE - CO2 24 mmol/L (21-32); CHLORIDE 105 mmol/L (101-111); CHOL/HDL RATIO 2.1 (<4.4); CHOLESTEROL 181 mg/dL; GFR - MDRD 54 (>89); GLUCOSE 124 mg/dL (70-100); HDL CHOLESTEROL 85 mg/dL; LDL CHOLESTEROL,CALCULATED 80 mg/dL; LDL/HDL RATIO 0.9 (<4.4); POTASSIUM 4.2 mmol/L (3.5-5.0); SODIUM 138 mmol/L (135-145); TOTAL PROTEIN 7.5 g/dL (6.7-8.2); TRIGLYCERIDES 81 mg/dL; VLDL CHOLESTEROL 16 mg/dL
[2021-09-05 14:24] LABS: ESTIMATED AVERAGE GLUCOSE 105 mg/dL (70-100); HEMOGLOBIN A1c% 5.3 % (4.27-6.07)
== END 2021-09-05 08:13 | disposition home or self-care (01) ==
LOC: LAB 08:12
PROVIDERS: ATTEND Internal Medicine Cardiovascular Disease
DX: E78.5 Hyperlipidemia, unspecified (principal); I48.91 Unspecified atrial fibrillation; Z79.899 Other long term (current) drug therapy; N18.9 Chronic kidney disease, unspecified; R73.9 Hyperglycemia, unspecified; E83.42 Hypomagnesemia
CPT/HCPCS: 36415; 36416; 80053; 80061; 83036; 83721; 83735; 85610

== ENCOUNTER 2021-09-17 13:25 | Outpatient (CLI) | payer MEDICARE | END 2021-09-17 13:26 | disposition home or self-care (01) | LOC: LAB.N 13:25 | PROVIDERS: ATTEND Physician Assistant Medical | DX: E83.42 Hypomagnesemia (principal) | CPT/HCPCS: 36415; 83735 ==

== ENCOUNTER 2021-10-24 08:00 | Outpatient (CLI) | payer MEDICARE | END 2021-10-24 23:59 | disposition home or self-care (01) | LOC: LAB 08:00 | PROVIDERS: ATTEND Internal Medicine Cardiovascular Disease | DX: I48.91 Unspecified atrial fibrillation (principal); Z79.899 Other long term (current) drug therapy | CPT/HCPCS: 36416; 85610 ==

== ENCOUNTER 2021-10-26 11:07 | Outpatient (CLI) | payer MEDICARE ==
--- NOTE | 2021-10-29 10:41 | Mammography Report ---
BILATERAL DIGITAL SCREENING MAMMOGRAM 3D/2D: 10/26/2021 CLINICAL: Routine screening. Personal history of bilateral breast cancer. Comparison is made to exams dated: 10/10/2020 mammogram, 10/04/2019 mammogram, 08/18/2018 mammogram, 02/17 mammogram, 08/28/2017 mammogram, and 02/20/2017 mammogram - [facility]. Both breasts are heterogeneously dense, which may obscure small masses (category c / 51-75% glandula r tissue). There is a benign calcification in both breasts. There also are benign vascular calcifications in petar th breasts. Additionally, there are benign post operative findings in the right breast. Additionall y, there also is a biopsy clip in the left breast. No significant masses, calcifications, or other findings are seen in either breast. There has been no significant interval change. IMPRESSION: BENIGN There is no mammographic evidence of malignancy. A 1 year screening mammogram is recommended. This exam was interpreted at Station ID: [id number]. NOTE: For mammograms, a report in lay terms will be sent to the patient. Approximately 15% of breast malignancies will not be visualized mammographically. In the management of a palpable breast mass, a negative mammogram must not discourage biopsy of a clinically suspicious lesion. Electronically Signed By: Jl Rodriges acr/penrad:10/26/2021 15:22:12 ACR BI-RADS Category 2: Benign Finding(s) 3342F PARENCHYMAL PATTERN: (D) - The breast(s) demonstrate(s) heterogeneously dense fibroglandular lucy bocuher. BI-RADS CATEGORY: (2) - 2 RECOMMENDATION: (ANNUAL) - Recommend routine annual screening mammography. [id number] 1 year screening LATERALITY: (B)
== END 2021-10-26 11:08 | disposition home or self-care (01) ==
LOC: DI 11:07
PROVIDERS: ATTEND Internal Medicine Hematology & Oncology
DX: Z12.31 Encounter for screening mammogram for malignant neoplasm of breast (principal); Z85.3 Personal history of malignant neoplasm of breast

== ENCOUNTER 2021-11-07 08:42 | Outpatient (CLI) | payer MEDICARE | END 2021-11-07 08:43 | disposition home or self-care (01) | LOC: LAB 08:42 | PROVIDERS: ATTEND Internal Medicine Cardiovascular Disease | DX: I48.91 Unspecified atrial fibrillation (principal); Z79.899 Other long term (current) drug therapy | CPT/HCPCS: 36416; 85610 ==

== ENCOUNTER 2021-11-21 10:01 | Outpatient (CLI) | payer MEDICARE | END 2021-11-21 10:02 | disposition home or self-care (01) | LOC: LAB 10:01 | PROVIDERS: ATTEND Internal Medicine Cardiovascular Disease | DX: I48.91 Unspecified atrial fibrillation (principal); Z79.899 Other long term (current) drug therapy | CPT/HCPCS: 36416; 85610 ==

== ENCOUNTER 2021-12-07 11:27 | Outpatient (CLI) | payer MEDICARE | END 2021-12-07 11:28 | disposition home or self-care (01) | LOC: LAB 11:27 | PROVIDERS: ATTEND Physician Assistant Medical | DX: E83.42 Hypomagnesemia (principal) | CPT/HCPCS: 36415; 83735 ==

== ENCOUNTER 2021-12-17 09:20 | Outpatient (CLI) | payer MEDICARE | END 2021-12-17 09:21 | disposition home or self-care (01) | LOC: LAB 09:20 | PROVIDERS: ATTEND Internal Medicine Cardiovascular Disease | DX: I48.91 Unspecified atrial fibrillation (principal); Z79.899 Other long term (current) drug therapy | CPT/HCPCS: 36416; 85610 ==

== ENCOUNTER 2021-12-24 09:01 | Outpatient (CLI) | payer MEDICARE | END 2021-12-24 09:02 | disposition home or self-care (01) | LOC: LAB 09:01 | PROVIDERS: ATTEND Internal Medicine Cardiovascular Disease | DX: I48.91 Unspecified atrial fibrillation (principal); Z79.899 Other long term (current) drug therapy | CPT/HCPCS: 36416; 85610 ==

== ENCOUNTER 2021-12-31 09:23 | Outpatient (CLI) | payer MEDICARE | END 2021-12-31 09:24 | disposition home or self-care (01) | LOC: LAB 09:23 | PROVIDERS: ATTEND Internal Medicine Cardiovascular Disease | DX: I48.91 Unspecified atrial fibrillation (principal); Z79.899 Other long term (current) drug therapy | CPT/HCPCS: 36416; 85610 ==

== ENCOUNTER 2022-01-09 09:26 | Outpatient (CLI) | payer MEDICARE | END 2022-01-09 09:27 | disposition home or self-care (01) | LOC: LAB 09:26 | PROVIDERS: ATTEND Internal Medicine Cardiovascular Disease | DX: I48.91 Unspecified atrial fibrillation (principal); Z79.899 Other long term (current) drug therapy | CPT/HCPCS: 36416; 85610 ==

== ENCOUNTER 2022-01-21 10:02 | Outpatient (CLI) | payer MEDICARE | END 2022-01-21 10:03 | disposition home or self-care (01) | LOC: LAB 10:02 | PROVIDERS: ATTEND Internal Medicine Cardiovascular Disease | DX: I48.91 Unspecified atrial fibrillation (principal); Z79.899 Other long term (current) drug therapy | CPT/HCPCS: 36416; 85610 ==

== ENCOUNTER 2022-02-12 09:04 | Outpatient (CLI) | payer MEDICARE | END 2022-02-12 09:05 | disposition home or self-care (01) | LOC: LAB 09:04 | PROVIDERS: ATTEND Internal Medicine Cardiovascular Disease | DX: I48.91 Unspecified atrial fibrillation (principal); Z79.899 Other long term (current) drug therapy | CPT/HCPCS: 36416; 85610 ==

== ENCOUNTER 2022-03-06 09:42 | Outpatient (CLI) | payer MEDICARE | END 2022-03-06 09:43 | disposition home or self-care (01) | LOC: LAB 09:42 | PROVIDERS: ATTEND Internal Medicine Cardiovascular Disease | DX: I48.91 Unspecified atrial fibrillation (principal); Z79.899 Other long term (current) drug therapy | CPT/HCPCS: 36416; 85610 ==

== ENCOUNTER 2022-04-03 09:06 | Outpatient (CLI) | payer MEDICARE | END 2022-04-03 09:07 | disposition home or self-care (01) | LOC: LAB 09:06 | PROVIDERS: ATTEND Internal Medicine Cardiovascular Disease | DX: I48.91 Unspecified atrial fibrillation (principal); Z79.899 Other long term (current) drug therapy | CPT/HCPCS: 36416; 85610 ==

== ENCOUNTER 2022-05-01 09:55 | Outpatient (CLI) | payer MEDICARE | END 2022-05-01 09:56 | disposition home or self-care (01) | LOC: LAB 09:55 | PROVIDERS: ATTEND Internal Medicine Cardiovascular Disease | DX: I48.91 Unspecified atrial fibrillation (principal); Z79.899 Other long term (current) drug therapy | CPT/HCPCS: 36416; 85610 ==

== ENCOUNTER 2022-05-24 09:05 | Outpatient (CLI) | payer MEDICARE | END 2022-05-24 09:06 | disposition home or self-care (01) | LOC: LAB 09:05 | PROVIDERS: ATTEND Internal Medicine Cardiovascular Disease | DX: I48.91 Unspecified atrial fibrillation (principal); Z79.899 Other long term (current) drug therapy | CPT/HCPCS: 36416; 85610 ==

== ENCOUNTER 2022-05-31 08:36 | Outpatient (CLI) | payer MEDICARE | END 2022-05-31 08:37 | disposition home or self-care (01) | LOC: LAB 08:36 | PROVIDERS: ATTEND Internal Medicine Cardiovascular Disease | DX: I48.91 Unspecified atrial fibrillation (principal); Z79.899 Other long term (current) drug therapy | CPT/HCPCS: 36416; 85610 ==

== ENCOUNTER 2022-06-21 08:53 | Outpatient (CLI) | payer MEDICARE | END 2022-06-21 08:54 | disposition home or self-care (01) | LOC: LAB 08:53 | PROVIDERS: ATTEND Internal Medicine Cardiovascular Disease | DX: I48.91 Unspecified atrial fibrillation (principal); Z79.899 Other long term (current) drug therapy | CPT/HCPCS: 36416; 85610 ==

== ENCOUNTER 2022-07-09 17:00 | Inpatient (IN) | payer MEDICARE ==
--- NOTE | 2022-07-09 17:23 | ED Physician Documentation ---
PD HPI DYSPNEA - Stated complaint Stated Complaint: SOA - Chief complaint Chief Complaint: Resp - History obtained from History obtained from: Patient - Additional information Additional information: 76-year-old woman history of atrial fibrillation, coronary disease with AL developed symptomatic COVID 4 days ago and started paxlovid. She has had malaise, cough, and shortness of breath and had low oxygen saturations and was sent here from the walk-in clinic. 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 : None HEENT: None Psych: None Musculoskeletal: Osteopenia, Chronic back pain Derm: None - Past Surgical History Past Surgical History: Yes Ortho: Other /BOAT LOADER HELPER: Other HEENT: Cataracts - Present Medications Home Medications: Ambulatory Orders Medication Instructions Recorded Confirmed Diltiazem HCl [Dilt-Xr] 240 mg PO DAILY 12/08/12 04/15/22 Metoprolol Tartrate 150 mg PO BID 12/08/12 04/15/22 hydroCHLOROthiazide [Hydrodiuril] 25 mg PO DAILY 12/08/12 04/15/22 Warfarin [Coumadin] 2.5 mg PO 1400 11/04/13 04/15/22 Atorvastatin Calcium 80 mg PO DAILY 06/09/17 04/15/22 Ezetimibe [Zetia] 10 mg PO DAILY 08/30/19 04/15/22 Clobetasol Propionate [Impoyz] 60 gm TP BID PRN #60 gm 08/28/20 04/15/22 Anastrozole 1 mg ORAL DAILY 10/01/21 04/15/22 Ezetimibe [Zetia] 10 mg PO QD 10/01/21 04/15/22 - Allergies Allergies/Adverse Reactions: Allergies Allergy/AdvReac Type Severity Reaction Status Date / Time No Known Drug Allergies Allergy Verified 07/09/22 17:10 - Social History Does the pt smoke?: No Smoking Status: Former smoker Does the pt drink ETOH?: Yes Does the pt have substance abuse?: No - Immunizations Immunizations are current?: Yes - POLST Patient has POLST: No PD ED PE NORMAL - Vitals Vital signs reviewed: Yes (92% in triage, on my evaluation she is 82%.) - General General: Alert and oriented X 3, No acute distress - HEENT HEENT: PERRL, EOMI - Neck Neck: Supple, no meningeal sign, No bony TTP - Cardiac Cardiac: Other (Irregularly irregular) - Respiratory Respiratory: No respiratory distress, Clear bilaterally - Abdomen Abdomen: Non tender - Extremities Extremities: No edema, No calf tenderness / cord - Neuro Neuro: Alert and oriented X 3, Normal speech Results - Vitals Vitals: Vital Signs - 24 hr 07/09/22 07/09/22 07/09/22 17:05 17:10 17:18 Temperature 36.7 C Heart Rate 73 Respiratory 20 22 17 Rate Blood Pressure 113/54 L O2 Saturation 92 82 L If not protocol : Oxygen Flow, liters/minute 07/09/22 07/09/22 18:12 18:13 Temperature Heart Rate 67 76 Respiratory 16 20 Rate Blood Pressure 121/66 O2 Saturation 96 84 L If not protocol 3 : Oxygen Flow, liters/minute Oxygen O2 Source Room air - EKG (time done) 1727 EKG releavant findings:: EKG personally interpreted by author of this note. Relevant findings are: Rate: Rate (enter#) (77) Rhythm: Atrial flutter (w pvc) Intervals: Other (ivcd) Ischemia: Non specific changes. No: ST elevation c/w ischemia, ST depression - Labs Labs: Laboratory Tests 07/09/22 07/09/22 07/09/22 17:30 17:30 17:30 WBC 5.3 RBC 3.43 L Hgb 11.2 L Hct 33.7 L MCV 98.3 MCH 32.7 H MCHC 33.2 RDW 14.8 Plt Count 159 MPV 9.7 Neut # (Auto) 3.8 Lymph # (Auto) 0.7 L [place] # (Auto) 0.8 Eos # (Auto) 0.0 Baso # (Auto) 0.0 Absolute Nucleated RBC 0.00 Nucleated RBC % 0.0 PT INR Sodium 137 Potassium 3.6 Chloride 103 Carbon Dioxide 20 L Anion Gap 14.0 H BUN 23 H Creatinine 1.3 H Estimated GFR (MDRD) 40 L Glucose 108 H Calcium 8.6 B-Natriuretic Peptide 747 H 07/09/22 17:30 WBC RBC Hgb Hct MCV MCH MCHC RDW Plt Count MPV Neut # (Auto) Lymph # (Auto) [place] # (Auto) Eos # (Auto) Baso # (Auto) Absolute Nucleated RBC Nucleated RBC % PT 14.3 H INR 1.3 H Sodium Potassium Chloride Carbon Dioxide Anion Gap BUN Creatinine Estimated GFR (MDRD) Glucose Calcium B-Natriuretic Peptide - Rads (name of study) Single view chest x-ray demonstrates diffuse airway opacities Relevant Findings:: Final report received, EMP independent interpretation of test PD Medical Decision Making - ED course ED course: 76-year-old woman with multiple comorbidities presents with symptomatic COVID and hypoxemia down into the low 80s here on room air with chest x-ray showing viral pattern. The remainder of her work-up shows a CBC with mild anemia. INR subtherapeutic at 1.3, she is chronic renal insufficiency on her BMP. Decision to admit was made at 6:10 PM on July 09 but we are awaiting shift change for the hospitalist to admit. Departure - Departure Disposition: 66 [facility] DC/Xfer Clinical Impression: Pneumonia due to COVID-19 virus, Atrial fibrillation Respiratory failure Qualifiers: Chronicity: acute Respiratory failure complication: hypoxia Qualified Code(s): J96.01 - Acute respiratory failure with hypoxia Condition: Serious
[2022-07-09 17:37] LABS: HCT - HEMATOCRIT 33.7 % (37.0-47.0); HGB - HEMOGLOBIN 11.2 g/dL (12.0-16.0); LYMPHOCYTES # (AUTO) 0.7 10^3/uL (1.5-3.5); LYMPHOCYTES % (AUTO) 12.8 %; MEAN CORPUSCULAR HEMOGLOBIN 32.7 pg (27.0-31.0); MEAN CORPUSCULAR HGB CONC 33.2 g/dL (32.0-36.0); MEAN CORPUSCULAR VOLUME 98.3 fL (81.0-99.0); MEAN PLATELET VOLUME 9.7 fL (7.9-10.8); MONOCYTES # (AUTO) 0.8 10^3/uL (0.0-1.0); NEUTROPHILS # (AUTO) 3.8 10^3/uL (1.5-6.6); PLT - PLATELET COUNT 159 10^3/uL (130-450); RED BLOOD COUNT 3.43 10^6/uL (4.20-5.40); RED CELL DISTRIBUTION WIDTH 14.8 % (12.0-15.0); WHITE BLOOD COUNT 5.3 x10^3/uL (4.8-10.8)
[2022-07-09 17:46] LABS: CALCIUM 8.6 mg/dL (8.5-10.3); CREATININE 1.3 mg/dL (0.4-1.0); POTASSIUM 3.6 mmol/L (3.5-5.0)
--- NOTE | 2022-07-09 17:49 | XRAY Report ---
PROCEDURE: Chest 1 View X-Ray INDICATIONS: dyspnea, hypoxemia, covid TECHNIQUE: One view of the chest was acquired. COMPARISON: None. FINDINGS: Surgical changes and devices: Right axillary lymph node dissection. Lungs and pleura: Diffuse airspace opacities. Mediastinum: Mediastinal contours appear normal. Heart size is normal. Bones and chest wall: Right glenohumeral osteoarthritis. Overlying soft tissues appear unremarkable. IMPRESSION: Diffuse airspace opacities, could represent severe infection, acute lung injury or pulmonary edema. Reviewed by: Chinmay Dejesus on 07/09/2022 4:47 PM AKDT Approved by: Chinmay Dejesus on 07/09/2022 4:47 PM AKDT Station ID: [id number]
[2022-07-09 17:51] LABS: INR 1.3 (0.8-1.2); PT - PROTHROMBIN TIME 14.3 secs (9.9-12.6)
[2022-07-09] MEDS ORDERED: SODIUM CHLORIDE FLUSH 0.9% 10 ML SYRINGE IVP PRN (20:06)
[2022-07-09] MEDS ORDERED: ACETAMINOPHEN 325 MG TABLET PO PRN ×2 (20:06→20:10)
[2022-07-09] MEDS ORDERED: ONDANSETRON 4 MG/2 ML VIAL IVP PRN (20:06)
[2022-07-09] MEDS: cefTRIAXone 2 GM in SODIUM CHLORIDE 0.9% MINIBAG 100 ML IV SCH (20:11)
[2022-07-09] MEDS ORDERED: cefTRIAXone 2 GM VIAL ONE (20:15)
--- NOTE | 2022-07-09 20:16 | HISTORY & PHYSICAL EXAMINATION ---
Chief Complaint - Chief Complaint Chief Complaint: fever, SOB, n/v, mylaise History of Present Illness - Admitted From Admitted From:: ED - History Obtained From Records Reviewed: EMR History obtained from: Patient and EMR Exam Limitations: Telemedicine - History of Present Illness HPI Comment/Other: 76F c hypertension, HLD, and afib on warfarin. p/w fever, cough, SOB, n/v/d, and malaise since this past Friday, 3 days ago. Patient reports her and her started having URIs symptoms. Both he and her took the COVID testing and he was tested positive but she was negative. She did not feel her test was accurate. Patient's breathing worsened and she felt not well and decided to come into the ED. Here in the ED patient is noted to be hypoxemic into the 80s with CXR citing multifocal infiltrates. COVID testing was ordered by the Hospitalist. BCx and UCx ordered by Hospitals as well. She is more comfortable now on 3 L NC. 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: reports: None : reports: None HEENT: reports: None Psych: reports: None Musculoskeletal: reports: Osteopenia, Chronic back pain Derm: reports: None MRSA Hx?: No - Past Surgical History Ortho: reports: Other /EFFICIENCY ENGINEER: reports: Other HEENT: reports: Cataracts - POLST Patient has POLST: No Meds/Allgy - Home Medications Home Medications: Ambulatory Orders Medication Instructions Recorded Confirmed Diltiazem HCl [Dilt-Xr] 240 mg PO DAILY 12/08/12 04/15/22 Metoprolol Tartrate 150 mg PO BID 12/08/12 04/15/22 Warfarin [Coumadin] 2.5 mg PO 1400 11/04/13 04/15/22 Atorvastatin Calcium 80 mg PO DAILY 06/09/17 04/15/22 Ezetimibe [Zetia] 10 mg PO DAILY 08/30/19 04/15/22 Clobetasol Propionate [Impoyz] 60 gm TP BID PRN #60 gm 08/28/20 04/15/22 Anastrozole 1 mg ORAL DAILY 10/01/21 04/15/22 - Allergies Allergies/Adverse Reactions: Allergies Allergy/AdvReac Type Severity Reaction Status Date / Time No Known Drug Allergies Allergy Verified 07/09/22 17:10 Review of Systems - Constitutional Constitutional: reports: Fever, Malaise - Respiratory Respiratory: reports: Cough, SOB at rest, SOB with exertion - Gastrointestinal Gastrointestinal: reports: Diarrhea, Nausea, Vomiting - Genitourinary Genitourinary: denies: Dysuria - Musculoskeletal Musculoskeletal: reports: Muscle pain - Neurological Neurological: reports: General weakness Exam - Vital Signs Reviewed Vital Signs: Yes Vital Signs: Vital Signs x48h Temp Pulse Resp BP Pulse Ox O2 Flow Rate 07/09/22 20:09 79 19 99 3 07/09/22 19:19 85 16 133/83 H 98 3 07/09/22 18:20 3 07/09/22 18:13 76 20 84 L 07/09/22 18:12 67 16 121/66 96 3 07/09/22 17:18 17 07/09/22 17:10 22 82 L 07/09/22 17:05 36.7 C 73 20 113/54 L 92 - Physical Exam General Appearance: positive: No acute distress Eyes Bilateral: positive: Normal inspection ENT: positive: ENT inspection nml Neck: positive: Nml inspection Respiratory: positive: No respiratory distress. negative: Wheezes, Rales, Rhonchi Cardiovascular: positive: Regular rate & rhythm Abdomen: positive: Non-tender, No distention. negative: Tenderness Skin: positive: Color nml Extremities: positive: Nml appearance Neurologic/Psychiatric: positive: Oriented x3, CN's nml (2-12) Conclusion/Plan - Problem List (1) Acute hypoxemic respiratory failure Conclusion/Plan: hx and sxs and cxr support of pneumonia. r/o bacterial vs viral specifically COVID. given close prox to covid positive will emprically cover for covid. proceed with empiric abx. for covid, decardon and Remdesivir. communication to pharm for remdesivir. o2 support. breathing treatment. followup cultures and PCR stds. (2) Bacterial pneumonia Conclusion/Plan: hx and sxs and cxr support of pneumonia. r/o bacterial vs viral specifically COVID. given close prox to covid positive will emprically cover for covid. proceed with empiric abx. for covid, decardon and Remdesivir. communication to pharm for remdesivir. o2 support. breathing treatment. followup cultures and PCR stds. (3) Hypertension Conclusion/Plan: controlled. continue metorpolol and dilt. monitor blood pressure c repeat vital checks (4) Hyperlipidemia Conclusion/Plan: managed. continue atorvastatin and Zetia (5) Atrial fibrillation Conclusion/Plan: rate controlled. continue metoprolol & diltiazem. monitor on tele. continue anticoagulation with warfarin. 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 stage 3B. no prior renal function to compare. deemed chronic and baseline for patient. avoid nephrotoxins. monitor renal function with repeat BMP - Lab Results Lab results reviewed: Yes Carlton Bones: 07/09/22 17:30 07/09/22 17:30 - Diagnostic Imaging Results Diagnostic Imaging Results: positive: Final report reviewed Diagnostic Imaging Results Comments: CXR showing infiltrates Core Measures - Anticipated LOS I expect patient to be DC'd or transferred within 96 hours.: No - Issues Hospital Issues and Management Plan: The patient consented to receive this telemedicine service, which I performed via live two-way audiovisual equipment. The patient is at ([facility]) and I am physically in [facility]. A nurse assisted me in the visit. - DVT/VTE - Prophylaxis VTE/DVT Device ordered at admit?: Yes Telemedicine Consult Details - Provider Location & Consult Time Telemedicine consultation conducted via videoconferencing?: Yes List names and roles of persons who participated in consult:: patient and RN Telemedicine provider location:: [facility] Time Telemedicine consult began:: 19:44 Time Telemedicine consult completed:: 20:44
[2022-07-09] MEDS: DOXYCYCLINE INJ 100 MG in SODIUM CHLORIDE 0.9% MINIBAG 100 ML IV SCH (21:00)
[2022-07-09] MEDS ORDERED: HEPARIN 5,000 UNIT/ML VIAL SUBQ SCH (21:00)
[2022-07-09 21:15] LABS: B. PARAPERTUSSIS- RESP PCR PAN NOT DETECTED; B. PERTUSSIS- RESP PCR PANEL NOT DETECTED; C. PNEUMONIAE- RESP PCR PANEL NOT DETECTED; CORONAVIRUS 229E-RESP PCR NOT DETECTED; CORONAVIRUS HKU1-RESP PCR NOT DETECTED; CORONAVIRUS NL63-RESP PCR NOT DETECTED; CORONAVIRUS OC43-RESP PCR NOT DETECTED; HUMAN METAPNEUMOVIRUS NOT DETECTED; INFLUENZA A- RESP PCR PANEL NOT DETECTED; INFLUENZA B - RESP PCR PANEL NOT DETECTED; M. PNEUMONIAE- RESP PCR PANEL NOT DETECTED; PARAINFLUENZA VIRUS 1 NOT DETECTED; PARAINFLUENZA VIRUS 2 NOT DETECTED; PARAINFLUENZA VIRUS 3 NOT DETECTED; PARAINFLUENZA VIRUS 4 NOT DETECTED; RHINOVIRUS/ENTEROVIRUS NOT DETECTED; RSV- RESP PCR PANEL NOT DETECTED
[2022-07-09 21:23] LABS: SARS-CoV-2 -RESP PCR PANEL DETECTED
[2022-07-09] MEDS: SODIUM CHLORIDE FLUSH 0.9% 10 ML SYRINGE IVP SCH (23:52)
[2022-07-10] MEDS: IPRATROPIUM/ALBUTEROL 3 ML NEB INH SCH ×3 (02:32→05:50)
[2022-07-10 05:04] LABS: INR 1.4 (0.8-1.2); PT - PROTHROMBIN TIME 15.2 secs (9.9-12.6)
[2022-07-10] MEDS: DOXYCYCLINE INJ 100 MG in SODIUM CHLORIDE 0.9% MINIBAG 100 ML IV SCH ×2 (09:32→21:00)
[2022-07-10] MEDS: diltiaZEM CD 240 MG CAPSULE PO SCH (09:32)
[2022-07-10] MEDS: SODIUM CHLORIDE FLUSH 0.9% 10 ML SYRINGE IVP SCH ×3 (09:32→23:35)
[2022-07-10] MEDS ORDERED: REMDESIVIR 100MG VIAL 200 MG in SODIUM CHLORIDE 0.9% 250 ML IV ONE (12:00)
[2022-07-10] MEDS ORDERED: ALBUTEROL 1 PUFF INH PRN (13:13)
--- NOTE | 2022-07-10 13:36 | PHARMACY PROGRESS NOTE ---
- Best Possible Medication History Admit Date and Time: 07/09/222005 Processed by: Pharmacy Medication History completed: Yes Patient Interview: Completed Secondary Source(s): Pharmacy records As the person ultimately responsible for medication therapy, providers are able to order a medication from an existing home medication list in [facility] via the "Reconcile Routine" prior to Confirmation of that medication by direct support professional. Such practice is discouraged except when the physician, in their clinical judgment, deems that a medical need exists for a medication without regard to previous use.
--- NOTE | 2022-07-10 17:08 | PROVIDER PROGRESS NOTE ---
Subjective - Prog Note Date Prog Note Date: 07/10/22 Prog Note Time: 17:04 - Subjective Pt reports feeling: Improved Subjective: Mrs. Alejandre was very pleasant during my examination. She expresses feeling better today, but still very tired and weak. She reports not having much of an appetite. 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 Patient endorses fatigue, cough, nausea, diarrhea, and weakness. She denies JONES, sore throat, dyspnea, chest pain, palpitations, vomit, abdominal pain, frequency, urgency. Current Medications - Current Medications Current Medications: Active Medications Acetaminophen (Acetaminophen 325 Mg Tablet) 650 mg PO Q6HR PRN PRN Reason: PAIN 1-4 Albuterol (Albuterol 1 Puff) 2 puffs INH Q4HR PRN PRN Reason: Wheezing Stop: 07/17/22 13:12 Dexamethasone Sodium Phosphate (Dexamethasone 10 Mg/Ml Vial) 10 mg IVP DAILY [facility] Diltiazem HCl (Diltiazem Cd 240 Mg Capsule) 240 mg PO DAILY [facility] Last Admin: 07/10/22 09:32 Dose: 240 mg Ceftriaxone Sodium 2 gm/ (Sodium Chloride) 100 mls @ 200 mls/hr IV Q24H [facility] Last Infusion: 07/09/22 20:41 Dose: Infused Doxycycline Hyclate 100 mg/ (Sodium Chloride) 100 mls @ 100 mls/hr IV BID [facility] Last Infusion: 07/10/22 10:35 Dose: Infused Remdesivir 100 mg/ Sodium (Chloride) 100 mls @ 200 mls/hr IV DAILY [facility] Stop: 07/14/22 09:29 Ondansetron HCl (Ondansetron 4 Mg/2 Ml Vial) 4 mg IVP Q6HR PRN PRN Reason: Nausea / Vomiting Sodium Chloride (Sodium Chloride Flush 0.9% 10 Ml Syringe) 10 ml IVP PRN PRN PRN Reason: NEEDED PER PROVIDER ORDERS Sodium Chloride (Sodium Chloride Flush 0.9% 10 Ml Syringe) 10 ml IVP 0100,0900 ,1700 [facility] Last Admin: 07/10/22 15:47 Dose: 10 ml Diltiazem HCl [Dilt-Xr] 240 mg PO DAILY 12/08/12 Metoprolol Tartrate 150 mg PO BID 12/08/12 Warfarin [Coumadin] 2.5 mg PO WESA 11/04/13 Atorvastatin Calcium 80 mg PO DAILY 06/09/17 Ezetimibe [Zetia] 10 mg PO DAILY 08/30/19 Anastrozole 1 mg ORAL DAILY 10/01/21 Acetaminophen [Tylenol] 2 tab PO TID PRN 07/10/22 Amitriptyline HCl 1 tab PO HS PRN 07/10/22 Calcium Carb (Oyster Shell) [Oysco-500] 1 tab PO DAILY 07/10/22 [place]-3/Dha/Epa/Fish Oil [Fish Oil 1,000 mg Softgel] 1 cap PO DAILY 07/10/22 Warfarin [Coumadin] 0.5 tab PO SUMOTUTHFR 07/10/22 Objective - Vital Signs/Intake & Output Reviewed Vital Signs: Yes Vital Signs: Vital Signs x48h Temp Pulse Pulse Resp BP Pulse Ox O2 Flow Rate 07/10/22 15:44 36.6 C 90 16 120/60 93 1 07/10/22 13:00 36.4 C L 92 18 114/60 97 1 07/10/22 10:39 87 99 1 Intake & Output: Intake & Output 07/07/22 07/08/22 07/09/22 07/10/22 23:59 23:59 23:59 23:59 Intake Total 200 650 Balance 200 650 - Objective General Appearance: positive: No acute distress, Alert Eyes Bilateral: positive: Normal inspection, EOMI ENT: positive: ENT inspection nml Neck: positive: Nml inspection, No JVD, Trachea midline Respiratory: positive: Chest non-tender, No respiratory distress (Lower lobe, bilaterally.), Wheezes Cardiovascular: positive: No murmur, No gallop, Irregularly irregular Abdomen: positive: Non-tender, No organomegaly, Nml bowel sounds, No distention Back: positive: Nml inspection Skin: positive: Color nml, No rash, Warm, Dry Extremities: positive: Non-tender, Full ROM, Nml appearance, No pedal edema Neurologic/Psychiatric: positive: Oriented x3, CN's nml (2-12), Motor nml, Sensation nml, Mood/affect nml - Lab Results Fish Bones: 07/09/22 17:30 07/09/22 17:30 Other Labs: Lab Results x24hrs 05/24/23 05/23/23 05/23/23 Range/Units 04:35 20:10 20:05 WBC (4.8-10.8) x10^3/uL RBC (4.20-5.40) 10^6/uL Hgb (12.0-16.0) g/dL Hct (37.0-47.0) % MCV (81.0-99.0) fL MCH (27.0-31.0) pg MCHC (32.0-36.0) g/dL RDW (12.0-15.0) % Plt Count (130-450) 10^3/uL MPV (7.9-10.8) fL Neut # (Auto) (1.5-6.6) 10^3/uL Lymph # (Auto) (1.5-3.5) 10^3/uL [place] # (Auto) (0.0-1.0) 10^3/uL Eos # (Auto) (0.0-0.7) 10^3/uL Baso # (Auto) (0.0-0.1) 10^3/uL Absolute Nucleated RBC x10^3/uL Nucleated RBC % /100WBC PT 15.2 H (9.9-12.6) secs INR 1.4 H (0.8-1.2) Sodium (135-145) mmol/L Potassium (3.5-5.0) mmol/L Chloride (101-111) mmol/L Carbon Dioxide (21-32) mmol/L Anion Gap (6-13) BUN (6-20) mg/dL Creatinine (0.4-1.0) mg/dL Estimated GFR (MDRD) (>89) Glucose (70-100) mg/dL Calcium (8.5-10.3) mg/dL Troponin I High Sens 26.3 H* (2.3-14.8) ng/L B-Natriuretic Peptide (5-100) pg/mL Procalcitonin (<0.5) ng/mL Nasal Adenovirus (PCR) NOT DETECTED Nasal B. parapertussis DNA (PCR) NOT DETECTED Nasal Coronavir 229E PCR NOT DETECTED Nasal Coronavir HKU1 PCR NOT DETECTED Nasal Coronavir NL63 PCR NOT DETECTED Nasal Coronavir OC43 PCR NOT DETECTED Nasal Enterovir/Rhinovir PCR NOT DETECTED Nasal Influenza B PCR NOT DETECTED Nasal Influenza A PCR NOT DETECTED Nasal Parainfluen 1 PCR NOT DETECTED Nasal Parainfluen 2 PCR NOT DETECTED Nasal Parainfluen 3 PCR NOT DETECTED Nasal Parainfluen 4 PCR NOT DETECTED Nasal RSV (PCR) NOT DETECTED Nasal B.pertussis DNA PCR NOT DETECTED Nasal C.pneumoniae (PCR) NOT DETECTED Nemesio Human Metapneumo PCR NOT DETECTED Nasal M.pneumoniae (PCR) NOT DETECTED Nasal SARS-CoV-2 (PCR) DETECTED A 07/09/22 07/09/22 07/09/22 Range/Units 20:05 17:30 17:30 WBC (4.8-10.8) x10^3/uL RBC (4.20-5.40) 10^6/uL Hgb (12.0-16.0) g/dL Hct (37.0-47.0) % MCV (81.0-99.0) fL MCH (27.0-31.0) pg MCHC (32.0-36.0) g/dL RDW (12.0-15.0) % Plt Count (130-450) 10^3/uL MPV (7.9-10.8) fL Neut # (Auto) (1.5-6.6) 10^3/uL Lymph # (Auto) (1.5-3.5) 10^3/uL [place] # (Auto) (0.0-1.0) 10^3/uL Eos # (Auto) (0.0-0.7) 10^3/uL Baso # (Auto) (0.0-0.1) 10^3/uL Absolute Nucleated RBC x10^3/uL Nucleated RBC % /100WBC PT 14.3 H (9.9-12.6) secs INR 1.3 H (0.8-1.2) Sodium (135-145) mmol/L Potassium (3.5-5.0) mmol/L Chloride (101-111) mmol/L Carbon Dioxide (21-32) mmol/L Anion Gap (6-13) BUN (6-20) mg/dL Creatinine (0.4-1.0) mg/dL Estimated GFR (MDRD) (>89) Glucose (70-100) mg/dL Calcium (8.5-10.3) mg/dL Troponin I High Sens (2.3-14.8) ng/L B-Natriuretic Peptide 747 H (5-100) pg/mL Procalcitonin 0.39 (<0.5) ng/mL Nasal Adenovirus (PCR) Nasal B. parapertussis DNA (PCR) Nasal Coronavir 229E PCR Nasal Coronavir HKU1 PCR Nasal Coronavir NL63 PCR Nasal Coronavir OC43 PCR Nasal Enterovir/Rhinovir PCR Nasal Influenza B PCR Nasal Influenza A PCR Nasal Parainfluen 1 PCR Nasal Parainfluen 2 PCR Nasal Parainfluen 3 PCR Nasal Parainfluen 4 PCR Nasal RSV (PCR) Nasal B.pertussis DNA PCR Nasal C.pneumoniae (PCR) Nemesio Human Metapneumo PCR Nasal M.pneumoniae (PCR) Nasal SARS-CoV-2 (PCR) 07/09/22 07/09/22 Range/Units 17:30 17:30 WBC 5.3 (4.8-10.8) x10^3/uL RBC 3.43 L (4.20-5.40) 10^6/uL Hgb 11.2 L (12.0-16.0) g/dL Hct 33.7 L (37.0-47.0) % MCV 98.3 (81.0-99.0) fL MCH 32.7 H (27.0-31.0) pg MCHC 33.2 (32.0-36.0) g/dL RDW 14.8 (12.0-15.0) % Plt Count 159 (130-450) 10^3/uL MPV 9.7 (7.9-10.8) fL Neut # (Auto) 3.8 (1.5-6.6) 10^3/uL Lymph # (Auto) 0.7 L (1.5-3.5) 10^3/uL [place] # (Auto) 0.8 (0.0-1.0) 10^3/uL Eos # (Auto) 0.0 (0.0-0.7) 10^3/uL Baso # (Auto) 0.0 (0.0-0.1) 10^3/uL Absolute Nucleated RBC 0.00 x10^3/uL Nucleated RBC % 0.0 /100WBC PT (9.9-12.6) secs INR (0.8-1.2) Sodium 137 (135-145) mmol/L Potassium 3.6 (3.5-5.0) mmol/L Chloride 103 (101-111) mmol/L Carbon Dioxide 20 L (21-32) mmol/L Anion Gap 14.0 H (6-13) BUN 23 H (6-20) mg/dL Creatinine 1.3 H (0.4-1.0) mg/dL Estimated GFR (MDRD) 40 L (>89) Glucose 108 H (70-100) mg/dL Calcium 8.6 (8.5-10.3) mg/dL Troponin I High Sens (2.3-14.8) ng/L B-Natriuretic Peptide (5-100) pg/mL Procalcitonin (<0.5) ng/mL Nasal Adenovirus (PCR) Nasal B. parapertussis DNA (PCR) Nasal Coronavir 229E PCR Nasal Coronavir HKU1 PCR Nasal Coronavir NL63 PCR Nasal Coronavir OC43 PCR Nasal Enterovir/Rhinovir PCR Nasal Influenza B PCR Nasal Influenza A PCR Nasal Parainfluen 1 PCR Nasal Parainfluen 2 PCR Nasal Parainfluen 3 PCR Nasal Parainfluen 4 PCR Nasal RSV (PCR) Nasal B.pertussis DNA PCR Nasal C.pneumoniae (PCR) Nemesio Human Metapneumo PCR Nasal M.pneumoniae (PCR) Nasal SARS-CoV-2 (PCR) - Diagnostic Imaging Diagnostic Imaging Results: positive: Final report reviewed ABX Reporting Has patient been on IV antibiotics over the past 48 hours?: Yes Sepsis Event Note (H) - Evaluation Current Stage of Sepsis: Ruled out Assessment/Plan - Problem List (1) Pneumonia due to COVID-19 virus Impression: Pt has tested positive for COVID. She was started on remdesivir. She was also started on duoneb treatments. Since she has improved, duoneb can be discontinued and switched to albuterol metered dose inhaler, in order to lessen the exposure for staff. She is on empiric abx for possible secondary PNA. PLAN: Continue O2 supplementation. Continue remdesivir. Switch to albuterol 2 puffs q4hr PRN treatments, and monitor for improvement. Continue IV rocephin. (2) Acute hypoxemic respiratory failure Impression: Today patient reports no dyspnea. The source of her acute hypoxemia is very likely COVID, as she tested positive. She was titrated from 3L to 1L nasal cannula. Our goal for her is > 92%. Her sats ranged between 93-97 on 1L. Switch duoneb to albuterol. PLAN: Continue O2 support. She could likely come off supplementation if her sats are stable tomorrow. Continue decadron 10 mg IV qd. Continue albuterol treatments. (3) Atrial fibrillation Impression: Pt was diagnosed in 2013 after a hip replacement. It is rate controlled. Current management is metoprolol and diltiazem. She is anticoagulated with warfarin. Pt reports her schedule is 5 days of 1.75 mg, and 2 days of 2.5 mg. However, this does not match with the medication reconciliation. Today's INR is 1.4. PLAN: Start warfarin 10 mg tonight, and 5 mg tomorrow. Will assess tomorrow for adjustment. Continue monitoring on telemetry. Continue daily INR monitoring. (4) CKD stage G3b/A2, GFR 30-44 and albumin creatinine ratio 30-299 mg/g Impression: On admission, patient's delivery mgr was 1.3, and eGFR 40. Stage 3B CKD. There is no prior renal function to compare. This was unknown to pt until recently. Deemed chronic and baseline for patient. PLAN: Avoid nephrotoxins. Monitor renal function with repeat BMP. (5) Macrocytic anemia Impression: CBC revealed mild macrocytic anemia. Etiology could likely be deficiency of vitamin B12 or B9. PLAN: Check vitamin B12/B9 levels for deficiency. Depending on results, treat accordingly. (6) Hyperlipidemia Impression: Home management consists of atorvastatin and Zetia. PLAN: At this time, there is no indication to assess lipid panel. (7) Hypertension Impression: The patient's HTN is controlled. Her most recent bp today was 120/60, and previously 114/60. Currently, she is not receiving metoprolol. PLAN: Begin pt's home medication metoprolol 150 mg bid PO if bp becomes uncontrolled. Continue monitoring bp.
[2022-07-10] MEDS ORDERED: DEXAMETHASONE 10 MG/ML VIAL IVP SCH (19:54)
[2022-07-10] MEDS: cefTRIAXone 2 GM in SODIUM CHLORIDE 0.9% MINIBAG 100 ML IV SCH (20:16)
[2022-07-10] MEDS: METOPROLOL TARTRATE 50 MG TABLET PO SCH (20:17)
[2022-07-10] MEDS ORDERED: WARFARIN 2.5 MG TABLET PO SCH (21:00)
[2022-07-10] MEDS ORDERED: AMITRIPTYLINE 25 MG TABLET PO PRN (21:00)
[2022-07-10 22:23] LABS: BILIRUBIN,URINE NEGATIVE (NEGATIVE); GLUCOSE, URINE (UA) NEGATIVE (NEGATIVE); KETONES,URINE (UA) TRACE mg/dL (NEGATIVE); LEUKOCYTE ESTERASE, URINE TRACE (NEGATIVE); NITRITE,URINE NEGATIVE (NEGATIVE); OCCULT BLOOD,URINE NEGATIVE (NEGATIVE); PH,URINE 5.5 PH (5.0-7.5); PROTEIN,URINE 100 mg/dL (NEGATIVE); UROBILINOGEN,URINE 0.2 (NORMAL) E.U./dL (NORMAL)
[2022-07-10 22:24] LABS: CLARITY,URINE HAZY (CLEAR)
[2022-07-10 22:31] LABS: WBC,URINE >25 /HPF (0-5)
[2022-07-10 22:32] LABS: BACTERIA,URINE Few /HPF (None Seen); RBC,URINE 0-5 /HPF (0-5); SQUAMOUS EPITHELIAL CELL,UR MANY Squamous (<= Few)
[2022-07-11 05:30] LABS: INR 1.3 (0.8-1.2); PT - PROTHROMBIN TIME 13.9 secs (9.9-12.6)
[2022-07-11 05:59] LABS: FERRITIN 298.3 ng/mL (11.0-306.8)
[2022-07-11] MEDS: diltiaZEM CD 240 MG CAPSULE PO SCH (08:34)
[2022-07-11] MEDS: METOPROLOL TARTRATE 50 MG TABLET PO SCH (08:35)
[2022-07-11] MEDS: SODIUM CHLORIDE FLUSH 0.9% 10 ML SYRINGE IVP SCH (08:36)
[2022-07-11] MEDS ORDERED: DEXAMETHASONE 10 MG/ML VIAL IVP SCH (09:00)
[2022-07-11] MEDS ORDERED: ATORVASTATIN 40 MG TABLET PO SCH (09:00)
[2022-07-11] MEDS ORDERED: REMDESIVIR 100MG VIAL 100 MG in SODIUM CHLORIDE 0.9% 100ML 100 ML IV SCH (09:00)
[2022-07-11 09:07] LABS: ABSOLUTE RETICS # AUTO 0.044 10^6/uL (0.020-0.110); RED BLOOD COUNT 3.39 10^6/uL (4.20-5.40); RETICULOCYTE COUNT % (AUTO) 1.3 % (0.5-2.3)
[2022-07-11] MEDS: DOXYCYCLINE INJ 100 MG in SODIUM CHLORIDE 0.9% MINIBAG 100 ML IV SCH (09:18)
[2022-07-11 09:25] LABS: % IRON SATURATION 10 % (20-50); IRON 28 ug/dL (28-170); TOTAL IRON BINDING CAPACITY 288 ug/dL (250-450); TRANSFERRIN 206 mg/dL (192-382)
--- NOTE | 2022-07-11 10:24 | DISCHARGE SUMMARY ---
"<Carola Mcdermott - Last Filed: 07/11/22 11:24> Discharge Summary Admit Date: 07/09/22 Discharge Date: 07/11/22 Discharging Provider: Lissett Mason MD Primary Care Provider: Hanny Gregg PA-C Code Status: Attempt Resuscitation Condition at Discharge: Fair Discharge Disposition: Home, Self Care - DIAGNOSES Admission Diagnoses: Pneumonia due to COVID-19 virus Acute hypoxemic respiratory failure Atrial fibrillation CKD stages G3b/A2, GFR 30-44 and albumin creatinine ratio 30-299 mg/g Macrocytic anemia Hyperlipidemia Hypertension - HPI History of Present Illness: 76F c hypertension, HLD, and afib on warfarin. p/w fever, cough, SOB, n/v/d, and malaise since this past Friday, 3 days ago. Patient reports her and her started having URIs symptoms. Both he and her took the COVID testing and he was tested positive but she was negative. She did not feel her test was accurate. Patient's breathing worsened and she felt not well and decided to come into the ED. Here in the ED patient is noted to be hypoxemic into the 80s with CXR citing multifocal infiltrates. COVID testing was ordered by the Hospitalist. BCx and UCx ordered by Hospitals as well. She is more comfortable now on 3 L NC. - CONSULTS | PROCEDURES Procedures: Chest XR EKG Telemetry - HOSPITAL COURSE Hospital Course: (1) Pneumonia due to COVID-19 virus Patient was admitted due to presenting with fever, cough, dyspnea, and n/v/d. Her was COVID positive at home. Her home test was negative. Her O2 sats were in the 80s in the ED. Her CXR showed diffuse airspace opacities. She ultimately tested positive for COVID. She was started on remdesivir, duoneb treatments, empiric abx for possible secondary PNA, and O2 supplementation. She improved, responded well to abx and antivirals, and was well oxygenated on room air. The duoneb was discontinued and switched to an albuterol metered dose inhaler, in order to lessen the exposure for staff. She still feels fatigued and weak, but overall feels well enough to go home to her and dog. Her antiviral will be discontinued. Pt will switch to PO augmentin abx treatment for 4 additional days. (2) Acute hypoxemic respiratory failure The source of her acute hypoxemia is very likely COVID, as she is positive. She was titrated from 3L to 1L nasal cannula. Her sats ranged between 93-97 on 1L. Today she was 96% on RA. She was switch from duoneb to albuterol treatments in order to decrease COVID exposure to staff. Today she looks pleasant and comfortable. Steroids will be discontinued upon discharge. (3) Atrial fibrillation Afib was diagnosed in 2013 after a hip replacement. It is rate controlled. Current management is metoprolol and diltiazem. She is anticoagulated with w arfarin, which was continued here during her stay. Her INR's have been 1.3 and 1.4. She was monitored on telemetry. She is to continue her home management upon discharge. She was advised to have her INR's evaluated more often with her PCP because of the possible interaction between the warfarin and her abx treatment. (4) CKD stage G3b/A2, GFR 30-44 and albumin creatinine ratio 30-299 mg/g On admission, patient's creatinine was 1.3, and eGFR 40. It was determined that she had Stage 3B CKD, and deemed chronic and baseline. There is no prior renal function to compare. This was unknown to pt until recently. While here, nephrotoxins were avoided. She was advised to follow up with her PCP for monitoring. (5) Macrocytic anemia CBC revealed mild macrocytic anemia. The workup revealed Vit B12 WNL, as well as ferritin studies, except for a low percent iron saturation. Pt should follow up with her PCP for a further evaluation. (6) Hyperlipidemia Home management consists of atorvastatin and Zetia. There was no indication to assess lipid panel during this admission. She is to follo up with her PCP as usual. (7) Hypertension The patient's HTN is controlled. Her pressures have been in the 110-120 systolic, and 60 diastolic. Today her latest bp was 147/82. Her metoprolol was started last night. I suspect her bp will begin to lower as she begins her metoprolol schedule as usual. - ALLERGIES Allergies/Adverse Reactions: Allergies Allergy/AdvReac Type Severity Reaction Status Date / Time No Known Drug Allergies Allergy Verified 07/09/22 17:10 - MEDICATIONS Home Medications: Ambulatory Orders Medication Instructions Recorded Confirmed Diltiazem HCl [Dilt-Xr] 240 mg PO DAILY 12/08/12 07/10/22 Metoprolol Tartrate 150 mg PO BID 12/08/12 07/10/22 Warfarin [Coumadin] 2.5 mg PO WESA 11/04/13 07/10/22 Atorvastatin Calcium 80 mg PO DAILY 06/09/17 07/10/22 Ezetimibe [Zetia] 10 mg PO DAILY 08/30/19 07/10/22 Clobetasol Propionate [Impoyz] 60 gm TP BID PRN #60 gm 08/28/20 07/10/22 Anastrozole 1 mg ORAL DAILY 10/01/21 07/10/22 Acetaminophen [Tylenol] 2 tab PO TID PRN 07/10/22 07/10/22 Amitriptyline HCl 1 tab PO HS PRN 07/10/22 07/10/22 Calcium Carb (Oyster Shell) 1 tab PO DAILY 07/10/22 07/10/22 [Oysco-500] [place]-3/Dha/Epa/Fish Oil [Fish Oil 1 cap PO DAILY 07/10/22 07/10/22 1,000 mg Softgel] Warfarin [Coumadin] 0.5 tab PO SUMOTUTHFR 07/10/22 07/10/22 Amox/Clav 500/125 [Augmentin 1 tablet PO Q12H #6 tablet 07/11/22 500/125] - PHYSICAL EXAM AT DISCHARGE General Appearance: positive: No acute distress, Alert Eyes Bilateral: positive: Normal inspection, EOMI ENT: positive: ENT inspection nml, No signs of dehydration Neck: positive: Nml inspection, No JVD, Trachea midline Respiratory: positive: Chest non-tender, No respiratory distress, Other (Crackles bilaterally on auscultation) Cardiovascular: positive: No murmur, No gallop, Irregularly irregular Peripheral Pulses: positive: 2+ Abdomen: positive: Non-tender, No organomegaly, Nml bowel sounds, No distention Back: positive: Nml inspection Skin: positive: Color nml, No rash, Warm, Dry Extremities: positive: Non-tender, Full ROM Neurologic/Psychiatric: positive: Oriented x3, CN's nml (2-12), Motor nml, Sensation nml, Mood/affect nml - LABS Result Diagrams: 07/09/22 17:30 07/09/22 17:30 - DIAGNOSTIC IMAGING Diagnostic Imaging Results: Final report reviewed - SEPSIS Current Stage of Sepsis: Ruled out <Lissett Mason - Last Filed: 07/12/22 12:14> Discharge Summary - HOSPITAL COURSE Hospital Course: greater than 30 minutes spent coordinating discharge. - LABS Result Diagrams: 07/09/22 17:30 07/09/22 17:30"
--- NOTE | 2022-07-11 11:30 | Discharge Plan ---
Discharge Plan Problem Reviewed?: Yes Disposition: Home, Self Care Condition: Fair Diet: Regular Activity Restrictions: Activity as Tolerated Shower Restrictions: No Driving Restrictions: No Health Concerns: Your came ill with a viral infection and then you became ill shortly thereafter. You got worse with cough, shortness of breath and had to come to the emergency room we found you to have COVID-pneumonia. You were sick enough that your oxygen level was low. You required oxygen. You have responded well to a couple of days of steroids, and an antiviral. On the day of discharge you are now on room air. You no longer need oxygen. You feel like you can go home. So we will be stopping the antiviral. But we would like you to complete 3 more days of oral antibiotic. The antibiotic is not for COVID. The antibiotic is to treat possible secondary bacterial pneumonia that COVID patients are prone to get. Plan of Treatment: 1. When patients take antibiotics and warfarin/Coumadin, your blood can be become even less coagulable. And your INR can sometimes be more prolonged than we would like. Please see your primary care provider in follow-up on Friday or Friday of next week to make sure that your INR is within range. 2. Please take an [id number] probiotic. The antibiotics can sometimes give you diarrhea and the probiotic will help reduce that. 3. Please see your primary care provider in follow-up to make sure your lung exam and your oxygen level is okay and that you are recovering. The current l iterature states that unless the patient is not in the hospital, you do not need further remdesivir or steroids at home. Care Goals: To get your strength back. Right now you are very fatigued. It is very understandable. While I do encourage you to get up every 2-3 hours and walk around her house, and practice using incentive spirometry, you do not need to do anything special. Assessment: Patient is alert, oriented, and able to complete activities of daily living No Smoking: If you smoke, Please STOP! Call for help. Follow-up with: Libia Gregg PA-C [Provider Admit Priv/Credential] -
[2022-07-11 12:27] VITALS: BP 102/72
[2022-07-11] MEDS ORDERED: WARFARIN 2.5 MG TABLET PO SCH (14:00)
== END 2022-07-11 12:35 | disposition home or self-care (01) | DRG 177 ==
LOC: ED 17:00 → MS2 20:06
PROVIDERS: ADMIT Internal Medicine; ATTEND Specialist
PROC: XW033E5 Introduction of Remdesivir Anti-infective into Peripheral Vein, Percutaneous Approach, New Technology Group 5 (ICD-10-PCS; principal; 2022-07-10)
PROC: 3E0333Z Introduction of Anti-inflammatory into Peripheral Vein, Percutaneous Approach (ICD-10-PCS; 2022-07-10)
DX: U07.1 COVID-19 (principal); J12.82 Pneumonia due to coronavirus disease 2019; J96.01 Acute respiratory failure with hypoxia; I48.91 Unspecified atrial fibrillation; I12.9 Hypertensive chronic kidney disease with stage 1 through stage 4 chronic kidney disease, or unspecified chronic kidney disease; N18.32 Chronic kidney disease, stage 3b; Z87.891 Personal history of nicotine dependence; N18.9 Chronic kidney disease, unspecified; D64.9 Anemia, unspecified; D53.9 Nutritional anemia, unspecified; E78.5 Hyperlipidemia, unspecified; Z79.01 Long term (current) use of anticoagulants; I25.10 Atherosclerotic heart disease of native coronary artery without angina pectoris; I25.2 Old myocardial infarction
CPT/HCPCS: 36415; 71045; 80048; 81001; 82607; 82728; 83540; 83615; 83880; 84145; 84466; 84484; 85025; 85045; 85610; 87040; 87633; 93005; 94640; 99285; A9270; 81003; 87086; 87280; 87637

== ENCOUNTER 2022-07-16 09:01 | Outpatient (CLI) | payer MEDICARE | END 2022-07-16 09:02 | disposition home or self-care (01) | LOC: LAB 09:01 | PROVIDERS: ATTEND Internal Medicine Cardiovascular Disease | DX: I48.91 Unspecified atrial fibrillation (principal); Z79.899 Other long term (current) drug therapy | CPT/HCPCS: 36416; 85610 ==

== ENCOUNTER 2022-07-30 08:36 | Outpatient (CLI) | payer MEDICARE | END 2022-07-30 08:37 | disposition home or self-care (01) | LOC: LAB 08:36 | PROVIDERS: ATTEND Internal Medicine Cardiovascular Disease | DX: I48.91 Unspecified atrial fibrillation (principal); Z79.899 Other long term (current) drug therapy | CPT/HCPCS: 36416; 85610 ==

== ENCOUNTER 2022-08-16 08:51 | Outpatient (CLI) | payer MEDICARE | END 2022-08-16 08:52 | disposition home or self-care (01) | LOC: LAB 08:51 | PROVIDERS: ATTEND Internal Medicine Cardiovascular Disease | DX: I48.91 Unspecified atrial fibrillation (principal); Z79.899 Other long term (current) drug therapy | CPT/HCPCS: 36416; 85610 ==

== ENCOUNTER 2022-08-30 08:30 | Outpatient (CLI) | payer MEDICARE | END 2022-08-30 08:31 | disposition home or self-care (01) | LOC: LAB 08:30 | PROVIDERS: ATTEND Internal Medicine Cardiovascular Disease | DX: I48.91 Unspecified atrial fibrillation (principal); Z79.899 Other long term (current) drug therapy | CPT/HCPCS: 36416; 85610 ==

== ENCOUNTER 2022-09-03 09:08 | Outpatient (CLI) | payer MEDICARE ==
[2022-09-03 09:22] LABS: BASOPHILS % (AUTO) 0.6 %; EOSINOPHILS # (AUTO) 0.1 10^3/uL (0.0-0.7); HCT - HEMATOCRIT 36.9 % (37.0-47.0); HGB - HEMOGLOBIN 12.2 g/dL (12.0-16.0); LYMPHOCYTES # (AUTO) 1.4 10^3/uL (1.5-3.5); LYMPHOCYTES % (AUTO) 19.7 %; MEAN CORPUSCULAR HEMOGLOBIN 33.1 pg (27.0-31.0); MEAN CORPUSCULAR HGB CONC 33.1 g/dL (32.0-36.0); MEAN PLATELET VOLUME 9.2 fL (7.9-10.8); MONOCYTES # (AUTO) 0.9 10^3/uL (0.0-1.0); NEUTROPHILS # (AUTO) 4.7 10^3/uL (1.5-6.6); NEUTROPHILS % (AUTO) 66.3 %; PLT - PLATELET COUNT 238 10^3/uL (130-450); RED BLOOD COUNT 3.69 10^6/uL (4.20-5.40); RED CELL DISTRIBUTION WIDTH 14.7 % (12.0-15.0); WHITE BLOOD COUNT 7.1 x10^3/uL (4.8-10.8)
[2022-09-03 09:44] LABS: ALBUMIN 3.8 g/dL (3.2-5.5); ALKALINE PHOSPHATASE 90 IU/L (42-121); ALT ALANINE AMINOTRANSFERASE 14 IU/L (10-60); AST ASPARTATE AMINOTRANSFERASE 25 IU/L (10-42); BILIRUBIN,TOTAL 0.9 mg/dL (0.2-1.0); BUN - BLOOD UREA NITROGEN 17 mg/dL (6-20); CARBON DIOXIDE - CO2 27 mmol/L (21-32); CHLORIDE 101 mmol/L (101-111); CHOLESTEROL 206 mg/dL; CREATININE 1.1 mg/dL (0.4-1.0); GFR - MDRD 49 (>89); GLUCOSE 118 mg/dL (70-100); HDL CHOLESTEROL 103 mg/dL; LDL CHOLESTEROL,CALCULATED 80 mg/dL; LDL/HDL RATIO 0.8 (<4.4); POTASSIUM 4.7 mmol/L (3.5-5.0); SODIUM 137 mmol/L (135-145); TOTAL PROTEIN 7.8 g/dL (6.7-8.2); TRIGLYCERIDES 115 mg/dL; VLDL CHOLESTEROL 23 mg/dL
== END 2022-09-03 09:09 | disposition home or self-care (01) ==
LOC: LAB 09:08
PROVIDERS: ATTEND Physician Assistant
DX: I48.91 Unspecified atrial fibrillation (principal); U09.9 Post COVID-19 condition, unspecified; E78.5 Hyperlipidemia, unspecified; D53.9 Nutritional anemia, unspecified
CPT/HCPCS: 36415; 80053; 80061; 83721; 85025

== ENCOUNTER 2022-09-16 10:48 | Outpatient (CLI) | payer MEDICARE ==
--- NOTE | 2022-09-16 11:37 | XRAY Report ---
PROCEDURE: Chest 2 View X-Ray INDICATIONS: HYPOXIA TECHNIQUE: 2 views of the chest were acquired. COMPARISON: None. FINDINGS: Surgical changes and devices: Right axillary clips Lungs and pleura: No pleural effusions or pneumothorax. Lungs are clear. Mediastinum: Mediastinal contours appear normal. Cardiomegaly. Bones and chest wall: No suspicious bony lesions. Overlying soft tissues appear unremarkable. IMPRESSION: Cardiomegaly. No acute pulmonary process. Reviewed by: Jesus Manuel Witt MD on 09/16/2022 11:36 AM PDT Approved by: Jesus Manuel Witt MD on 09/16/2022 11:36 AM PDT Station ID: [id number]
== END 2022-09-16 10:49 | disposition home or self-care (01) ==
LOC: DI 10:48
PROVIDERS: ATTEND Physician Assistant Medical
DX: R09.02 Hypoxemia (principal)

== ENCOUNTER 2022-09-20 08:47 | Outpatient (CLI) | payer MEDICARE | END 2022-09-20 08:48 | disposition home or self-care (01) | LOC: LAB 08:47 | PROVIDERS: ATTEND Internal Medicine Cardiovascular Disease | DX: I48.91 Unspecified atrial fibrillation (principal); Z79.899 Other long term (current) drug therapy | CPT/HCPCS: 36416; 85610 ==

== ENCOUNTER 2022-09-25 09:51 | Outpatient (CLI) | payer MEDICARE ==
--- NOTE | 2022-09-25 21:06 | CT Report ---
PROCEDURE: CHEST WO INDICATIONS: HYPOXIA TECHNIQUE: Noncontrast 1mm axial images were acquired from the pulmonary apices to the posterior costophrenic an gles. Axial 5 mm soft tissue kernel reconstructions were performed as well as 8 mm axial MIP and cor onal and sagittal 5 mm reformations. For radiation dose reduction, the following was used: automate d exposure control, adjustment of mA and/or kV according to patient size. COMPARISON: Chest CT 06/25/2021 FINDINGS: Image quality: Excellent. Lungs and pleura: Groundglass and consolidative opacities within the left greater than right lower lo bes and posterior right upper lobe. Subpleural reticulations are again seen in the anterolateral righ t middle lobe.. Small bilateral pleural effusions. No suspicious pulmonary nodules which require foll ow up. Mediastinum: Heart size is enlarged. No pericardial effusion. Dilated main pulmonary artery of 3.3 cm , suggestive of pulmonary hypertension. Extensive atherosclerotic vascular calcifications. Severe thr ee-vessel coronary artery calcifications.. No mediastinal adenopathy by size criteria. Chest wall and lower neck: Thyroid is unremarkable. No axillary or supraclavicular adenopathy by size . Nodular lesion within the right breast with multiple surgical clips, recommend correlation with margie mography. Bones: No aggressive osseous abnormality. Decreased osseous mineralization and multilevel degenerativ e changes of the spine. Multiple old bilateral rib fractures. Upper Abdomen: Unremarkable. IMPRESSION: 1.Small bilateral pleural effusions. Groundglass and consolidative opacities within the left greater than right lower lobes and posterior right upper lobe. Findings are concerning for infection. 2.No suspicious pulmonary nodules. 3.Dilated main pulmonary artery, suggestive of pulmonary hypertension. 4.Extensive atherosclerotic vascular calcifications including severe three-vessel coronary artery dis ease. 5.Stable lesion within the right breast with multiple surgical clips, correlate with age-appropriate mammography. Reviewed by: Ken Sun MD on 09/25/2022 9:04 PM PDT Approved by: Ken Sun MD on 09/25/2022 9:04 PM PDT Station ID: [id number]
== END 2022-09-25 09:52 | disposition home or self-care (01) ==
LOC: DI 09:51
PROVIDERS: ATTEND Physician Assistant Medical
DX: R09.02 Hypoxemia (principal); J90 Pleural effusion, not elsewhere classified; R91.8 Other nonspecific abnormal finding of lung field; I77.89 Other specified disorders of arteries and arterioles; I28.9 Disease of pulmonary vessels, unspecified; I25.10 Atherosclerotic heart disease of native coronary artery without angina pectoris; N64.9 Disorder of breast, unspecified

== ENCOUNTER 2022-10-04 08:21 | Outpatient (CLI) | payer MEDICARE | END 2022-10-04 08:22 | disposition home or self-care (01) | LOC: LAB 08:21 | PROVIDERS: ATTEND Internal Medicine Cardiovascular Disease | DX: I48.91 Unspecified atrial fibrillation (principal); Z79.899 Other long term (current) drug therapy; Z51.81 Encounter for therapeutic drug level monitoring; Z79.01 Long term (current) use of anticoagulants | CPT/HCPCS: 36416; 85610 ==

== ENCOUNTER 2022-10-11 08:49 | Outpatient (CLI) | payer MEDICARE | END 2022-10-11 08:50 | disposition home or self-care (01) | LOC: LAB 08:49 | PROVIDERS: ATTEND Internal Medicine Cardiovascular Disease | DX: I48.91 Unspecified atrial fibrillation (principal); Z79.899 Other long term (current) drug therapy | CPT/HCPCS: 36416; 85610 ==

== ENCOUNTER 2022-10-18 09:09 | Outpatient (CLI) | payer MEDICARE | END 2022-10-18 09:10 | disposition home or self-care (01) | LOC: LAB 09:09 | PROVIDERS: ATTEND Internal Medicine Cardiovascular Disease | DX: I48.91 Unspecified atrial fibrillation (principal); Z79.899 Other long term (current) drug therapy | CPT/HCPCS: 36416; 85610 ==

== ENCOUNTER 2022-10-25 08:27 | Outpatient (CLI) | payer MEDICARE | END 2022-10-25 08:28 | disposition home or self-care (01) | LOC: LAB 08:27 | PROVIDERS: ATTEND Internal Medicine Cardiovascular Disease | DX: I48.91 Unspecified atrial fibrillation (principal); Z79.899 Other long term (current) drug therapy | CPT/HCPCS: 36416; 85610 ==

== ENCOUNTER 2022-11-01 08:07 | Outpatient (CLI) | payer MEDICARE | END 2022-11-01 08:08 | disposition home or self-care (01) | LOC: LAB 08:07 | PROVIDERS: ATTEND Internal Medicine Cardiovascular Disease | DX: I48.91 Unspecified atrial fibrillation (principal); Z79.899 Other long term (current) drug therapy | CPT/HCPCS: 36416; 85610 ==

== ENCOUNTER 2022-11-27 11:06 | Outpatient (CLI) | payer MEDICARE ==
--- NOTE | 2022-11-28 10:01 | Mammography Report ---
BILATERAL DIGITAL SCREENING MAMMOGRAM 3D/2D: 11/27/2022 CLINICAL: Routine screening. History of bilateral breast cancer. Comparison is made to exams dated: 10/26/2021 mammogram, 10/10/2020 mammogram, 10/04/2019 mammogram, 08/18 mammogram, 03/06/2018 mammogram, and 08/28/2017 mammogram - [facility]. Both breasts are heterogeneously dense, which may obscure small masses (category c / 51-75% glandular tissue). There is a benign calcification in both breasts. There also are benign vascular calcifications in petar th breasts. Additionally, there are benign post operative findings in the right breast. Additionall y, there also is a biopsy clip in the left breast. No significant masses, calcifications, or other findings are seen in either breast. There has been no significant interval change. IMPRESSION: BENIGN There is no mammographic evidence of malignancy. A 1 year screening mammogram is recommended. This exam was interpreted at Station ID: [id number]. NOTE: For mammograms, a report in lay terms will be sent to the patient. Approximately 15% of breast malignancies will not be visualized mammographically. In the management of a palpable breast mass, a negative mammogram must not discourage biopsy of a clinically suspicious lesion. Electronically Signed By: Kaleb Ash M.D. aty/:11/28/2022 07:19:47 letter sent: No_Letter ACR BI-RADS Category 2: Benign Finding(s) 3342F PARENCHYMAL PATTERN: (D) - The breast(s) demonstrate(s) heterogeneously dense fibroglandular lucy boucher. BI-RADS CATEGORY: (2) - 2 Mammogram [id number] 1 year screening LATERALITY: (B)
== END 2022-11-27 11:07 | disposition home or self-care (01) ==
LOC: DI 11:06
PROVIDERS: ATTEND Internal Medicine Hematology & Oncology
DX: Z12.31 Encounter for screening mammogram for malignant neoplasm of breast (principal); R92.333 Mammographic heterogeneous density, bilateral breasts; Z85.3 Personal history of malignant neoplasm of breast

== ENCOUNTER 2022-11-29 08:40 | Outpatient (CLI) | payer MEDICARE | END 2022-11-29 08:41 | disposition home or self-care (01) | LOC: LAB 08:40 | PROVIDERS: ATTEND Internal Medicine Cardiovascular Disease | DX: I48.91 Unspecified atrial fibrillation (principal); Z79.899 Other long term (current) drug therapy | CPT/HCPCS: 36416; 85610 ==

== ENCOUNTER 2022-12-26 09:00 | Outpatient (CLI) | payer MEDICARE | END 2022-12-26 09:01 | disposition home or self-care (01) | LOC: LAB 09:00 | PROVIDERS: ATTEND Internal Medicine Cardiovascular Disease | DX: I48.91 Unspecified atrial fibrillation (principal); Z79.899 Other long term (current) drug therapy | CPT/HCPCS: 36416; 85610 ==

== ENCOUNTER 2022-12-31 07:49 | Outpatient (CLI) | payer MEDICARE | END 2022-12-31 07:50 | disposition home or self-care (01) | LOC: DI 07:49 | PROVIDERS: ATTEND Internal Medicine Cardiovascular Disease | DX: R06.09 Other forms of dyspnea (principal); I25.2 Old myocardial infarction; I87.8 Other specified disorders of veins; I48.91 Unspecified atrial fibrillation; I08.1 Rheumatic disorders of both mitral and tricuspid valves | CPT/HCPCS: 93306 ==

== ENCOUNTER 2023-01-23 09:22 | Outpatient (CLI) | payer MEDICARE | END 2023-01-23 09:23 | disposition home or self-care (01) | LOC: LAB 09:22 | PROVIDERS: ATTEND Internal Medicine Cardiovascular Disease | DX: I48.91 Unspecified atrial fibrillation (principal); Z79.899 Other long term (current) drug therapy | CPT/HCPCS: 36416; 85610 ==

== ENCOUNTER 2023-01-30 12:32 | Outpatient (CLI) | payer MEDICARE | END 2023-01-30 12:33 | disposition home or self-care (01) | LOC: LAB 12:32 | PROVIDERS: ATTEND Internal Medicine Cardiovascular Disease | DX: Z53.9 Procedure and treatment not carried out, unspecified reason (principal) ==

== ENCOUNTER 2023-02-20 08:52 | Outpatient (CLI) | payer MEDICARE | END 2023-02-20 08:53 | disposition home or self-care (01) | LOC: LAB 08:52 | PROVIDERS: ATTEND Internal Medicine Cardiovascular Disease | DX: I48.91 Unspecified atrial fibrillation (principal); Z79.899 Other long term (current) drug therapy | CPT/HCPCS: 36416; 85610 ==

== ENCOUNTER 2023-03-07 08:55 | Outpatient (CLI) | payer MEDICARE ==
[2023-03-07 09:44] LABS: CALCIUM 9.1 mg/dL (8.5-10.3); CREATININE 1.5 mg/dL (0.6-1.3); POTASSIUM 6.1 mmol/L (3.5-4.5)
== END 2023-03-07 08:56 | disposition home or self-care (01) ==
LOC: LAB 08:55
PROVIDERS: ATTEND Internal Medicine Cardiovascular Disease
DX: I25.2 Old myocardial infarction (principal); I48.0 Paroxysmal atrial fibrillation; Z79.899 Other long term (current) drug therapy
CPT/HCPCS: 36415; 80048; 85610

== ENCOUNTER 2023-03-12 11:00 | Outpatient (CLI) | payer MEDICARE ==
[2023-03-12 11:29] LABS: CALCIUM 9.3 mg/dL (8.5-10.3); CREATININE 1.3 mg/dL (0.6-1.3); POTASSIUM 5.4 mmol/L (3.5-4.5)
== END 2023-03-12 11:01 | disposition home or self-care (01) ==
LOC: LAB 11:00
PROVIDERS: ATTEND Internal Medicine Cardiovascular Disease
DX: I25.2 Old myocardial infarction (principal)
CPT/HCPCS: 36415; 80048

== ENCOUNTER 2023-03-24 08:36 | Outpatient (CLI) | payer MEDICARE ==
[2023-03-24 08:59] LABS: BASOPHILS # (AUTO) 0.1 10^3/uL (0.0-0.1); BASOPHILS % (AUTO) 0.7 %; EOSINOPHILS # (AUTO) 0.1 10^3/uL (0.0-0.7); HCT - HEMATOCRIT 35.3 % (37.0-47.0); HGB - HEMOGLOBIN 11.6 g/dL (12.0-16.0); LYMPHOCYTES # (AUTO) 1.1 10^3/uL (1.5-3.5); LYMPHOCYTES % (AUTO) 15.9 %; MEAN CORPUSCULAR HEMOGLOBIN 33.6 pg (27.0-31.0); MEAN CORPUSCULAR HGB CONC 32.9 g/dL (32.0-36.0); MEAN CORPUSCULAR VOLUME 102.3 fL (81.0-99.0); MEAN PLATELET VOLUME 9.4 fL (7.9-10.8); MONOCYTES # (AUTO) 0.8 10^3/uL (0.0-1.0); MONOCYTES % (AUTO) 11.3 %; NEUTROPHILS % (AUTO) 69.8 %; PLT - PLATELET COUNT 251 10^3/uL (130-450); RED BLOOD COUNT 3.45 10^6/uL (4.20-5.40); WHITE BLOOD COUNT 7.2 x10^3/uL (4.8-10.8)
[2023-03-24 09:14] LABS: INR 1.2 (0.8-1.2); PT - PROTHROMBIN TIME 13.3 secs (9.9-12.6)
[2023-03-24 09:20] LABS: ALBUMIN/GLOBULIN RATIO 1.3 (1.0-2.2); BILIRUBIN,TOTAL 0.7 mg/dL (0.2-1.0); CALCIUM 9.2 mg/dL (8.5-10.3); CREATININE 1.1 mg/dL (0.6-1.3); POTASSIUM 4.4 mmol/L (3.5-4.5); TOTAL PROTEIN 7.2 g/dL (6.4-8.9)
== END 2023-03-24 08:37 | disposition home or self-care (01) ==
LOC: LAB 08:36
PROVIDERS: ATTEND Internal Medicine Cardiovascular Disease
DX: I25.2 Old myocardial infarction (principal); I48.91 Unspecified atrial fibrillation; Z79.899 Other long term (current) drug therapy
CPT/HCPCS: 36415; 80053; 85025; 85610

== ENCOUNTER 2023-04-14 09:28 | Outpatient (CLI) | payer MEDICARE | END 2023-04-14 09:29 | disposition home or self-care (01) | LOC: LAB 09:28 | PROVIDERS: ATTEND Internal Medicine Cardiovascular Disease | DX: I48.91 Unspecified atrial fibrillation (principal); Z79.899 Other long term (current) drug therapy | CPT/HCPCS: 36416; 85610 ==

== ENCOUNTER 2023-04-17 08:49 | Outpatient (CLI) | payer MEDICARE | END 2023-04-17 08:50 | disposition home or self-care (01) | LOC: LAB 08:49 | PROVIDERS: ATTEND Internal Medicine Cardiovascular Disease | DX: I48.91 Unspecified atrial fibrillation (principal); Z79.899 Other long term (current) drug therapy | CPT/HCPCS: 36416; 85610 ==

== ENCOUNTER 2023-04-23 08:31 | Outpatient (CLI) | payer MEDICARE | END 2023-04-23 08:32 | disposition home or self-care (01) | LOC: LAB 08:31 | PROVIDERS: ATTEND Internal Medicine Cardiovascular Disease | DX: I48.91 Unspecified atrial fibrillation (principal); Z79.899 Other long term (current) drug therapy | CPT/HCPCS: 36416; 85610 ==

== ENCOUNTER 2023-05-07 09:22 | Outpatient (CLI) | payer MEDICARE | END 2023-05-07 09:23 | disposition home or self-care (01) | LOC: LAB 09:22 | PROVIDERS: ATTEND Internal Medicine Cardiovascular Disease | DX: I48.91 Unspecified atrial fibrillation (principal); Z79.899 Other long term (current) drug therapy | CPT/HCPCS: 36416; 85610 ==

== ENCOUNTER 2023-05-28 08:51 | Outpatient (CLI) | payer MEDICARE | END 2023-05-28 08:52 | disposition home or self-care (01) | LOC: LAB 08:51 | PROVIDERS: ATTEND Internal Medicine Cardiovascular Disease | DX: I48.91 Unspecified atrial fibrillation (principal); Z79.899 Other long term (current) drug therapy | CPT/HCPCS: 36416; 85610 ==

== ENCOUNTER 2023-05-31 10:07 | Outpatient (CLI) | payer MEDICARE | END 2023-05-31 10:08 | disposition home or self-care (01) | LOC: LAB 10:07 | PROVIDERS: ATTEND Internal Medicine Cardiovascular Disease | DX: I25.2 Old myocardial infarction (principal) ==

== ENCOUNTER 2023-05-31 10:11 | Outpatient (CLI) | payer MEDICARE ==
[2023-05-31 10:25] LABS: BASOPHILS % (AUTO) 0.4 %; EOSINOPHILS # (AUTO) 0.1 10^3/uL (0.0-0.7); EOSINOPHILS % (AUTO) 1.1 %; HCT - HEMATOCRIT 32.1 % (37.0-47.0); HGB - HEMOGLOBIN 10.7 g/dL (12.0-16.0); LYMPHOCYTES # (AUTO) 1.1 10^3/uL (1.5-3.5); LYMPHOCYTES % (AUTO) 12.6 %; MEAN CORPUSCULAR HEMOGLOBIN 35.4 pg (27.0-31.0); MEAN CORPUSCULAR HGB CONC 33.3 g/dL (32.0-36.0); MEAN CORPUSCULAR VOLUME 106.3 fL (81.0-99.0); MEAN PLATELET VOLUME 9.1 fL (7.9-10.8); MONOCYTES % (AUTO) 11.9 %; NEUTROPHILS # (AUTO) 6.2 10^3/uL (1.5-6.6); NEUTROPHILS % (AUTO) 73.6 %; PLT - PLATELET COUNT 197 10^3/uL (130-450); RED BLOOD COUNT 3.02 10^6/uL (4.20-5.40); RED CELL DISTRIBUTION WIDTH 14.6 % (12.0-15.0); WHITE BLOOD COUNT 8.4 x10^3/uL (4.8-10.8)
[2023-05-31 10:39] LABS: ALBUMIN 3.9 g/dL (3.2-5.5); ALBUMIN/GLOBULIN RATIO 1.1 (1.0-2.2); ALKALINE PHOSPHATASE 99 IU/L (42-121); ALT ALANINE AMINOTRANSFERASE 10 IU/L (10-60); AST ASPARTATE AMINOTRANSFERASE 22 IU/L (10-42); BILIRUBIN,TOTAL 0.9 mg/dL (0.2-1.0); BUN - BLOOD UREA NITROGEN 24 mg/dL (6-20); CALCIUM 9.8 mg/dL (8.5-10.3); CARBON DIOXIDE - CO2 26 mmol/L (21-32); CHLORIDE 99 mmol/L (101-111); CHOL/HDL RATIO 1.7 (<4.4); CHOLESTEROL 176 mg/dL; CREATININE 1.5 mg/dL (0.6-1.3); GFR - MDRD 34 (>89); GLUCOSE 118 mg/dL (74-104); HDL CHOLESTEROL 103 mg/dL; LDL CHOLESTEROL,CALCULATED 58 mg/dL; LDL/HDL RATIO 0.6 (<4.4); MAGNESIUM 1.6 mg/dL (1.7-2.3); POTASSIUM 5.5 mmol/L (3.5-4.5); SODIUM 133 mmol/L (135-145); TOTAL PROTEIN 7.3 g/dL (6.4-8.9); TRIGLYCERIDES 76 mg/dL (48-352); VLDL CHOLESTEROL 15 mg/dL
== END 2023-05-31 10:12 | disposition home or self-care (01) ==
LOC: LAB 10:11
PROVIDERS: ATTEND Physician Assistant Medical
DX: N18.9 Chronic kidney disease, unspecified (principal); E78.5 Hyperlipidemia, unspecified
CPT/HCPCS: 36415; 80053; 80061; 83721; 83735; 85025

== ENCOUNTER 2023-06-24 09:24 | Outpatient (CLI) | payer MEDICARE | END 2023-06-24 09:25 | disposition home or self-care (01) | LOC: LAB 09:24 | PROVIDERS: ATTEND Internal Medicine Cardiovascular Disease | DX: I48.91 Unspecified atrial fibrillation (principal); Z79.899 Other long term (current) drug therapy | CPT/HCPCS: 36416; 85610 ==

== ENCOUNTER 2023-06-27 09:38 | Outpatient (CLI) | payer MEDICARE ==
[2023-06-27 09:50] LABS: BASOPHILS % (AUTO) 0.4 %; EOSINOPHILS # (AUTO) 0.1 10^3/uL (0.0-0.7); EOSINOPHILS % (AUTO) 1.1 %; HCT - HEMATOCRIT 32.5 % (37.0-47.0); HGB - HEMOGLOBIN 10.8 g/dL (12.0-16.0); LYMPHOCYTES # (AUTO) 1.1 10^3/uL (1.5-3.5); LYMPHOCYTES % (AUTO) 12.6 %; MEAN CORPUSCULAR HEMOGLOBIN 35.3 pg (27.0-31.0); MEAN CORPUSCULAR HGB CONC 33.2 g/dL (32.0-36.0); MEAN CORPUSCULAR VOLUME 106.2 fL (81.0-99.0); MEAN PLATELET VOLUME 8.8 fL (7.9-10.8); MONOCYTES % (AUTO) 11.5 %; NEUTROPHILS # (AUTO) 6.2 10^3/uL (1.5-6.6); NEUTROPHILS % (AUTO) 74.2 %; PLT - PLATELET COUNT 223 10^3/uL (130-450); RED BLOOD COUNT 3.06 10^6/uL (4.20-5.40); RED CELL DISTRIBUTION WIDTH 13.4 % (12.0-15.0); WHITE BLOOD COUNT 8.3 x10^3/uL (4.8-10.8)
[2023-06-27 10:04] LABS: ALBUMIN 3.9 g/dL (3.2-5.5); ALBUMIN/GLOBULIN RATIO 1.2 (1.0-2.2); BILIRUBIN,TOTAL 0.8 mg/dL (0.2-1.0); CALCIUM 9.5 mg/dL (8.5-10.3); CREATININE 1.2 mg/dL (0.6-1.3); POTASSIUM 4.8 mmol/L (3.5-4.5); TOTAL PROTEIN 7.1 g/dL (6.4-8.9)
[2023-06-27 10:26] LABS: FERRITIN 94.3 ng/mL (11.0-306.8)
== END 2023-06-27 09:39 | disposition home or self-care (01) ==
LOC: LAB 09:38
PROVIDERS: ATTEND Physician Assistant Medical
DX: E87.5 Hyperkalemia (principal); D64.9 Anemia, unspecified; E83.42 Hypomagnesemia
CPT/HCPCS: 36415; 80053; 82607; 82728; 82746; 83540; 83735; 84466; 85025

== ENCOUNTER 2023-07-09 09:26 | Outpatient (CLI) | payer MEDICARE | END 2023-07-09 09:27 | disposition home or self-care (01) | LOC: LAB 09:26 | PROVIDERS: ATTEND Internal Medicine Cardiovascular Disease | DX: I48.91 Unspecified atrial fibrillation (principal); Z79.899 Other long term (current) drug therapy | CPT/HCPCS: 36416; 85610 ==

== ENCOUNTER 2023-07-10 12:43 | Outpatient (CLI) | payer MEDICARE | END 2023-07-10 12:44 | disposition home or self-care (01) | LOC: LAB 12:43 | PROVIDERS: ATTEND Internal Medicine Cardiovascular Disease | DX: I48.91 Unspecified atrial fibrillation (principal); Z79.899 Other long term (current) drug therapy | CPT/HCPCS: 36416; 85610 ==

== ENCOUNTER 2023-10-16 12:05 | Outpatient (CLI) | payer MEDICARE ==
[2023-10-16 12:42] LABS: BASOPHILS # (AUTO) 0.1 10^3/uL (0.0-0.1); BASOPHILS % (AUTO) 0.6 %; EOSINOPHILS # (AUTO) 0.1 10^3/uL (0.0-0.7); EOSINOPHILS % (AUTO) 1.4 %; HCT - HEMATOCRIT 31.1 % (37.0-47.0); HGB - HEMOGLOBIN 10.6 g/dL (12.0-16.0); LYMPHOCYTES # (AUTO) 1.1 10^3/uL (1.5-3.5); LYMPHOCYTES % (AUTO) 14.2 %; MEAN CORPUSCULAR HEMOGLOBIN 33.2 pg (27.0-31.0); MEAN CORPUSCULAR HGB CONC 34.1 g/dL (32.0-36.0); MEAN CORPUSCULAR VOLUME 97.5 fL (81.0-99.0); MONOCYTES # (AUTO) 0.9 10^3/uL (0.0-1.0); MONOCYTES % (AUTO) 11.1 %; NEUTROPHILS # (AUTO) 5.6 10^3/uL (1.5-6.6); NEUTROPHILS % (AUTO) 72.2 %; PLT - PLATELET COUNT 229 10^3/uL (130-450); RED BLOOD COUNT 3.19 10^6/uL (4.20-5.40); RED CELL DISTRIBUTION WIDTH 14.6 % (12.0-15.0); WHITE BLOOD COUNT 7.7 x10^3/uL (4.8-10.8)
[2023-10-16 12:51] LABS: CALCIUM 8.8 mg/dL (8.5-10.3); CREATININE 1.2 mg/dL (0.6-1.3); MAGNESIUM 1.1 mg/dL (1.7-2.3); POTASSIUM 4.6 mmol/L (3.5-4.5)
== END 2023-10-16 12:06 | disposition home or self-care (01) ==
LOC: LAB 12:05
PROVIDERS: ATTEND Physician Assistant Medical
DX: E87.5 Hyperkalemia (principal); D64.9 Anemia, unspecified; E83.42 Hypomagnesemia
CPT/HCPCS: 36415; 80048; 82607; 83735; 85025

== ENCOUNTER 2023-11-06 10:12 | Outpatient (CLI) | payer MEDICARE ==
[2023-11-06 10:44] LABS: ALBUMIN 3.3 g/dL (3.2-5.5); BILIRUBIN,TOTAL 1.1 mg/dL (0.2-1.0); CALCIUM 9.1 mg/dL (8.5-10.3); CREATININE 1.2 mg/dL (0.6-1.3); MAGNESIUM 1.6 mg/dL (1.7-2.3); POTASSIUM 4.7 mmol/L (3.5-4.5); TOTAL PROTEIN 6.7 g/dL (6.4-8.9)
== END 2023-11-06 10:13 | disposition home or self-care (01) ==
LOC: LAB 10:12
PROVIDERS: ATTEND Physician Assistant Medical
DX: E87.5 Hyperkalemia (principal); E83.42 Hypomagnesemia
CPT/HCPCS: 36415; 80053; 83735